=== PATIENT | female | born 1965 | race Caucasian/White ===

== ENCOUNTER 2017-03-10 09:00 | Outpatient (RCR) | payer MEDICAID, SELFPAY | END 2017-03-10 23:59 | LOC: PT.CARL 09:00 | PROVIDERS: Referring Provider Neurological Surgery; Visit Provider Neurological Surgery | DX: M54.12 Radiculopathy, cervical region (principal); G93.0 Cerebral cysts | CPT/HCPCS: 97162 ==

== ENCOUNTER 2017-03-12 09:49 | Outpatient (RCR) | payer MEDICAID, SELFPAY | END 2017-03-12 23:59 | LOC: PT 09:49 | PROVIDERS: Family Provider Physician Assistant; PCP Physician Assistant; Visit Provider Neurological Surgery | DX: M54.12 Radiculopathy, cervical region (principal) ==

== ENCOUNTER → 2017-04-18 10:17 | Outpatient (CLI) | payer MEDICAID, SELFPAY ==
[2017-04-18 20:35] LABS: Amphetamine/Metha Screen,Urine Negative ng/mL (<1000); Barbiturates Screen,Urine Negative ng/mL (<200); Benzodiazepines Screen,Urine Negative ng/mL (200); Cannabinoid Screen,Urine Positive ng/mL (<50); Cocaine Screen,Urine Negative ng/g (<300); Methadone Screen,Urine Negative ng/mL (<300); Opiate Screen,Urine Positive ng/mL (<300); Phencyclidine Screen,Urine Negative ng/mL (<25)
== END ==
PROVIDERS: Visit Provider Nurse Practitioner Family
DX: M54.9 Dorsalgia, unspecified (principal); Z79.899 Other long term (current) drug therapy
CPT/HCPCS: 80305

== ENCOUNTER 2017-05-25 09:30 | Outpatient (RCR) | payer MEDICAID, SELFPAY | END 2017-06-01 13:00 | disposition home or self-care (01) | LOC: PT 09:30 | PROVIDERS: Family Provider Physician Assistant; PCP Physician Assistant; Visit Provider Neurological Surgery | DX: G93.0 Cerebral cysts (principal); M50.20 Other cervical disc displacement, unspecified cervical region | CPT/HCPCS: 97035; 97110 ==

== ENCOUNTER 2017-06-20 09:00 | Outpatient (RCR) | payer MEDICAID, SELFPAY ==
--- NOTE | 2017-06-09 10:26 | HMH.PTOPWND ---
Rehab Outpt Wound Evaluation Rehab OP Wound Evaluation Start: 06/09/17 10:22 Freq: Status: Active Protocol: Document 06/09/17 10:23 ROYA (Rec: 06/09/17 10:26 ROYA [id number]) Electronically Signed By Hubert Ponce, PT 06/09/17 10:23 Subjective/History History History Pt presents with c/o left UE edema x ~ 12 yrs due to severeal left breast lumpectomies with biopsy. 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 SHe has had treatment for lymphedema in the past with good results. Currently she c/ o heavy feeling in the left UE . Lymphedema Eval Classification of Lymphedema Secondary Lymphedema Yes Stage of Lymphedema Lymphedema stages Stage 0 (subjective c/o heaviness and aching) Pain Scale Pain Scale (0-10) 3 Upper Extremity Measurements Left MCP Measurement (cm) 18.8 Web Space Measurement (cm) 20.8 Ulnar Styloid Process Measurement (cm) 17.1 10 cm Proximal to Ulnar Styloid 23.3 Measurement (cm) 20 cm Proximal to Ulnar Styloid 29.4 Measurement (cm) 30 cm Proximal to Ulnar Styloid 34.8 Measurement (cm) 40 cm Proximal to Ulnar Styloid 37.2 Measurement (cm) 50 cm Proximal to Ulnar Styloid 42.0 Measurement (cm) Manual Lymphatic Drainage Treatment Area MLD Treatment Area Left Upper Extremity Wound Problems/Impairments Impairments Problems/Impairmments Palpation Tenderness Increased Edema Lymphedema Present Subjective C/O Pain Impaired Self Care/Self Management Prognosis Rehab Potential Good Clinical Impression Consistent with Diagnosis Yes Short Term Goals Number of Weeks 4 Decreased Palpation Tenderness Yes: to min Patient to Understand Lymphedema Yes Treatment and Exercises Decrease Girth Measurments by (cm) Yes: by 5 cm 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
== END 2017-06-20 09:01 | disposition home or self-care (01) ==
LOC: PT 09:00
PROVIDERS: Family Provider Physician Assistant; PCP Physician Assistant; Visit Provider Physician Assistant
DX: I89.0 Lymphedema, not elsewhere classified (principal)
CPT/HCPCS: 97140; 97162; 97760

== ENCOUNTER 2017-07-26 10:00 | Outpatient (RCR) | payer MEDICAID, SELFPAY ==
--- NOTE | 2017-07-04 10:56 | HMH.PTOPWND ---
Rehab Outpt Wound Evaluation Rehab OP Wound Evaluation Start: 07/04/17 10:51 Freq: Status: Active Protocol: Document 07/04/17 10:51 ROYA (Rec: 07/04/17 10:56 PHOALICE [id number]) Electronically Signed By Hubert Ponce, PT 07/04/17 10:51 Subjective/History History History Pt presents with c/o left UE edema x ~ 12 yrs due to left Lumpectomy with biopsy. She reports minimal tenderness to palpation and left breast feels hard . She reports PMH of interstitial cystitis, cardiac arrythmias, and cervical disc bulge. Lymphedema Eval Classification of Lymphedema Secondary Lymphedema Yes Stage of Lymphedema Lymphedema stages Stage II (Pitting edema, increased fibrosis w/ decreased pitting) Pain Scale Pain Scale (0-10) 3 Manual Lymphatic Drainage Treatment Area MLD Treatment Area Left Upper Extremity Wound Problems/Impairments Impairments Problems/Impairmments Palpation Tenderness Increased Edema Lymphedema Present Subjective C/O Pain Impaired Self Care/Self Management Prognosis Rehab Potential Good Clinical Impression Consistent with Diagnosis Yes Short Term Goals Number of Weeks 4 Decreased Palpation Tenderness Yes: to min Decrease Subjective C/O Pain Yes: 2/10 Patient to Understand Lymphedema Yes Treatment and Exercises Decrease Girth Measurments by (cm) Yes: by 5 cm [facility] Goals Number of Weeks 8 Decreased Palpation Tenderness Yes: to none Decrease Subjective C/O Pain Yes: 1/ Patient to be Ind w/ HEP Yes Patient to Adhere Lymphedema Precautions Yes Decrease Girth Measurments by (cm) Yes: by 10 cm Outpatient Therapy Plan of Care Treatment Plan May Include Therapeutic Exercise Including Home Yes Exercise Program Manual Therapy Techniques Yes Neuromuscular Re-education Yes Orthotics/Bracing/Splinting Yes Massage Yes Manual Lymphatic Drainage Yes Eval/Re-Eval Yes Frequency Times per week 2 Duration Number of Weeks 8 Addendums This patient is a candidate for social Yes or vocational rehab? Patient/Guardian verbally acknowledges Yes understanding of treatment program and consents to further treatment? Patient/Guardian verbally acknowledges Yes
== END 2017-07-26 10:01 | disposition home or self-care (01) ==
LOC: PT 10:00
PROVIDERS: Family Provider Physician Assistant; PCP Physician Assistant; Visit Provider Physician Assistant
DX: I89.0 Lymphedema, not elsewhere classified (principal)
CPT/HCPCS: 97140; 97162; 97760

== ENCOUNTER → 2017-12-05 09:09 | Outpatient (REF) | payer MEDICAID, SELFPAY ==
[2017-12-05 14:04] LABS: Alanine Aminotransferase 29 U/L (12-78); Albumin Level 3.5 gm/dL (3.4-5.0); Albumin/Globulin Ratio 0.9 (1.1-1.8); Alkaline Phosphatase 74 U/L (46-116); Anion Gap 12.1 mEq/L (5-15); Aspartate Amino Transferase 24 U/L (15-37); Bilirubin,Total 0.3 mg/dL (0.2-1.0); Blood Urea Nitrogen 9 mg/dL (7-18); Calcium 9.2 mg/dL (8.5-10.1); Carbon Dioxide 30 mmol/L (21.0-32.0); Chloride 104 mmol/L (98-107); Chol/HDL Ratio 5.2 (1-3.5); Cholesterol 257 mg/dL (140-200); Creatinine,Serum 0.77 mg/dL (0.55-1.02); Estimated Glomerular Filt Rate 78 ml/min (>60); GFR (African American) 95 ML/MIN (>60); Globulin 4.1 gm/dl (1.3-3.2); Glucose 84 mg/dL (74-106); HDL Cholesterol 49 mg/dL (29-89); LDL Cholesterol 176 mg/dL (0-130); Potassium 4.1 mmoL/L (3.5-5.1); Sodium 142 mmol/L (136-145); T4 (Thyroxine) 8.4 ug/dl (4.7-13.3); Thyroid Stimulating Hormone 2.05 uIU/ml (0.358-3.740); Total Protein,Serum 7.6 gm/dL (6.4-8.2); Triglycerides 160 mg/dL (30-200); VLDL Cholesterol 32 mg/dL (0-40)
[2017-12-05 14:11] LABS: Basophils # 0.1 K/mm3 (0-0.2); Basophils % 0.6 % (0.1-2.0); Eosinophils % 0.6 % (0.1-12.0); Hematocrit 40.3 % (37.0-47.0); Hemoglobin 13.6 g/dL (12.2-16.2); Lymphocytes # 2.5 K/mm3 (0.7-4.5); Lymphocytes % 32.8 K/mm3 (10-50); Mean Corpuscular HGB Conc 33.9 g/dL (31.8-35.4); Mean Corpuscular Hemoglobin 30.8 pg (27.0-31.2); Mean Corpuscular Volume 91.1 fl (81-99); Mean Platelet Volume 9.3 fl (7.4-10.4); Monocytes # 0.5 K/mm3 (0.1-1.0); Neutrophils # 4.6 K/mm3 (1.8-7.8); Neutrophils % 60.1 % (37.0-80.0); Platelet Count 285 K/mm3 (142-424); Red Blood Count 4.42 M/mm3 (4.20-5.40); Red Cell Distribution Width 13.2 % (11.5-17.5); White Blood Count 7.7 K/mm3 (4.8-10.8)
[2017-12-05 15:28] LABS: Amphetamine/Metha Screen,Urine Negative ng/mL (<1000); Barbiturates Screen,Urine Negative ng/mL (<200); Benzodiazepines Screen,Urine Negative ng/mL (<200); Cannabinoid Screen,Urine Positive ng/mL (<50); Cocaine Screen,Urine Negative ng/mL (<300); Methadone Screen,Urine Negative ng/mL (<300); Opiate Screen,Urine Positive ng/mL (<300); Phencyclidine Screen,Urine Negative ng/mL (<25)
[2017-12-07 16:47] LABS: Vitamin D 25 Hydroxy 42.1 ng/mL (30.0-100.0)
[2017-12-11 16:08] LABS: Alprazolam Negative (Cutoff=100); Benzodiazepines Positive ng/mL (Cutoff=100); Clonazepam Positive (.); Flurazepam Negative (Cutoff=100); Lorazepam Negative (Cutoff=100); Midazolam Negative (Cutoff=100); Temazepam Negative (Cutoff=100); Triazolam Negative (Cutoff=100)
[2017-12-12 03:32] LABS: Clonazepam Confirm 149 ng/mL (Cutoff=100)
== END ==
LOC: LAB 09:09
PROVIDERS: Visit Provider Physician Assistant
DX: Z00.00 Encounter for general adult medical examination without abnormal findings (principal); Z79.899 Other long term (current) drug therapy
CPT/HCPCS: 80053; 80061; 80305; 80346; 82652; 84436; 84443; 85025

== ENCOUNTER → 2018-02-08 15:21 | Outpatient (CLI) | payer MEDICAID, SELFPAY ==
[2018-02-08 15:52] LABS: Amphetamine/Metha Screen,Urine Negative ng/mL (<1000); Barbiturates Screen,Urine Negative ng/mL (<200); Benzodiazepines Screen,Urine Negative ng/mL (<200); Cannabinoid Screen,Urine Positive ng/mL (<50); Cocaine Screen,Urine Negative ng/mL (<300); Methadone Screen,Urine Negative ng/mL (<300); Opiate Screen,Urine Positive ng/mL (<300); Phencyclidine Screen,Urine Negative ng/mL (<25)
== END ==
PROVIDERS: Visit Provider Physician Assistant
DX: Z79.899 Other long term (current) drug therapy (principal)
CPT/HCPCS: 80305

== ENCOUNTER → 2018-03-08 14:16 | Outpatient (CLI) | payer MEDICAID, SELFPAY ==
[2018-03-08 16:24] LABS: Amphetamine/Metha Screen,Urine Negative ng/mL (<1000); Barbiturates Screen,Urine Negative ng/mL (<200); Benzodiazepines Screen,Urine Negative ng/mL (<200); Cannabinoid Screen,Urine Positive ng/mL (<50); Cocaine Screen,Urine Negative ng/mL (<300); Methadone Screen,Urine Negative ng/mL (<300); Opiate Screen,Urine Positive ng/mL (<300); Phencyclidine Screen,Urine Negative ng/mL (<25)
== END ==
PROVIDERS: Visit Provider Physician Assistant
DX: Z79.899 Other long term (current) drug therapy (principal)
CPT/HCPCS: 80305

== ENCOUNTER → 2018-03-29 08:36 | Outpatient (CLI) | payer MEDICAID, SELFPAY ==
--- NOTE | 2018-03-29 08:38 | US_ITS ---
US abdomen complete HISTORY: Upper abdominal pain with fullness ITS.REASON: Fullness ,bloating, protrusion ORDERING PHYSICIAN: VERNELL Smith PATIENT AGE: 52 years COMPARISON: None FINDINGS: PANCREAS:Unremarkable. No obvious mass or abnormal fluid collection. No ductal dilatation LIVER:No focal liver lesions demonstrated. Homogeneous echogenicity. No intrahepatic biliary ductal dilatation evident RIGHT KIDNEY:Unremarkable. Normal size and echogenicity. No hydronephrosis LEFT KIDNEY:Unremarkable. No hydronephrosis. Normal size and echogenicity. GALLBLADDER:No gallstones, gallbladder wall thickening, pericholecystic fluid, or biliary dilatation. There is a small amount sludge within the gallbladder AORTA:No evidence of aneurysmal dilatation. SPLEEN:Unremarkable. Normal size and echogenicity ASCITES:None demonstrated. IMPRESSION: Small amount sludge in the gallbladder otherwise negative abdominal ultrasound
== END ==
PROVIDERS: PCP Physician Assistant; Visit Provider Physician Assistant
DX: R19.00 Intra-abdominal and pelvic swelling, mass and lump, unspecified site (principal); R19.8 Other specified symptoms and signs involving the digestive system and abdomen
CPT/HCPCS: 76700

== ENCOUNTER 2018-08-08 09:00 | Outpatient (RCR) | payer MEDICAID, SELFPAY ==
--- NOTE | 2018-05-24 15:16 | HMH.PTOPWND ---
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 She currently reports no pain, nut heavy feeling throughout the left UE and intermittent numbness and tingling in the left forearm/hand which is worse at night. She reports decreased endurance when performing tasks with the left UE also. SHe has PMH of arrythmia. Lymphedema Eval Classification of Lymphedema Secondary Lymphedema Yes Stemmer's sign Stemmer's Sign no Stage of Lymphedema Lymphedema stages Stage 0 (subjective c/o heaviness and aching) Skin Changes Dry Skin Yes Other Changes Yes Pain Scale Pain Scale (0-10) 0 Affected Extremities Areas Affected by Lymphedema/Edema Left Upper Extremity Abdomen Left Breast Left Axilla Manual Lymphatic Drainage Treatment Area MLD Treatment Area Left Upper Extremity Abdomen Left Breast Left Axilla Wound Problems/Impairments Impairments Problems/Impairmments Impaired Strength Impaired Endurance Impaired Household Care Impaired Recreational Activities Increased Edema Lymphedema Present Subjective C/O Pain Impaired Self Care/Self Management Prognosis Rehab Potential Good Clinical Impression Consistent with Diagnosis Yes Short Term Goals Number of Weeks 4 Improve Ability For Household Care Yes Patient to Understand Lymphedema Yes Treatment and Exercises Decrease Girth Measurments by (cm) Yes: by 5 cm Senior Care Goals Number of Weeks 8
== END 2018-08-08 09:05 | disposition home or self-care (01) ==
LOC: PT 09:00
PROVIDERS: Visit Provider Physician Assistant
DX: I89.0 Lymphedema, not elsewhere classified (principal)
CPT/HCPCS: 97140; 97162

== ENCOUNTER → 2018-08-28 13:58 | Outpatient (CLI) | payer MEDICAID, SELFPAY ==
[2018-08-28 14:54] LABS: Amphetamine/Metha Screen,Urine Negative ng/mL (<1000); Barbiturates Screen,Urine Negative ng/mL (<200); Benzodiazepines Screen,Urine Negative ng/mL (<200); Cannabinoid Screen,Urine Positive ng/mL (<50); Cocaine Screen,Urine Negative ng/mL (<300); Methadone Screen,Urine Negative ng/mL (<300); Opiate Screen,Urine Positive ng/mL (<300); Phencyclidine Screen,Urine Negative ng/mL (<25)
== END ==
PROVIDERS: Visit Provider Physician Assistant
DX: Z79.899 Other long term (current) drug therapy (principal)
CPT/HCPCS: 80305

== ENCOUNTER → 2018-10-25 13:28 | Outpatient (CLI) | payer MEDICAID, SELFPAY ==
[2018-10-25 14:07] LABS: Basophils # 0.1 K/mm3 (0-0.2); Basophils % 0.8 % (0.1-2.0); Eosinophils # 0.1 K/mm3 (0.0-0.4); Eosinophils % 0.7 % (0.1-12.0); Hematocrit 41.7 % (37.0-47.0); Hemoglobin 13.9 g/dL (12.2-16.2); Lymphocytes # 1.9 K/mm3 (0.7-4.5); Mean Corpuscular HGB Conc 33.3 g/dL (31.8-35.4); Mean Corpuscular Hemoglobin 30.8 pg (27.0-31.2); Mean Corpuscular Volume 92.5 fl (81-99); Mean Platelet Volume 10.3 fl (7.4-10.4); Monocytes # 0.6 K/mm3 (0.1-1.0); Monocytes % 8.4 % (1.7-9.3); Neutrophils # 4.4 K/mm3 (1.8-7.8); Neutrophils % 63.2 % (37.0-80.0); Platelet Count 285 K/mm3 (142-424); Red Blood Count 4.51 M/mm3 (4.20-5.40); Red Cell Distribution Width 13.3 % (11.5-17.5)
[2018-10-25 15:37] LABS: Amphetamine/Metha Screen,Urine Negative ng/mL (<1000); Barbiturates Screen,Urine Negative ng/mL (<200); Benzodiazepines Screen,Urine Negative ng/mL (<200); Cannabinoid Screen,Urine Positive ng/mL (<50); Cocaine Screen,Urine Negative ng/mL (<300); Methadone Screen,Urine Negative ng/mL (<300); Opiate Screen,Urine Positive ng/mL (<300); Phencyclidine Screen,Urine Negative ng/mL (<25)
[2018-10-25 15:40] LABS: Alanine Aminotransferase 19 U/L (12-78); Albumin Level 3.6 gm/dL (3.4-5.0); Albumin/Globulin Ratio 0.9 (1.1-1.8); Alkaline Phosphatase 82 U/L (46-116); Anion Gap 14.7 mEq/L (5-15); Aspartate Amino Transferase 21 U/L (15-37); Bilirubin,Total 0.3 mg/dL (0.2-1.0); Blood Urea Nitrogen 9 mg/dL (7-18); Calcium 9.7 mg/dL (8.5-10.1); Carbon Dioxide 31 mmol/L (21.0-32.0); Chloride 101 mmol/L (98-107); Cholesterol 251 mg/dL (140-200); Creatinine,Serum 0.94 mg/dL (0.55-1.02); Estimated Glomerular Filt Rate 62 ml/min (>60); GFR (African American) 75 ML/MIN (>60); Globulin 4.2 gm/dl (1.3-3.2); Glucose 94 mg/dL (74-106); HDL Cholesterol 50 mg/dL (29-89); LDL Cholesterol 171 mg/dL (0-130); Potassium 4.7 mmoL/L (3.5-5.1); Sodium 142 mmol/L (136-145); T4 (Thyroxine) 8.5 ug/dl (4.7-13.3); Thyroid Stimulating Hormone 2.12 uIU/ml (0.358-3.740); Total Protein,Serum 7.8 gm/dL (6.4-8.2); Triglycerides 148 mg/dL (30-200); VLDL Cholesterol 30 mg/dL (0-40)
[2018-10-27 18:02] LABS: Vitamin D 25 Hydroxy 39.2 ng/mL (30.0-100.0)
[2018-11-04 08:26] LABS: Alprazolam Negative (Cutoff=100); Benzodiazepines Positive ng/mL (Cutoff=100); Clonazepam Positive (.); Flurazepam Negative (Cutoff=100); Lorazepam Negative (Cutoff=100); Midazolam Negative (Cutoff=100); Temazepam Negative (Cutoff=100); Triazolam Negative (Cutoff=100)
[2018-11-04 12:50] LABS: Clonazepam Confirm 141 ng/mL (Cutoff=100)
== END ==
PROVIDERS: Visit Provider Physician Assistant
DX: Z79.899 Other long term (current) drug therapy (principal); R53.83 Other fatigue; R30.9 Painful micturition, unspecified; J02.9 Acute pharyngitis, unspecified
CPT/HCPCS: 80053; 80061; 80305; 80346; 82652; 84436; 84443; 85025

== ENCOUNTER 2019-03-20 09:00 | Outpatient (RCR) | payer MEDICAID, SELFPAY ==
--- NOTE | 2018-12-26 10:01 | HMH.PTOPWND ---
Rehab Outpt Wound Evaluation Rehab OP Wound Evaluation Start: 12/26/18 09:05 Freq: Status: Active Protocol: Document 12/26/18 09:55 ROYA (Rec: 12/26/18 10:01 ROYA [id number]) Electronically Signed By Hubert Ponce, PT 12/26/18 09:55 Subjective/History History History Pt is 53 yowf who presents with > 10 yr hx of left UE edema S/P several left breast biopsies and lumpectomy, worse x 2-3 mos. She reports no c/o pain this date, just heavy feeling. She also has no c/o tenderness to palpation throughout the left UE. Fibrotic tissue noted throughout the left UE, but minimal edema in the left hand . She has hx of Anxiety, chronic neck and back pain, and interstitial cystitis. Lymphedema Eval Classification of Lymphedema Secondary Lymphedema Yes Stemmer's sign Stemmer's Sign no Stage of Lymphedema Lymphedema stages Stage I (Pitting edema, reduces w/ elevation, no fibrosis) Skin Changes Dry Skin Yes Skin Folds Yes Other Changes Yes Pain Scale Pain Scale (0-10) 0 Radiation Therapy Has received radiation therapy no Chemo Therapy Has received chemo therapy no Affected Extremities Areas Affected by Lymphedema/Edema Left Upper Extremity,Left Breast,Left Axilla Manual Lymphatic Drainage Treatment Area MLD Treatment Area Left Upper Extremity,Left Breast,Left Axilla Wound Problems/Impairments Impairments Problems/Impairmments Impaired Endurance,Impaired Lifting,Impaired Recreational Activities,Increased Edema, Lymphedema Present,Subjective C/O Pain,Impaired Self Care/ Self Management Prognosis Rehab Potential Good Clinical Impression Consistent with Diagnosis Yes Short Term Goals Number of Weeks 4 Decrease Lymphedema Yes Patient to Understand Lymphedema Yes Treatment and Exercises Decrease Girth Measurments by (cm) Yes: by 10 cm 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
--- NOTE | 2019-01-25 09:11 | HMH.RHREAS ---
Rehab Reassessment Rehab OP Re-assessment Start: 01/25/19 09:07 Freq: Status: Active Protocol: Document 01/25/19 09:08 ROYA (Rec: 01/25/19 09:11 ROYA [id number]) Electronically Signed By Hubert Ponce, PT 01/25/19 09:08 Rehab Re-assessment Subjective Subjective Pt reports her left UE contimues to feel heavy, but some better. Objective Objective Notes Left UE edema in the brachial area feels less stiff and is beginning to soften. Assessment Progress Assessment Progressing as Expected Assessment Notes Pt circumferential measurements have shown no change, but edema seems to be less stiff. Patient goals met none Goals Not Met ST,2,3 LT,2,3,4,5 Revised Goals none Plan Plan Continue per intial POC. Frequency of Therapy 2x/wk Duration of therapy 8 wks Time and Billing Re-Eval Time 15 Re-Eval Billing Units 1 PHYSICIAN CERTIFICATION: I certify the specified therapy services for Jeannie Lara are required, authorized, and reviewed every 30 days.
== END 2019-03-20 09:05 | disposition home or self-care (01) ==
LOC: PT 09:00
PROVIDERS: Visit Provider Physician Assistant
DX: I89.0 Lymphedema, not elsewhere classified (principal)
CPT/HCPCS: 97140; 97162; 97164; 97760

== ENCOUNTER → 2019-12-13 12:13 | Outpatient (CLI) | payer MEDICAID, SELFPAY ==
--- NOTE | 2019-12-13 12:28 | CT_ITS ---
PROCEDURE: CT SOFT TISSUE NECK W CON Referring Doctor: Tatianna Howard Patient Age:54Y CLINICAL HISTORY: neck mass right neck. One month COMPARISON: CR CS5 CERVICAL SPINE 4 OR 5 VIEWS from 04/16/2015 MR [facility] MRI-BRAIN W/WO from 03/23/2016 TECHNIQUE: Oral Contrast: None IV Contrast: None Axial images obtained with sagittal and coronal reformats. All CT scans at the facility use one or more dose reduction, viz: automated exposure control, ma/kV adjustment per patient size (including targeted exams where dose is matched to indication, i.e. head), or iterative reconstruction technique. FINDINGS: well-defined round/ovoid mass most likely enlarged lymph nodes seen at the right submandibular region, just anterior to the right sternocleidomastoid andabove the level of the hyoid. This measures up to 15 mm vertical times 13 mm AP x 12.6 mm transverse.. BB skin marker was placed over this, indicating it as at the palpable area of concern. Increased number of nodes throughout the right neck/and anterior cervical chain. Although these are smaller some do measure up to 12-13 mm nodes... Only a few very small nodes at left neck. Just deep to this palpable nodule described above, would note additional subtle asymmetric area of soft tissue density extending laterally from right parapharyngeal space, lateral to the tongue. This density viewed just posterior to the angle of the mandible as seen on axial slice 44-40 sagittal 22 coronal 21. It could reflect an additional enlarged node vs or additional soft tissue density nodule/mass arising from right parapharyngeal tissues. Suggest ENT follow-up for these features. ultrasound FNA of the lymph node for cytology if history does not suggest infectious process clinically and patient does not respond clinically as such . Remainder of the neck. There is moderate lingual tonsil tissue bilaterally extending down towards the vallecula however it is fairly symmetric only slightly more evident on the right. Inferior to this there is adequate symmetric as are puriform sinuses period region larynx satisfactory infrahyoid neck unremarkable The parotid gland is appears normal bilaterally with no focal mass or lesion.. The submandibular glands not distinctly visualize as typically seen. This could not exclude the palpable nodule at right submandibular area related to a submandibular nodule/process Emphysematous changes at the right lung apices noted Cervical spine a developing cervical spondylosis. C4/5. Degenerative disc space narrowing with posterior spurring, uncovertebral joint hypertrophy-yield bilateral foraminal encroachment.. C5/6 but mild uncovertebral joint hypertrophy. Mild disc space narrowing C6/7. Up disc space narrowing with hard disc and spurring most evident left paracentral indenting thecal sac but mild bilateral foraminal encroachment. IMPRESSION: Round mass measuring up to 15 mm right submandibular region-, correlates with the clinically palpable area. Likely enlarged node (less likely submandibular gland nodule) Deep to this, note subtle asymmetric soft tissue density extending from the lateral aspect right pharyngeal space. (Sagittal 22, axial 42). This area measures up to 2 cm length X 1 cm AP Asymmetric increased number of lymph nodes along the right neck/and anterior cervical chain.. Others are -moderate size measuring less than 12 cm maximally. . ENT evaluation recommended to further evaluate these features Dictated by: Giovani Freed MD 12/17/2019 10:55 Giovani Freed MD in [place] 12/17/2019 10:55
[2019-12-13 12:48] LABS: Anion Gap 5.1 mEq/L (5-15); Blood Urea Nitrogen 9 mg/dl (7-17); Calcium 9.5 mg/dl (8.4-10.2); Carbon Dioxide 36 mmol/L (22.0-30.0); Chloride 101 mmol/L (98-107); Estimated Glomerular Filt Rate 74 ml/min (>60); GFR (African American) 90 ML/MIN (>60); Glucose 96 mg/dl (74-100); Potassium 4.1 mmoL/L (3.5-5.1); Sodium 138 mmol/L (136-145)
== END ==
PROVIDERS: PCP Physician Assistant; Visit Provider Physician Assistant
DX: Z01.818 Encounter for other preprocedural examination (principal); R22.1 Localized swelling, mass and lump, neck
CPT/HCPCS: 36415; 70491; 80048; Q9967

== ENCOUNTER → 2019-12-25 16:05 | Outpatient (CLI) | payer MEDICAID, SELFPAY ==
[2019-12-25 16:08] LABS: MANUAL DIFFERENTIAL MANUAL DIFFERENTIAL (MANUAL DIFF)
--- NOTE | 2019-12-25 16:13 | XR_ITS ---
PROCEDURE: XR CHEST 2V CLINICAL HISTORY: mass right neck Right-sided neck mass COMPARISON: CR CXR2V XR chest 2V from 06/26/2017 CR XR CHEST 2V from 02/16/2019 CR XR CHEST 2V from 05/13/2019 FINDINGS: The cardiomediastinal silhouette and pulmonary vascularity are within normal limits. There is some pleural thickening in the left mid lung adjacent to some old rib fractures. Lungs otherwise clear. There is mild hyperinflation suggesting COPD. No acute bony abnormalities. IMPRESSION: COPD. No acute finding. Dictated by: Arnoldo Burroughs MD 12/25/2019 16:56 Arnoldo Burroughs MD in [place] 12/25/2019 16:56
[2019-12-25 16:59] LABS: Basophils # 0.1 K/mm3 (0-0.2); Eosinophils # 0.1 K/mm3 (0.0-0.4); Eosinophils % 1.1 % (0.1-12.0); Hematocrit 41.3 % (37.0-47.0); Hemoglobin 13.5 g/dL (12.2-16.2); Lymphocytes # 3.8 K/mm3 (0.7-4.5); Lymphocytes % 38.1 % (10-50); Mean Corpuscular HGB Conc 32.7 g/dL (31.8-35.4); Mean Corpuscular Volume 94.8 fl (81-99); Mean Platelet Volume 9.4 fl (7.4-10.4); Monocytes # 0.8 K/mm3 (0.1-1.0); Monocytes % 8.2 % (1.7-9.3); Neutrophils # 5.2 K/mm3 (1.8-7.8); Neutrophils % 51.6 % (37.0-80.0); Platelet Count 268 K/mm3 (142-424); Red Blood Count 4.36 M/mm3 (4.20-5.40); Red Cell Distribution Width 12.9 % (11.5-17.5)
[2019-12-25 18:14] LABS: Alanine Aminotransferase 14 U/L (12-78); Albumin Level 4.3 g/dl (3.5-5.0); Albumin/Globulin Ratio 1.3 (1.1-1.8); Alkaline Phosphatase 81 U/L (38-126); Anion Gap 11.9 mEq/L (5-15); Aspartate Amino Transferase 30 U/L (14-36); Bilirubin,Total 0.5 mg/dl (0.2-1.3); Blood Urea Nitrogen 9 mg/dl (7-17); Calcium 9.8 mg/dl (8.4-10.2); Carbon Dioxide 34 mmol/L (22.0-30.0); Chloride 100 mmol/L (98-107); Estimated Glomerular Filt Rate 74 ml/min (>60); GFR (African American) 90 ML/MIN (>60); Globulin 3.3 g/dL (1.3-3.2); Glucose 90 mg/dl (74-100); Potassium 4.9 mmoL/L (3.5-5.1); Sodium 141 mmol/L (136-145); Total Protein,Serum 7.6 g/dl (6.3-8.2)
[2019-12-25 21:28] LABS: Lymphocytes % 49 % (10-50); Monocytes % 2 % (2-9); Neutrophils % 49 % (42-76); Platelet Estimate Normal; RBC Morphology Normal; Total Cells Counted 100
== END ==
PROVIDERS: Visit Provider Otolaryngology
DX: R22.0 Localized swelling, mass and lump, head (principal)
CPT/HCPCS: 36415; 71046; 80053; 85007; 85014; 85018; 85048; 85049

== ENCOUNTER → 2020-01-16 12:28 | Outpatient (CLI) | payer MEDICAID, SELFPAY ==
--- NOTE | 2020-01-16 12:55 | US_ITS ---
PROCEDURE: US BIOPSY GUIDANCE CLINICAL INDICATION: RT SUBMANDIBULAR MASS COMPARISON: No exams were available for comparison TECHNIQUE: Following obtaining informed consent, using aseptic technique and local anesthesia with buffered lidocaine, fine-needle aspiration was performed of the nodule of interest using sonographic guidance. 3 passes were made into the nodule with a 21-gauge needle. Specimen was given to cytology with 2 specimens for RPMI. This The patient tolerated the procedure well without evidence of immediate complications and left the ultrasound suite in stable condition. Core biopsy could not be performed due to the small size of the nodule and is immediate subcutaneous location. FINDINGS: There is a hypoechoic node in the right neck in the submandibular area which measures 17 by 9 mm and is in the immediate subcutaneous region only 4 mm deep. This was targeted for biopsy. CYTOLOGY: Polymorphous lymphocytes. Please see cytology report IMPRESSION: Uneventful ultrasound-guided fine needle aspiration right submandibular lymph node showing polymorphous lymphocytes. Please see cytology report for details Dictated by: Arnoldo Burroughs MD 01/19/2020 08:58 Arnoldo Burroughs MD in [place] 01/19/2020 08:58
== END ==
PROVIDERS: PCP Physician Assistant; Visit Provider Otolaryngology
DX: R22.0 Localized swelling, mass and lump, head (principal)
CPT/HCPCS: 10005; 76942

== ENCOUNTER → 2020-01-30 08:25 | Outpatient (CLI) | payer MEDICAID, SELFPAY ==
[2020-01-30 09:32] LABS: Basophils # 0.1 K/mm3 (0-0.2); Basophils % 0.7 % (0.1-2.0); Eosinophils # 0.1 K/mm3 (0.0-0.4); Eosinophils % 0.7 % (0.1-12.0); Hematocrit 43.6 % (37.0-47.0); Hemoglobin 14.5 g/dL (12.2-16.2); Lymphocytes # 2.4 K/mm3 (0.7-4.5); Lymphocytes % 26.9 % (10-50); Mean Corpuscular HGB Conc 33.3 g/dL (31.8-35.4); Mean Corpuscular Volume 93.1 fl (81-99); Mean Platelet Volume 9.8 fl (7.4-10.4); Monocytes # 0.4 K/mm3 (0.1-1.0); Monocytes % 4.8 % (1.7-9.3); Neutrophils # 5.9 K/mm3 (1.8-7.8); Neutrophils % 66.9 % (37.0-80.0); Platelet Count 284 K/mm3 (142-424); Red Blood Count 4.69 M/mm3 (4.20-5.40); Red Cell Distribution Width 13.4 % (11.5-17.5); White Blood Count 8.8 K/mm3 (4.8-10.8)
[2020-01-30 10:47] LABS: Erythrocyte Sedimentation Rate 26 mm/hr (0-30)
[2020-01-30 11:03] LABS: Chloride 101 mmol/L (98-107); Potassium 4.3 mmoL/L (3.5-5.1); Sodium 139 mmol/L (136-145)
[2020-01-30 11:06] LABS: Alanine Aminotransferase 14 U/L (12-78); Albumin/Globulin Ratio 1.2 (1.1-1.8); Alkaline Phosphatase 71 U/L (38-126); Anion Gap 9.3 mEq/L (5-15); Aspartate Amino Transferase 28 U/L (14-36); Bilirubin,Total 0.3 mg/dl (0.2-1.3); Blood Urea Nitrogen 11 mg/dl (7-17); Carbon Dioxide 33 mmol/L (22.0-30.0); Estimated Glomerular Filt Rate 74 ml/min (>60); GFR (African American) 90 ML/MIN (>60); Globulin 3.3 g/dL (1.3-3.2); Total Protein,Serum 7.3 g/dl (6.3-8.2)
[2020-01-30 11:07] LABS: Calcium 9.8 mg/dl (8.4-10.2); Glucose 95 mg/dl (74-100)
[2020-01-30 11:33] LABS: Coronavirus 19 IgG Antibody Negative (Negative); Coronavirus 19 IgM Antibody Negative (Negative)
== END ==
PROVIDERS: Visit Provider Otolaryngology
DX: Z01.818 Encounter for other preprocedural examination (principal); R22.0 Localized swelling, mass and lump, head; C85.90 Non-Hodgkin lymphoma, unspecified, unspecified site
CPT/HCPCS: 36415; 80053; 85025; 85651; 86328; 93005

== ENCOUNTER 2020-01-31 06:45 | Day surgery (SDC) | payer MEDICAID, SELFPAY ==
[2020-01-29 09:34] VITALS: BMI 28.6
--- NOTE | 2020-01-30 08:57 | ECG_ITS ---
APPROVED REPORT Exam: Resting ECG HR:76 bpm ECG Measurements Heart Rate 76 AXES VA 168 P 69 QRSd 72 QRS 82 QT 348 T 72 QTc 391 Conclusion Sinus rhythm with occasional premature ventricular complexes Low voltage QRS Late r wave progression Abnormal ECG Electronically signed by : Ildefonso Alan, 02/01/2020 19:23:33
[2020-01-31] VITALS (15 sets, daily range): BP systolic 112–177; BP diastolic 67–107; PULSE 70–90; RESP 12–22; TEMP 36.2–36.3; O2SAT 91–99
--- NOTE | 2020-01-31 07:57 | SUR.PREOP ---
assisted pt to BR and back to stretcher. Pt stated she was comfortable
--- NOTE | 2020-01-31 08:53 | SUR.OPER ---
[id number]-specimen taken to Dr. Plunkett,pathologist at this time
--- NOTE | 2020-01-31 09:02 | SUR.OPER ---
0902-pathology talking to Dr. Shepard at this time on phone
--- NOTE | 2020-01-31 09:13 | HMH.OPNOTE ---
Date of procedure: 01/31/20 Pre-op Diagnosis:: right deep cervical lymphadenopathy submandibular triangle of the neck Post-op Diagnosis:: same Procedure performed:: Excision of right deep cervical node submandibular triangle of the neck 3 cm Surgeon:: Jarret Shepard MD REFRIGERATION ENGINEER:: Adi Sutton Anesthesia: GETA Estimated blood loss (mL): 5 Operative findings:: same Operative note:: With the patient under general anesthesia, the right neck was prepped and draped. The eyes were protected with Steri-Strips, a minimally invasive invasive incision was marked out in the right submandibular triangle of the neck. Skin, subcutaneous tissue and platysma were incised. Using tenotomy scissors the lump was identified and mobilized fully, it was then removed in entirety and submitted for frozen section analysis. I should note the mass extended deep to the lateral aspect of the hyoid bone and the mandibular branch of the right facial nerve was identified and preserved. Preliminary frozen section analysis was consistent with follicular lymphoma. Bleeding was stopped with bipolar cautery, blood loss was less than 5 cc. The cavity was very deep and accordingly Surgicel snow was placed in it. The platysma and subcutaneous layer was closed with 2-0 Vicryl. A Dermabond closure was done for the epidermal area. The patient tolerated the procedure well and was sent to recovery in good general condition. Condition: stable Disposition: PACU Complications:: none
--- NOTE | 2020-01-31 09:15 | P.PN_ITS ---
[facility] Anesthesia Checklist - Structural Data Admitted From: Home Planned Operative Procedure/s: r cervical node bx Consent for Planned Operative Procedure(s) Verified: Yes - Additional verifications Anesthesia Reactions: No Hx Blood Transfusions: No Blood Transfusion Reaction: No - Airway Assessment C-Spine Mobility Assessed: Yes TMJ Mobility Assessed: Yes Dentition: Poor Dentition - Neurological Assessment Level of Consciousness: Awake, Alert, Appropriate - Anesthesia Plan Anesthesia Risk discussed: Yes Anesthesia Plan: Verified ASA Class: II Anesthesia Type: General [facility] History I have reviewed the patient's past medical history: Yes Medical History: Reports:: Anxiety, Arrhythmia, Cancer (left breast tumor), Gastroesophageal Reflux Disease(GERD), Hyperlipidemia Denies:: Diabetes Mellitus Type 1, Diabetes Mellitus Type 2, Internal Pacemaker, Lung Disease, MRSA, Seizures *Have you ever received a pneumonia vaccine?: No *Have you received a flu vaccine this season?: Yes Other Medical History: Reports: Arthritis, Glaucoma. Denies: Blood Transfusion Reaction Anesthesia experience/problems:: none Laterality Cases: Left: Breast Biopsy Other Surgeries: Yes: Colonoscopy, , Other. No: Pacemaker Amputation: No Fractures: No - *Social History Last grade of school completed: Advanced degree Smoking Status: Never smoker Alcohol Intake: never Substance Use Type: denies use *Occupational Status:: unemployed Housing: house Household Members: spouse *Travel in the last 8 weeks: None - Psychiatric History Pschychiatric History:: Reports:: Anxiety Family Hx:: Cancer, Heart Attack, Hypertension, Coronary Artery Disease, Hyperlipidemia
--- NOTE | 2020-01-31 09:17 | P.PN_ITS ---
[facility] Anesthesia Record Part I Intake, IV Amount: 1,500 Estimated blood loss (mL): 0 Urine output (mL): 0 Blood Pressure: 150/79 SaO2: 99 Pulse Rate: 78 Respiratory Rate: 12 Temperature: 97.3 F Patient is:: Awake, Stable Stable to PACU at:: 09:15
--- NOTE | 2020-01-31 14:56 | SUR.PHASEI ---
Patient has regularly irregular heart rhythm. Patient c/o pain 7-8 of 10 while in PACU, she received morphine 4 mg IVP and demerol 50 mg IVP while in the PACU. This pain medication did not alleviate her pain. I asked the patient what she takes at home if she should ever have severe pain. She stated that she takes Lortabs every day for multiple health conditions. She also stated that she had them with her in her purse. I told the patient that the meds I had been giving will not compete with the Lortabs and that she should take them when she gets home. I spoke with Dr Shepard later after the patient went on to post op and he told me he was aware the patient was on a day regimen of Lortabs, that is why she did not receive any pain meds from him.
--- NOTE | 2020-01-31 16:29 | SUR.PHASEI ---
Most blood pressures taken on left calf, continued to be high, moved to right arm, noted much lower, unable to used left arm.
--- NOTE | 2020-02-05 07:48 | P.PN_ITS ---
[facility] Anesthesia Record Part II Discharge Time: 09:45 Destination: [facility] PACU nurse assessment reviewed?: Yes Patient Condition:: Good Anesthesia Complications:: None Swallowing reflex intact?: Yes Cyanosis?: No Blood Pressure: 113/74 Pulse Rate: 78 Temperature: 97.3 F Mental Status: Alert & Oriented Pain level:: 6 Nausea and/or vomitting:: None Intake, IV Amount: 1,500
[2020-02-05 07:49] VITALS: BP 113/74; PULSE 78; TEMP 36.3
== END 2020-01-31 10:56 | disposition home or self-care (01) ==
LOC: OR 06:45
PROVIDERS: PCP Physician Assistant; Visit Provider Otolaryngology
PROC: (CPT 38510; principal; 2020-01-31 08:30)
DX: C82.01 Follicular lymphoma grade I, lymph nodes of head, face, and neck; Z85.3 Personal history of malignant neoplasm of breast; K21.9 Gastro-esophageal reflux disease without esophagitis; E78.5 Hyperlipidemia, unspecified; F41.9 Anxiety disorder, unspecified; M19.90 Unspecified osteoarthritis, unspecified site; Z82.3 Family history of stroke; Z82.49 Family history of ischemic heart disease and other diseases of the circulatory system; Z83.438 Family history of other disorder of lipoprotein metabolism and other lipidemia; Z88.0 Allergy status to penicillin; Z79.899 Other long term (current) drug therapy
CPT/HCPCS: 38510; 93005; 96374; 96375; J2405; J2710

== ENCOUNTER → 2020-05-21 14:05 | Outpatient (CLI) | payer MEDICAID, SELFPAY ==
[2020-05-21 14:53] LABS: Benzodiazepines Screen,Urine Negative ng/ml (<200)
[2020-05-21 14:54] LABS: Amphetamine/Metha Screen,Urine Negative ng/ml (<1000); Barbiturates Screen,Urine Negative ng/ml (<200)
[2020-05-21 14:55] LABS: Cannabinoid Screen,Urine Positive ng/ml (<50)
[2020-05-21 14:56] LABS: Cocaine Screen,Urine Negative ng/ml (<300); Methadone Screen,Urine Negative ng/ml (<300)
[2020-05-21 14:57] LABS: Opiate Screen,Urine Positive ng/ml (<300)
[2020-05-21 14:58] LABS: Phencyclidine Screen,Urine Negative ng/ml (<25)
== END ==
PROVIDERS: Visit Provider Physician Assistant
DX: R30.0 Dysuria (principal); Z79.899 Other long term (current) drug therapy
CPT/HCPCS: 80305; 87086

== ENCOUNTER → 2020-05-29 09:57 | Outpatient (CLI) | payer MEDICAID, SELFPAY ==
[2020-05-29 11:34] LABS: Alanine Aminotransferase 16 U/L (12-78); Albumin Level 4.5 g/dl (3.5-5.0); Albumin/Globulin Ratio 1.2 (1.1-1.8); Alkaline Phosphatase 79 U/L (38-126); Anion Gap 13.3 mEq/L (5-15); Aspartate Amino Transferase 31 U/L (14-36); Bilirubin,Total 0.5 mg/dl (0.2-1.3); Blood Urea Nitrogen 10 mg/dl (7-17); Calcium 9.8 mg/dl (8.4-10.2); Carbon Dioxide 31 mmol/L (22.0-30.0); Chloride 102 mmol/L (98-107); Estimated Glomerular Filt Rate 74 ml/min (>60); GFR (African American) 90 ML/MIN (>60); Globulin 3.8 g/dL (1.3-3.2); Glucose 89 mg/dl (74-100); Potassium 4.3 mmoL/L (3.5-5.1); Sodium 142 mmol/L (136-145); Total Protein,Serum 8.3 g/dl (6.3-8.2)
[2020-05-29 12:14] LABS: Basophils # 0.1 K/mm3 (0-0.2); Basophils % 0.9 % (0.1-2.0); Eosinophils # 0.1 K/mm3 (0.0-0.4); Eosinophils % 0.6 % (0.1-12.0); Hematocrit 43.2 % (37.0-47.0); Hemoglobin 14.2 g/dL (12.2-16.2); Lymphocytes # 2.5 K/mm3 (0.7-4.5); Lymphocytes % 25.5 % (10-50); Mean Corpuscular Hemoglobin 30.2 pg (27.0-31.2); Mean Corpuscular Volume 91.5 fl (81-99); Mean Platelet Volume 9.7 fl (7.4-10.4); Monocytes # 0.6 K/mm3 (0.1-1.0); Monocytes % 6.3 % (1.7-9.3); Neutrophils # 6.5 K/mm3 (1.8-7.8); Neutrophils % 66.8 % (37.0-80.0); Platelet Count 263 K/mm3 (142-424); Red Blood Count 4.72 M/mm3 (4.20-5.40); Red Cell Distribution Width 12.8 % (11.5-17.5); White Blood Count 9.7 K/mm3 (4.8-10.8)
== END ==
PROVIDERS: Visit Provider Internal Medicine Medical Oncology
DX: C82.90 Follicular lymphoma, unspecified, unspecified site (principal)
CPT/HCPCS: 36415; 80053; 85025

== ENCOUNTER → 2020-07-04 09:48 | Outpatient (CLI) | payer MEDICAID, SELFPAY ==
[2020-07-04 10:18] LABS: Basophils # 0.1 K/mm3 (0-0.2); Basophils % 0.9 % (0.1-2.0); Eosinophils # 0.1 K/mm3 (0.0-0.4); Eosinophils % 0.9 % (0.1-12.0); Hematocrit 41.6 % (37.0-47.0); Hemoglobin 13.8 g/dL (12.2-16.2); Lymphocytes # 2.3 K/mm3 (0.7-4.5); Lymphocytes % 28.3 % (10-50); Mean Corpuscular HGB Conc 33.1 g/dL (31.8-35.4); Mean Corpuscular Hemoglobin 30.4 pg (27.0-31.2); Mean Corpuscular Volume 91.9 fl (81-99); Mean Platelet Volume 9.2 fl (7.4-10.4); Monocytes # 0.4 K/mm3 (0.1-1.0); Monocytes % 5.3 % (1.7-9.3); Neutrophils # 5.2 K/mm3 (1.8-7.8); Neutrophils % 64.6 % (37.0-80.0); Platelet Count 233 K/mm3 (142-424); Red Blood Count 4.53 M/mm3 (4.20-5.40); Red Cell Distribution Width 13.1 % (11.5-17.5)
[2020-07-04 11:07] LABS: Anion Gap 11.2 mEq/L (5-15); Blood Urea Nitrogen 14 mg/dl (7-17); Calcium 9.8 mg/dl (8.4-10.2); Carbon Dioxide 33 mmol/L (22.0-30.0); Chloride 100 mmol/L (98-107); Estimated Glomerular Filt Rate 65 ml/min (>60); GFR (African American) 78 ML/MIN (>60); Glucose 103 mg/dl (74-100); Potassium 4.2 mmoL/L (3.5-5.1); Sodium 140 mmol/L (136-145)
[2020-07-04 11:30] LABS: Coronavirus 19 IgG Antibody Negative (Negative); Coronavirus 19 IgM Antibody Negative (Negative)
== END ==
PROVIDERS: Visit Provider Urology
DX: Z01.812 Encounter for preprocedural laboratory examination (principal); Z11.52 Encounter for screening for COVID-19; N30.10 Interstitial cystitis (chronic) without hematuria
CPT/HCPCS: 36415; 80048; 85025; 86328

== ENCOUNTER → 2020-07-18 09:00 | Outpatient (CLI) | payer MEDICAID, SELFPAY | PROVIDERS: Visit Provider Urology | DX: Z01.812 Encounter for preprocedural laboratory examination (principal); Z11.52 Encounter for screening for COVID-19; N30.10 Interstitial cystitis (chronic) without hematuria | CPT/HCPCS: U0003 ==

== ENCOUNTER 2020-07-21 07:34 | Day surgery (SDC) | payer MEDICAID, SELFPAY ==
[2020-07-21] VITALS (10 sets, daily range): BP systolic 115–157; BP diastolic 77–90; PULSE 75–88; RESP 16–20; TEMP 36.2–36.8; O2SAT 93–99
--- NOTE | 2020-07-21 08:59 | P.PN_ITS ---
[facility] Anesthesia Checklist - Structural Data Admitted From: Home Planned Operative Procedure/s: cysto Consent for Planned Operative Procedure(s) Verified: Yes - Additional verifications Anesthesia Reactions: No Hx Blood Transfusions: No Blood Transfusion Reaction: No - Airway Assessment C-Spine Mobility Assessed: Yes TMJ Mobility Assessed: Yes Dentition: Poor Dentition - Neurological Assessment Level of Consciousness: Awake, Alert, Appropriate - Anesthesia Plan Anesthesia Risk discussed: Yes Anesthesia Plan: Verified ASA Class: III Anesthesia Type: General [facility] History I have reviewed the patient's past medical history: Yes Medical History: Reports:: Anxiety, Arrhythmia, Cancer, Gastroesophageal Reflux Disease(GERD), Hyperlipidemia Denies:: Diabetes Mellitus Type 1, Diabetes Mellitus Type 2, Internal Pacemaker, Lung Disease, MRSA, Seizures *Have you ever received a pneumonia vaccine?: Yes *Have you received a flu vaccine this season?: Yes Other Medical History: Reports: Arthritis, Glaucoma. Denies: Blood Transfusion Reaction Anesthesia experience/problems:: none Laterality Cases: Left: Breast Biopsy Other Surgeries: Yes: No Previous Surgery, Cancer Surgery, Cardiac Catheterization, Colonoscopy, , Other. No: Pacemaker Amputation: No Fractures: No - *Social History Smoking Status: Never smoker Alcohol Intake: never Substance Use Type: denies use *Occupational Status:: unemployed Housing: house Household Members: spouse *Travel in the last 8 weeks: None - Psychiatric History Pschychiatric History:: Reports:: Anxiety Family Hx:: Cancer, Heart Attack, Hypertension, Coronary Artery Disease, H yperlipidemia
--- NOTE | 2020-07-21 10:25 | HMH.ANESI ---
[facility] Anesthesia Record Part I Intake, IV Amount: 400 Estimated blood loss (mL): 0 Urine output (mL): 0 Blood Products used (#): none Blood Pressure: 139/87 SaO2: 95 Pulse Rate: 75 Respiratory Rate: 16 Temperature: 98.3 F Patient is:: Drowsy, Stable Stable to PACU at:: 10:20
--- NOTE | 2020-07-21 11:20 | HMH.ANESII ---
[facility] Anesthesia Record Part II Discharge Time: 10:50 Destination: [facility] ([facility]) PACU nurse assessment reviewed?: Yes Patient Condition:: Good Anesthesia Complications:: None Swallowing reflex intact?: Yes Cyanosis?: No Blood Pressure: 137/87 Pulse Rate: 78 Temperature: 98.3 F Mental Status: Alert & Oriented Pain level:: 0 Nausea and/or vomitting:: None Intake, IV Amount: 0
--- NOTE | 2020-07-21 12:43 | P.OP_ITS ---
Date of procedure: 07/21/20 Pre-op Diagnosis:: Bladder pain, dysuria Post-op Diagnosis:: Signs of interstitial cystitis Procedure performed:: Cystoscopy with hydrodistention of bladder Surgeon:: Boo Lopez MD CARVING MACHINE OPERATOR:: Stephan Mcneil Anesthesia: LMA Estimated blood loss (mL): 0 Clinical Note:: Patient is a 55-year-old white female with long history of lower urinary tract symptoms. She was recently placed on a course of Ustell and she does state some improvement in symptoms with that medication. She presents today for urologic evaluation under anesthesia. Operative findings:: Bladder was able to be distended to 900 cc. The bladder showed ulcerations and bleeding after hydrodistention consistent with interstitial cystitis. Operative note:: Patient taken to the operating room after informed consent was obtained. Was placed on the operating room table and general anesthesia administered. Preoperative antibiotics and sequential compression devices placed. She was then placed into the dorsal lithotomy position and prepped draped in the standard surgical fashion. Vaginal examination was within normal limits. 22 Tajik cystoscope passed into the urethra and into the bladder without difficulty. The bladder was examined in a systematic fashion and there is no evidence of mucosal abnormalities, stones, diverticula or trabeculation. The ureteral orifices in their normal anatomic position with clear efflux of urine. With the 3 L bag placed that the appropriate height above the abdomen water was allowed to flow through the scope under gravity until resistance was noted at the inflow bubble. Water then stopped and the scope removed from the sheath. 900 cc was emptied from the bladder and the scope was replaced and the bladder examined. Was evidence of some ulcerated areas in multiple areas along the floor the bladder. These areas were noted to be bleeding. The bladder was distended a second time and again 900 cc was obtained afterwards. Again of note was the the ulcerated areas with bleeding noted. Bladder then drained and the scope removed. Urojet placed into the urethra. Patient tolerated procedure well no complications. Discussed the findings with her today and I will be sending her home with prescription for Elmiron 100 mg twice daily, Myrbetriq 50 mg p.o. daily and Vistaril 25 mg p.o. daily. I will see her back in 1 month in follow-up. Condition: stable Disposition: PACU Specimens:: None Complications:: None
== END 2020-07-21 11:21 | disposition home or self-care (01) ==
LOC: OR 07:35
PROVIDERS: PCP Physician Assistant; Visit Provider Urology
PROC: 0TJB8ZZ Inspection of Bladder, Via Natural or Artificial Opening Endoscopic (ICD-10-PCS; CPT 52000; principal; 2020-07-21 09:30)
DX: N30.10 Interstitial cystitis (chronic) without hematuria; F41.9 Anxiety disorder, unspecified; I49.9 Cardiac arrhythmia, unspecified; K21.9 Gastro-esophageal reflux disease without esophagitis; E78.5 Hyperlipidemia, unspecified; M19.90 Unspecified osteoarthritis, unspecified site; H40.9 Unspecified glaucoma; Z85.9 Personal history of malignant neoplasm, unspecified; Z80.9 Family history of malignant neoplasm, unspecified; Z83.438 Family history of other disorder of lipoprotein metabolism and other lipidemia; Z88.0 Allergy status to penicillin; Z79.899 Other long term (current) drug therapy
CPT/HCPCS: 52260; 96374; J2405

== ENCOUNTER → 2020-07-25 08:00 | Outpatient (CLI) | payer MEDICAID, SELFPAY ==
[2020-07-25 08:42] LABS: Basophils # 0.1 K/mm3 (0-0.2); Basophils % 0.5 % (0.1-2.0); Eosinophils % 0.3 % (0.1-12.0); Hematocrit 40.1 % (37.0-47.0); Hemoglobin 13.3 g/dL (12.2-16.2); Lymphocytes # 3.6 K/mm3 (0.7-4.5); Lymphocytes % 25.1 % (10-50); Mean Corpuscular HGB Conc 33.1 g/dL (31.8-35.4); Mean Corpuscular Hemoglobin 30.2 pg (27.0-31.2); Mean Corpuscular Volume 91.3 fl (81-99); Mean Platelet Volume 9.2 fl (7.4-10.4); Monocytes # 0.7 K/mm3 (0.1-1.0); Monocytes % 5.1 % (1.7-9.3); Neutrophils % 69.1 % (37.0-80.0); Platelet Count 289 K/mm3 (142-424); Red Blood Count 4.39 M/mm3 (4.20-5.40); White Blood Count 14.5 K/mm3 (4.8-10.8)
[2020-07-25 09:07] LABS: Potassium 3.8 mmoL/L (3.5-5.1); Sodium 139 mmol/L (136-145)
[2020-07-25 09:10] LABS: Alanine Aminotransferase 12 U/L (12-78); Albumin Level 4.3 g/dl (3.5-5.0); Albumin/Globulin Ratio 1.4 (1.1-1.8); Alkaline Phosphatase 79 U/L (38-126); Aspartate Amino Transferase 22 U/L (14-36); Bilirubin,Total 0.5 mg/dl (0.2-1.3); Blood Urea Nitrogen 15 mg/dl (7-17); Calcium 9.6 mg/dl (8.4-10.2); Carbon Dioxide 29 mmol/L (22.0-30.0); Chol/HDL Ratio 2.8 (1-3.5); Cholesterol 224 mg/dl (140-200); Estimated Glomerular Filt Rate 86 ml/min (>60); GFR (African American) 104 ML/MIN (>60); Globulin 3.1 g/dL (1.3-3.2); Glucose 99 mg/dl (74-100); HDL Cholesterol 79 mg/dl (40-60); Total Protein,Serum 7.4 g/dl (6.3-8.2); Triglycerides 106 mg/dl (30-150); VLDL Cholesterol 21 mg/dL (0-40)
[2020-07-25 09:27] LABS: Free T4 (Free Thyroxine) 1.11 ng/dl (0.78-2.19)
[2020-07-25 09:41] LABS: Thyroid Stimulating Hormone 1.82 uIU/mL (0.465-4.68)
[2020-07-25 09:54] LABS: 25-OH Vitamin D, Total 15.6 ng/mL (30-100)
[2020-07-25 14:51] LABS: Anion Gap 10.8 mEq/L (5-15); Chloride 103 mmol/L (98-107)
== END ==
PROVIDERS: Visit Provider Physician Assistant
DX: C85.90 Non-Hodgkin lymphoma, unspecified, unspecified site (principal); E78.5 Hyperlipidemia, unspecified; R53.83 Other fatigue; E55.9 Vitamin D deficiency, unspecified
CPT/HCPCS: 36415; 80053; 80061; 82306; 84439; 84443; 85025

== ENCOUNTER → 2020-07-28 10:31 | Outpatient (CLI) | payer MEDICAID, SELFPAY ==
--- NOTE | 2020-07-28 10:31 | CT_ITS ---
PROCEDURE: CT SOFT TISSUE NECK WO/W CON CLINICAL HISTORY: lymphadenopaty, follicular lymphoma Hx lymphoma Lymphadenopathy, adenopathy Lymph node removed [id number] ago New knot on rt side marked with BB COMPARISON: CT CT SOFT TISSUE NECK W CON from 12/13/2019 TECHNIQUE: Oral Contrast: None IV Contrast: 75 mL Isovue 370 Axial images obtained with sagittal and coronal reformats. All CT scans at the facility use one or more dose reduction, viz: automated exposure control, ma/kV adjustment per patient size (including targeted exams where dose is matched to indication, i.e. head), or iterative reconstruction technique. FINDINGS: The nasopharynx has an unremarkable appearance. Oropharynx and hypopharynx glottic and subglottic region are unremarkable. Normal size submandibular glands are not present. There is some soft tissue density in the right submandibular area which may be related to a hypoplastic gland. Previously there was an enlarged node in the right submandibular region which is no longer apparent or much smaller and may have been removed in the interval. There are a few small submandibular lymph nodes on both sides. There is a right internal jugular chain node approximately 11 mm and has slightly increased in size. Small nodes are present in the internal jugular chains which appear stable. A BB is placed over an area of palpable concern. There is no abnormality deep to this BB. The sternocleidomastoid muscle is present just deep to the placed BB. The amount of subcutaneous adipose tissue appears less compared to the previous exam. Lung apices are clear. There are centrilobular emphysematous changes. Degenerative changes are present in the cervical spine. IMPRESSION: 1. Previously noted nodule in the right submandibular region is no longer apparent and may have been removed. There is a small cluster of nodes in the right submandibular region. There is an enlarging right internal jugular node measuring 11 mm along with other stable small nodes on both sides. 2. Hypoplastic submandibular glands 3. No abnormality that would correspond to the area of palpable concern. Dictated by: Arnoldo Burroughs MD 07/29/2020 09:16 Arnoldo Burroughs MD in [place] 07/29/2020 09:16
== END ==
PROVIDERS: PCP Physician Assistant; Visit Provider Physician Assistant
DX: C85.90 Non-Hodgkin lymphoma, unspecified, unspecified site (principal)
CPT/HCPCS: 70492; Q9967

== ENCOUNTER → 2020-10-07 08:37 | Outpatient (CLI) | payer MEDICAID, SELFPAY ==
--- NOTE | 2020-10-07 08:38 | CA_ITS ---
APPROVED REPORT Winder Hand: DEE Laterality: Bilateral Study Quality: Good Indications: A-fib, HTN, Hx-lymphoma, lump in right anterior neck Doppler Spectral Velocity Analysis ECA (R) 79.30/13.80 cm/s ECA (L) 66.30/12.80 cm/s dICA (R) 121.20/57.60 cm/s dICA (L) 63.10/19.80 cm/s Julio (R) 80.90/36.00 cm/s Julio (L) 72.20/32.60 cm/s pICA (R) 85.40/19.90 cm/s pICA (L) 57.20/33.10 cm/s dCCA (R) 70.00/28.90 cm/s dCCA (L) 78.60/20.20 cm/s mCCA (R) 95.70/28.90 cm/s mCCA (L) 95.00/35.20 cm/s pCCA (R) 89.90/25.00 cm/s pCCA (L) 115.20/41.20 cm/s Vert (R) 62.90/21.00 cm/s Vert (L) 54.50/19.80 cm/s ICA/CCA 1.70 ICA/CCA 0.92 Findings Duplex evaluation demonstrates stenosis of the right proximal internal carotid artery in the range of 20-49%. Duplex evaluation demonstrates stenosis of the left proximal internal carotid artery in the range of 20-49%. Duplex evaluation demonstrates antegrade flow of the bilateral Vertebral Arteries. Mild plaque noted in Left carotid bulb. Conclusion Duplex evaluation demonstrates stenosis of the right proximal internal carotid artery in the range of 20-49%. Duplex evaluation demonstrates stenosis of the left proximal internal carotid artery in the range of 20-49%. Duplex evaluation demonstrates antegrade flow of the bilateral Vertebral Arteries. Electronically signed by : Arnoldo Burroughs MD 10/09/2020 16:05:03
== END ==
PROVIDERS: PCP Physician Assistant; Visit Provider Physician Assistant
DX: R22.1 Localized swelling, mass and lump, neck (principal)
CPT/HCPCS: 93880

== ENCOUNTER → 2020-11-05 15:32 | Outpatient (CLI) | payer MEDICAID, SELFPAY ==
[2020-11-05 16:57] LABS: Barbiturates Screen,Urine Negative ng/ml (<200); Benzodiazepines Screen,Urine Negative ng/ml (<200)
[2020-11-05 16:58] LABS: Amphetamine/Metha Screen,Urine Negative ng/ml (<1000)
[2020-11-05 16:59] LABS: Cocaine Screen,Urine Negative ng/ml (<300); Methadone Screen,Urine Negative ng/ml (<300)
[2020-11-05 17:00] LABS: Cannabinoid Screen,Urine Positive ng/ml (<50)
[2020-11-05 17:01] LABS: Opiate Screen,Urine Positive ng/ml (<300); Phencyclidine Screen,Urine Negative ng/ml (<25)
== END ==
PROVIDERS: Visit Provider Physician Assistant
DX: Z79.899 Other long term (current) drug therapy (principal)
CPT/HCPCS: 80305

== ENCOUNTER → 2021-02-10 09:57 | Outpatient (CLI) | payer MEDICAID, SELFPAY ==
[2021-02-10 10:27] LABS: Basophils # 0.1 K/mm3 (0-0.2); Basophils % 0.7 % (0.1-2.0); Eosinophils # 0.1 K/mm3 (0.0-0.4); Eosinophils % 0.6 % (0.1-12.0); Hemoglobin 13.7 g/dL (12.2-16.2); Lymphocytes # 2.6 K/mm3 (0.7-4.5); Lymphocytes % 31.7 % (10-50); Mean Corpuscular HGB Conc 33.4 g/dL (31.8-35.4); Mean Corpuscular Hemoglobin 30.7 pg (27.0-31.2); Mean Platelet Volume 9.4 fl (7.4-10.4); Monocytes # 0.4 K/mm3 (0.1-1.0); Monocytes % 4.9 % (1.7-9.3); Platelet Count 281 K/mm3 (142-424); Red Blood Count 4.45 M/mm3 (4.20-5.40); Red Cell Distribution Width 13.1 % (11.5-17.5)
[2021-02-10 11:05] LABS: Chloride 102 mmol/L (98-107); Potassium 4.4 mmoL/L (3.5-5.1); Sodium 141 mmol/L (136-145)
[2021-02-10 11:07] LABS: Blood Urea Nitrogen 12 mg/dl (7-17); Estimated Glomerular Filt Rate 86 ml/min (>60); GFR (African American) 104 ML/MIN (>60)
[2021-02-10 11:08] LABS: Alanine Aminotransferase 12 U/L (12-78); Albumin Level 4.1 g/dl (3.5-5.0); Albumin/Globulin Ratio 1.3 (1.1-1.8); Alkaline Phosphatase 75 U/L (38-126); Anion Gap 8.4 mEq/L (5-15); Aspartate Amino Transferase 32 U/L (14-36); Bilirubin,Total 0.3 mg/dl (0.2-1.3); Calcium 10.1 mg/dl (8.4-10.2); Carbon Dioxide 35 mmol/L (22.0-30.0); Globulin 3.1 g/dL (1.3-3.2); Glucose 100 mg/dl (74-100); Total Protein,Serum 7.2 g/dl (6.3-8.2)
== END ==
PROVIDERS: Visit Provider Internal Medicine Medical Oncology
DX: E78.5 Hyperlipidemia, unspecified (principal)
CPT/HCPCS: 36415; 80053; 85025

== ENCOUNTER → 2021-02-20 09:01 | Outpatient (CLI) | payer MEDICAID, SELFPAY ==
--- NOTE | 2021-02-20 09:04 | XR_ITS ---
PROCEDURE: XR SHOULDER LT MIN 2V CLINICAL INDICATION: LT shoulder pain COMPARISON: CR SHOU3L [id number] VIEWS from 02/25/2014 FINDINGS: No fracture or dislocation. No lytic or blastic change. There is normal mineralization. There are mild osteoarthritic changes of the glenohumeral joint and acromioclavicular joint. No significant subacromial stenosis. Other findings:None. IMPRESSION: Mild osteoarthritis which may be slightly worse. Dictated by: Arnoldo Burroughs MD 02/20/2021 14:48 Arnoldo Burroughs MD in [place] 02/20/2021 14:48
== END ==
PROVIDERS: PCP Physician Assistant; Visit Provider Orthopaedic Surgery
DX: M25.512 Pain in left shoulder (principal)
CPT/HCPCS: 73030

== ENCOUNTER → 2021-02-25 14:37 | Outpatient (CLI) | payer MEDICAID, SELFPAY ==
[2021-02-25 17:12] LABS: Amphetamine/Metha Screen,Urine Negative ng/ml (<1000)
[2021-02-25 17:13] LABS: Barbiturates Screen,Urine Negative ng/ml (<200)
[2021-02-25 17:14] LABS: Benzodiazepines Screen,Urine Negative ng/ml (<200)
[2021-02-25 17:15] LABS: Cannabinoid Screen,Urine Positive ng/ml (<50); Cocaine Screen,Urine Negative ng/ml (<300)
[2021-02-25 17:16] LABS: Methadone Screen,Urine Negative ng/ml (<300)
[2021-02-25 17:17] LABS: Opiate Screen,Urine Positive ng/ml (<300); Phencyclidine Screen,Urine Negative ng/ml (<25)
== END ==
PROVIDERS: Visit Provider Nurse Practitioner Family
DX: M54.50 Low back pain, unspecified (principal); G89.29 Other chronic pain
CPT/HCPCS: 80305

== ENCOUNTER → 2021-03-10 08:00 | Outpatient (CLI) | payer MEDICAID, SELFPAY ==
--- NOTE | 2021-03-10 08:35 | MR_ITS ---
PROCEDURE INFORMATION: Exam: MR Left Upper Extremity Joint Without Contrast; Shoulder Exam date and time: 03/10/2021 8:35 AM Age: 55 years old Clinical indication: Patient HX: Left shoulder pain, limited rom, torn rotator cuff 1 year ago. ; Additional info: Evaluate for rotator cuff tear TECHNIQUE: Imaging protocol: MR of the Left upper extremity without contrast. Exam focused on the shoulder. COMPARISON: CR XR SHOULDER LT MIN 2V 02/20/2021 9:20 AM FINDINGS: Bones and cartilage: Limited degenerative subchondral cystic formation humeral head. No fracture or suspicious marrow signal. Mild osteoarthritis. Type 1 acromion process. Joint spaces: No joint effusion. Glenoid labrum: Limited degenerative changes glenoid labrum without displaced tear. Supraspinatus tendon: Unremarkable. No evidence of tear. Infraspinatus tendon: Degenerative thinning of distal fibers supraspinatus and infraspinatus tendons associated tendinopathy. Tiny 4 mm articular surface tear distal fibers of the infraspinatus. No full-thickness retracted tear or significant muscle atrophy. Subscapularis tendon: Unremarkable. No evidence of tear. Teres minor tendon: Unremarkable. No evidence of tear. Tendon of biceps brachii: Unremarkable. No evidence of tear. Glenohumeral ligaments: Unremarkable. Muscles: See Infraspinatus tendon finding. Soft tissues: Unremarkable. IMPRESSION: Degenerative thinning of distal fibers supraspinatus and infraspinatus tendons associated tendinopathy with mild resultant high-riding humerus. Tiny 4 mm articular surface tear distal fibers of the infraspinatus. No full-thickness retracted tear or significant muscle atrophy.
== END ==
PROVIDERS: PCP Physician Assistant; Visit Provider Orthopaedic Surgery
DX: M25.512 Pain in left shoulder (principal)
CPT/HCPCS: 73221

== ENCOUNTER → 2021-05-15 08:54 | Outpatient (CLI) | payer MEDICAID, SELFPAY ==
--- NOTE | 2021-05-15 08:54 | XR_ITS ---
FINAL REPORT TECHNIQUE: Bone mineral density was calculated of the lumbar spine and hip. CLINICAL HISTORY: post menopausal FINDINGS: Using L1-4, the bone mineral density of the spine is 1.096 g/cm2, corresponding to T-score of 0.4. Using the left hip, the bone mineral density of the femoral neck is 0.645 g/cm2, corresponding to a T-score of -1.8. Using the right hip, the bone mineral density of the femoral neck is 0.605 g/cm2, corresponding to a T-score of -2.2. IMPRESSION: Diminished bone mineral density of each hip consistent with osteopenia. According to FRAX 10 year fracture risk is up to 17 % for major osteoporotic fracture Normal bone mineral density of the lumbar spine. Reviewed, Interpreted and Dictated by Madi Toth III, MD Transcribed by Nyasia Gillespie Authenticated by Madi Toth III, MD on 05/15/2021 11:26:11 AM [facility]
== END ==
PROVIDERS: PCP Physician Assistant; Visit Provider Physician Assistant
DX: Z78.0 Asymptomatic menopausal state (principal)
CPT/HCPCS: 77080

== ENCOUNTER 2021-06-09 09:00 | Outpatient (RCR) | payer MEDICAID, SELFPAY ==
--- NOTE | 2021-03-18 09:43 | HMH.PTOPWND ---
Rehab Outpt Wound Evaluation Rehab OP Wound Evaluation Start: 03/18/21 09:05 Freq: Status: Active Protocol: Document 03/18/21 09:30 ROYA (Rec: 03/18/21 09:43 PHORNE [id number]) Electronically Signed By Hubert Ponce, PT 03/18/21 09:30 Subjective/History History History Pt is 55 yowf who presents with c/o L UE worsening edema x ~ 6-8 mos and L shld pain x ~ 2-3 mos. She has several year hx of L UE lymphedema after multiple breast bx without malignancy noted. She reports the left shld pain began after, lifting some things I shouldn't have. She had MRI performed which shows L SUP/INF tendinitis with possible partial thickness tear. She reports difficulty with ADLs using the L UE due to increased feelings of heaviness and pain. She also reports intermittent numbness/ tingling in the L hand, worse at night. She also has hx of R neck LN resection, 3 area of squamous cell carcinoma removed from her skin, and is being followed by oncology. Subjective Subjective Currently pain 6/10 in the L shld. Lymphedema Eval Classification of Lymphedema Secondary Lymphedema Yes Stemmer's sign Stemmer's Sign no Stage of Lymphedema Lymphedema stages Stage II (Pitting edema, increased fibrosis w/ decreased pitting) Skin Changes Dry Skin Yes Skin Folds Yes Other Changes Yes Pain Scale Pain Scale (0-10) 6 Affected Extremities Areas Affected by Lymphedema/Edema Left Upper Extremity,Left Breast,Left Axilla,Sub Axiallary Region Manual Lymphatic Drainage Treatment Area MLD Treatment Area Left Upper Extremity,Abdomen, Left Breast,Left Axilla,Sub Axiallary Region Wound Problems/Impairments Impairments Problems/Impairmments Palpation Tenderness,Impaired Range of Motion,Impaired Strength,Impaired Endurance,
--- NOTE | 2021-03-18 09:43 | HMH.PTOPEV ---
PT Outpatient Evaluation Rehab PT Outpatient Evaluation Start: 03/18/21 09:05 Freq: Status: Active Protocol: Document 03/18/21 09:30 ROYA (Rec: 03/18/21 09:43 PHORNE [id number]) Electronically Signed By Hubert Ponce, PT 03/18/21 09:30 Outpatient Therapy Plan of Care Treatment Plan May Include Therapeutic Exercise Including Home Yes Exercise Program Manual Therapy Techniques Yes Neuromuscular Re-education Yes Therapeutic Activities to Return to Yes Previous Functional/Work Level ADL/Self Care Education Yes Thermal Modalities Yes Electrical Stimulation Yes Ultrasound/Phonophoresis Yes Iontophoresis Yes Orthotics/Bracing/Splinting Yes Vasopneumatic Compression Pump Yes Massage Yes Manual Lymphatic Drainage Yes Eval/Re-Eval Yes Frequency Times per week 2-3 Duration Number of Weeks 8 Addendums This patient is a candidate for social Yes or vocational rehab? Patient/Guardian verbally acknowledges Yes understanding of treatment program and consents to further treatment? Patient/Guardian verbally acknowledges Yes understanding of diagnosis, prognosis and goals for treatment? G -code Required No Eval Complexity PT Charges 96362 - High Complexity Outpatient Therapy Subjective History Subjective History Pt is 55 yowf who presents with c/o L UE worsening edema x ~ 6-8 mos and L shld pain x ~ 2-3 mos. She has several year hx of L UE lymphedema after multiple breast bx without malignancy noted. She reports the left shld pain began after, lifting some things I shouldn't have. She had MRI performed which shows L SUP/INF tendinitis with possible partial thickness tear. She reports difficulty with ADLs using the L UE due to increased feelings of heaviness and pain. She also reports intermittent numbness/ tingling in the L hand, worse at night. She also has hx of R neck LN resection, 3 area of squamous cell carcinoma removed from her skin, and is being followed by oncology.
--- NOTE | 2021-04-13 09:52 | HMH.RHREAS ---
Rehab Reassessment Rehab OP Re-assessment Start: 04/13/21 09:42 Freq: Status: Active Protocol: Document 04/13/21 09:48 ROYA (Rec: 04/13/21 09:52 PHOALICE [id number]) Electronically Signed By Hubert Ponce, PT 04/13/21 09:48 Rehab Re-assessment Subjective Subjective I don't have any numbness or tingling now and it doesn't wake me up at night now. Objective Objective Notes L SHLD AROM: Flex= 0-170 deg, ABD= 0-150 deg. MMT L SHLD: grossly 4+/5 throughout. Edema: minimal fibrotic edema noted throughout L UE with palpation this date. Assessment Progress Assessment Progressing as Expected Assessment Notes Much improved edema and mildly improved L shld pain. Continues to need strengthening and ROM of the L UE, but is overall better. Patient goals met ST,2,3,4,5,6,7,8 Goals Not Met LT,2,3,4,5,6,7,8,9 Revised Goals none Plan Plan Continue per initial POC. Frequency of Therapy 2 x/wk Duration of therapy 8 wks Time and Billing Re-Eval Time 15 Re-Eval Billing Units 1 PHYSICIAN CERTIFICATION: I certify the specified therapy services for Jeannie Lara are required, authorized, and reviewed every 30 days.
--- NOTE | 2021-05-14 10:08 | HMH.RHREAS ---
Rehab Reassessment Rehab OP Re-assessment Start: 04/13/21 09:42 Freq: Status: Active Protocol: Document 05/14/21 10:04 ROYA (Rec: 05/14/21 10:08 ROYA [id number]) Electronically Signed By Hubert Ponce, PT 05/14/21 10:04 Rehab Re-assessment Subjective Subjective Pt reports slight increase in intermittent tingling throughout the L UE. Objective Objective Notes Edema: Mild increase in palpable fibrotic edema this date. Tenderness: No tenderness to palpation noted in the L UE this date. Assessment Progress Assessment Progressing as Expected Assessment Notes Pt has some increased edema at this time, but had to take some extended time between appointments due to skin irritation on her upper chest. Edema slightly increased currently, but remains decreased since initial evaluation. Patient goals met ST,2,3,4,5,6,7,8 Goals Not Met LT,2,3,4,5,6,7,8,9 Revised Goals none Plan Plan Continue per initial POC. Frequency of Therapy 2 x/wk Duration of therapy 8 wks Time and Billing Re-Eval Time 15 Re-Eval Billing Units 1 PHYSICIAN CERTIFICATION: I certify the specified therapy services for Jeannie Lara are required, authorized, and reviewed every 30 days.
== END 2021-06-09 10:00 | disposition home or self-care (01) ==
LOC: PT 09:00
PROVIDERS: PCP Physician Assistant; Visit Provider Orthopaedic Surgery
DX: M25.512 Pain in left shoulder (principal); M25.412 Effusion, left shoulder
CPT/HCPCS: 97110; 97140; 97163; 97164

== ENCOUNTER → 2021-09-17 10:32 | Outpatient (CLI) | payer MEDICAID, SELFPAY ==
[2021-09-17 10:56] LABS: Basophils # 0.2 K/mm3 (0-0.2); Basophils % 1.5 % (0.1-2.0); Eosinophils # 0.1 K/mm3 (0.0-0.4); Eosinophils % 0.5 % (0.1-12.0); Hemoglobin 13.7 g/dL (12.2-16.2); Lymphocytes # 2.7 K/mm3 (0.7-4.5); Lymphocytes % 27.7 % (10-50); Mean Corpuscular HGB Conc 31.8 g/dL (31.8-35.4); Mean Corpuscular Hemoglobin 29.9 pg (27.0-31.2); Mean Corpuscular Volume 94.2 fl (81-99); Mean Platelet Volume 9.5 fl (7.4-10.4); Monocytes # 0.5 K/mm3 (0.1-1.0); Monocytes % 5.2 % (1.7-9.3); Neutrophils # 6.4 K/mm3 (1.8-7.8); Neutrophils % 65.1 % (37.0-80.0); Platelet Count 281 K/mm3 (142-424); Red Blood Count 4.56 M/mm3 (4.20-5.40); Red Cell Distribution Width 13.1 % (11.5-17.5); White Blood Count 9.9 K/mm3 (4.8-10.8)
[2021-09-17 11:51] LABS: Alanine Aminotransferase 19 U/L (12-78); Albumin Level 3.7 g/dl (3.5-5.0); Albumin/Globulin Ratio 1.2 (1.1-1.8); Alkaline Phosphatase 81 U/L (38-126); Anion Gap 7.8 mEq/L (5-15); Aspartate Amino Transferase 31 U/L (14-36); Blood Urea Nitrogen 13 mg/dl (7-17); Calcium 9.5 mg/dl (8.4-10.2); Carbon Dioxide 34 mmol/L (22.0-30.0); Chloride 101 mmol/L (98-107); Estimated Glomerular Filt Rate 64 ml/min (>60); GFR (African American) 78 ML/MIN (>60); Globulin 3.2 g/dL (1.3-3.2); Glucose 85 mg/dl (74-100); Potassium 4.8 mmoL/L (3.5-5.1); Sodium 138 mmol/L (136-145); Total Protein,Serum 6.9 g/dl (6.3-8.2)
[2021-09-17 11:52] LABS: Bilirubin,Total 0.1 mg/dl (0.2-1.3)
== END ==
PROVIDERS: PCP Physician Assistant; Visit Provider Internal Medicine Medical Oncology
DX: C85.90 Non-Hodgkin lymphoma, unspecified, unspecified site (principal)
CPT/HCPCS: 36415; 80053; 85025

== ENCOUNTER 2021-12-30 09:00 | Outpatient (RCR) | payer MEDICAID, SELFPAY ==
--- NOTE | 2021-10-21 13:31 | HMH.PTOPWND ---
Rehab Outpt Wound Evaluation Rehab OP Wound Evaluation Start: 10/21/21 13:26 Freq: Status: Active Protocol: Document 10/21/21 13:27 ROYA (Rec: 10/21/21 13:31 PHOALICE [id number]) Electronically Signed By Hubert Ponce, PT 10/21/21 13:27 Subjective/History History History Pt is 56 yowf who presents with c/o L UE worsening edema x ~ 2-3 mos. She has several year hx of L UE lymphedema after multiple breast bx without malignancy noted. She reports L shld continues with possible partial thickness tear of SUP/INF. She reports difficulty with ADLs using the L UE due to increased feelings of heaviness and pain . She also reports intermittent numbness/tingling in the L hand, worse at night . She also has hx of R neck LN resection, 3 area of squamous cell carcinoma removed from her skin, and is being followed by oncology. Subjective Subjective Currently pain 3/10, at worst 5/10. No tenderness to palpation noted at this time. Fibrotic edema throughout L upper arm and axilla noted. Lymphedema Eval Classification of Lymphedema Secondary Lymphedema Yes Stemmer's sign Stemmer's Sign no Stage of Lymphedema Lymphedema stages Stage II (Pitting edema, increased fibrosis w/ decreased pitting) Skin Changes Dry Skin Yes Skin Folds Yes Redness Yes Other Changes Yes Pain Scale Pain Scale (0-10) 5 Affected Extremities Areas Affected by Lymphedema/Edema Left Upper Extremity,Left Breast,Left Axilla Manual Lymphatic Drainage Treatment Area MLD Treatment Area Left Upper Extremity,Left Breast,Left Axilla Wound Problems/Impairments Impairments Problems/Impairmments Impaired Strength,Impaired Endurance,Impaired Lifting, Impaired Recreational Activities,Increased Edema, Lymphedema Present,Subjective C/O Pain,I
--- NOTE | 2021-11-17 09:38 | HMH.RHREAS ---
Rehab Reassessment Rehab OP Re-assessment Start: 11/17/21 09:32 Freq: Status: Active Protocol: Document 11/17/21 09:34 ROYA (Rec: 11/17/21 09:38 PHOALICE [id number]) E-signed By Hubert Ponce, PT Rehab Re-assessment Subjective Subjective Pt reports she feels much better with L UE edema. Pain at worst 2/10 now. Objective Objective Notes L UE: Fibrotic edema has dissipated. L upper arm and axilla edema 'doughy' consistency. No ridging noted under the L breast this date. Assessment Progress Assessment Progressing as Expected Assessment Notes Pt has shown significant improveemnts in L UE and axilla edema and considerable decrease in pain overall. She presents with less tightness and fullness throughout the L breast as well. Continues to need further edema reduction to reach baseline. Patient goals met ST,2,3,4 Goals Not Met LT,2,3,4,5,6 Revised Goals none Plan Plan Continue per initial POC. Frequency of Therapy 2 x/wk Duration of therapy 4 wks Time and Billing Re-Eval Time 14 Re-Eval Billing Units 1 PHYSICIAN CERTIFICATION: I certify the specified therapy services for Jeannie Lara are required, authorized, and reviewed every 30 days.
--- NOTE | 2021-12-16 14:39 | HMH.RHREAS ---
Rehab Reassessment Rehab OP Re-assessment Start: 11/17/21 09:32 Freq: Status: Active Protocol: Document 12/16/21 14:36 ROYA (Rec: 12/16/21 14:38 PHORDIONNE [id number]) E-signed By Hubert Ponce, PT Rehab Re-assessment Subjective Subjective Pt presents with no c/o pain or tenderness today. L UE feels much better overall. Objective Objective Notes L UE: Fibrotic edema has dissipated. L upper arm and axilla edema mildly 'doughy' consistency. Total circumferential measurement of L UE -18.7 cm since initial eval. Assessment Progress Assessment Progressing as Expected Assessment Notes Pt has continued to show progress with decreasing edema throughout the L UE. Much less fibrosis, but mild doughy edema remains. Minimal discomfort now, but L SHLD RCT continues to cause discomfort at times. Patient goals met ST,2,3,4 Goals Not Met LT,2,3,4,5,6 Revised Goals none Plan Plan Continue per initial POC. Frequency of Therapy 1 x/wk Duration of therapy 4 wks Time and Billing Re-Eval Time 14 Re-Eval Billing Units 1 PHYSICIAN CERTIFICATION: I certify the specified therapy services for Jeannie Lara are required, authorized, and reviewed every 30 days.
== END 2021-12-30 10:00 | disposition home or self-care (01) ==
LOC: PT 09:00
PROVIDERS: Visit Provider Nurse Practitioner Family
DX: I89.0 Lymphedema, not elsewhere classified (principal)
CPT/HCPCS: 97140; 97162; 97164

== ENCOUNTER → 2022-02-19 09:56 | Outpatient (CLI) | payer MEDICAID, SELFPAY ==
--- NOTE | 2022-02-19 10:05 | XR_ITS ---
FINAL REPORT CLINICAL HISTORY: lt shoulder pain COMPARISON: 02/20/2021 FINDINGS: Left shoulder Three views were obtained. There is no acute fracture or dislocation. There is mild AC joint and glenohumeral joint degenerative change. No significant change from prior. No soft tissue abnormality is identified. IMPRESSION: Mild degenerative changes. Reviewed, Interpreted and Dictated by Madi Toth III, MD Transcribed by Julianna Webber Authenticated and [facility]
== END ==
PROVIDERS: PCP Physician Assistant; Visit Provider Orthopaedic Surgery
DX: M25.512 Pain in left shoulder (principal)
CPT/HCPCS: 73030

== ENCOUNTER 2022-02-19 11:44 | Outpatient (RCR) | payer MEDICAID, SELFPAY | END 2022-02-19 12:30 | disposition home or self-care (01) | LOC: PT 11:44 | PROVIDERS: Visit Provider Orthopaedic Surgery | DX: M25.561 Pain in right knee (principal); S80.911A Unspecified superficial injury of right knee, initial encounter | CPT/HCPCS: 97760 ==

== ENCOUNTER → 2022-03-31 10:00 | Outpatient (CLI) | payer MEDICAID, SELFPAY ==
[2022-03-31 15:48] LABS: Amphetamine/Metha Screen,Urine Negative ng/ml (<1000)
[2022-03-31 15:49] LABS: Barbiturates Screen,Urine Negative ng/ml (<200)
[2022-03-31 15:50] LABS: Benzodiazepines Screen,Urine Negative ng/ml (<200)
[2022-03-31 15:51] LABS: Cannabinoid Screen,Urine Positive ng/ml (<50); Cocaine Screen,Urine Negative ng/ml (<300)
[2022-03-31 15:52] LABS: Opiate Screen,Urine Positive ng/ml (<300)
[2022-03-31 15:53] LABS: Phencyclidine Screen,Urine Negative ng/ml (<25)
[2022-03-31 16:25] LABS: Methadone Screen,Urine Negative ng/ml (<300)
== END ==
PROVIDERS: PCP Physician Assistant; Visit Provider Physician Assistant
DX: G89.4 Chronic pain syndrome (principal)
CPT/HCPCS: 80305

== ENCOUNTER → 2022-04-08 10:00 | Outpatient (CLI) | payer MEDICAID, SELFPAY ==
[2022-04-08 10:31] LABS: Basophils # 0.1 K/mm3 (0-0.2); Basophils % 1.3 % (0.1-2.0); Eosinophils # 0.1 K/mm3 (0.0-0.4); Eosinophils % 0.9 % (0.1-12.0); Hemoglobin 14.4 g/dL (12.2-16.2); Lymphocytes # 2.1 K/mm3 (0.7-4.5); Lymphocytes % 28.3 % (10-50); Mean Corpuscular HGB Conc 33.4 g/dL (31.8-35.4); Mean Corpuscular Volume 92.7 fl (81-99); Mean Platelet Volume 9.1 fl (7.4-10.4); Monocytes # 0.4 K/mm3 (0.1-1.0); Monocytes % 5.2 % (1.7-9.3); Neutrophils # 4.9 K/mm3 (1.8-7.8); Neutrophils % 64.2 % (37.0-80.0); Platelet Count 298 K/mm3 (142-424); Red Blood Count 4.64 M/mm3 (4.20-5.40); Red Cell Distribution Width 13.4 % (11.5-17.5); White Blood Count 7.6 K/mm3 (4.8-10.8)
[2022-04-08 11:22] LABS: Alanine Aminotransferase 21 U/L (12-78); Albumin Level 4.4 g/dl (3.5-5.0); Albumin/Globulin Ratio 1.3 (1.1-1.8); Alkaline Phosphatase 80 U/L (38-126); Anion Gap 10.4 mEq/L (5-15); Aspartate Amino Transferase 30 U/L (14-36); Bilirubin,Total 0.4 mg/dl (0.2-1.3); Blood Urea Nitrogen 12 mg/dl (7-17); Calcium 9.2 mg/dl (8.4-10.2); Carbon Dioxide 29 mmol/L (22.0-30.0); Chloride 106 mmol/L (98-107); Estimated Glomerular Filt Rate 64 ml/min (>60); GFR (African American) 78 ML/MIN (>60); Globulin 3.3 g/dL (1.3-3.2); Glucose 88 mg/dl (74-100); Potassium 4.4 mmoL/L (3.5-5.1); Sodium 141 mmol/L (136-145); Total Protein,Serum 7.7 g/dl (6.3-8.2)
== END ==
PROVIDERS: PCP Physician Assistant; Visit Provider Internal Medicine Medical Oncology
DX: C85.90 Non-Hodgkin lymphoma, unspecified, unspecified site (principal)
CPT/HCPCS: 36415; 80053; 85025

== ENCOUNTER 2022-04-30 07:59 | Emergency (ER) | payer MEDICAID, SELFPAY ==
[2022-04-30 08:35] VITALS: BP 120/82; PULSE 91; RESP 19; TEMP 37.2; O2SAT 96; BMI 30.1
--- NOTE | 2022-04-30 08:59 | EXP.UTC ---
Discharge Plan Disposition Patient Disposition: Home, Self-Care Condition: Good Prescriptions Prescriptions: No Action Ustell 120-0.12 mg capsule 1 cap PO TID PRN (Reason: bladder) Elmiron 100 mg capsule 100 mg PO BID metoprolol succinate 100 mg tablet extended release 24 hr 100 mg PO DAILY hydroxyzine pamoate [Vistaril] 25 mg capsule 25 mg PO ONCE Qty: 90 3RF alendronate 70 mg tablet 70 mg PO WEEKLY Qty: 9 4RF Rx Instructions: Take 1 tablet PO once weekly calcium carbonate-vitamin D3 [Calcium with Vitamin D] 600 mg-10 mcg (400 unit) tablet 1 tab PO DAILY Qty: 90 3RF ergocalciferol (vitamin D2) [Vitamin D2] 1,250 mcg (50,000 unit) capsule See Rx Instructions .ROUTE .COMPLEX Qty: 5 0RF Dose Instruction: TAKE 1 CAPSULE BY MOUTH ONCE A WEEK Rx Instructions: TAKE 1 CAPSULE BY MOUTH ONCE A WEEK latanoprost 0.005 % drops 1 drp OPHTHALMIC DAILY Qty: 3 3RF cholecalciferol (vitamin D3) 25 mcg (1,000 unit) tablet See Rx Instructions .ROUTE .COMPLEX Qty: 30 0RF Dose Instruction: TAKE 1 TABLET BY MOUTH DAILY Rx Instructions: TAKE 1 TABLET BY MOUTH DAILY clonazepam 1 mg tablet 1 mg PO TID Qty: 90 1RF hydrocodone-acetaminophen 10-325 mg tablet 1 tab PO Q8H PRN (Reason: pain) Qty: 90 0RF cyclobenzaprine 10 mg tablet See Rx Instructions .ROUTE .COMPLEX Qty: 90 0RF Dose Instruction: TAKE 1 TABLET BY MOUTH THREE TIMES DAILY Rx Instructions: TAKE 1 TABLET BY MOUTH THREE TIMES DAILY furosemide 40 mg tablet See Rx Instructions .ROUTE .COMPLEX Qty: 90 0RF Dose Instruction: TAKE 1 TABLET BY MOUTH DAILY NEEDED FOR EDEMA Rx Instructions: TAKE 1 TABLET BY MOUTH DAILY NEEDED FOR EDEMA doxycycline hyclate 100 mg tablet 100 mg PO BID Qty: 20 0RF prednisone 20 mg tablet 20 mg PO BID Qty: 10 0RF Rx Instructions: administer with food or milk Referrals Follow up/Referrals: Tatianna Howard PA [Primary Care Provider] - See instructions Activity Restrictions/Add. Instructions Additional Instructions/Restrictions: *Monitor Temp, Over the counter Motrin or Tylenol as directed/as needed Tylenol every 4 hours and Motrin every 6 hours (as long as your family doctor has told you that you can take it) for fever or pain. and straight to ER if unable to lower temp less than 101.0 after medication given *Warm salt water gargles may help to soothe the throat *Throat Lozenges? *Warm fluids like tea with honey may help to soothe the throat? *Sleep elevated *Humidifier/Vaporizer Follow up IMMEDIATELY for new or worsening symptoms or no Noticeable improvement over the next 48-72 hours. 911 for difficulty breathing or swallowing You were tested for today for Upper Respiratory Panel with COVID19 your test result should be back in the next 24-48 hours, you may Check your Results on the [facility] Portal Clinical Impressions Clinical Impression: Viral syndrome Stand Alone Forms Stand Alone Forms: Work/School Release Instructions Patient Instructions: DI for Fever (Symptom) -- Adult, DI for Viral Syndrome Discharge ED Provider: Roselyn Carlson [facility] [place] General Stated complaint: wheezing,congested,cough,fever Mode of Arrival: Ambulatory Source of Information: Patient Limitations: No Limitations Time Seen by Provider: 04/30/22 09:00 Description of Symptoms (Recalled from Triage Doc. by RN): PATIENT STATES SHE JUST COMPLETED PREDNISONE AND 10 DAYS OF ANTIBIOTICS AND FEELS LIKE SHE IS NOT GETTING WELL. C/O FEVER THIS MORNING HEENT Symptoms (Recalled from RN notes): No Resp Symptoms (Recalled from RN notes): Yes Skin Symptoms (Recalled from RN notes): No MS Symptoms (Recalled from RN notes): No Functional Status (Recalled from RN notes): WNL History of Present Illness Provider Complaint: Patient states that she has been sick for almost 2 weeks State that it started
--- NOTE | 2022-04-30 09:05 | XR_ITS ---
FINAL REPORT CLINICAL HISTORY: CONGESTION, wheezing, soa, fever, nausea COMPARISON: 12/25/2019 FINDINGS: PA and lateral views of the chest were obtained. The cardiac and mediastinal silhouettes are within normal limits. The lungs are clear. Posterior left pleural thickening is unchanged. There is no pleural effusion or pneumothorax. No acute osseous abnormality is identified. IMPRESSION: No radiographic evidence of acute cardiac or pulmonary process. Reviewed, Interpreted and Dictated by Traci Alvarado MD Transcribed by Nyasia Gillespie Authenticated and [facility]
[2022-04-30 09:27] LABS: UTC Influenza A Antigen Negative (Negative); UTC Influenza B Antigen Negative (Negative)
[2022-04-30 09:42] VITALS: BP 120/82; PULSE 91; RESP 19; TEMP 37.2; O2SAT 96
== END 2022-04-30 10:12 | disposition home or self-care (01) ==
LOC: ER 08:32 → UTC 08:33
PROVIDERS: Emergency Provider Nurse Practitioner; PCP Physician Assistant
DX: B34.9 Viral infection, unspecified (principal); R06.2 Wheezing; R09.89 Other specified symptoms and signs involving the circulatory and respiratory systems; R05.9 Cough, unspecified; R50.9 Fever, unspecified
CPT/HCPCS: 71046; 87804; 99212; 99213; C9803; G0463; U0003; U0005

== ENCOUNTER → 2022-06-02 15:26 | Outpatient (CLI) | payer MEDICAID, SELFPAY ==
[2022-06-02 14:54] LABS: Basophils # 0.1 K/mm3 (0-0.2); Eosinophils % 0.2 % (0.1-12.0); Hematocrit 46.4 % (37.0-47.0); Hemoglobin 15.5 g/dL (12.2-16.2); Lymphocytes # 1.7 K/mm3 (0.7-4.5); Lymphocytes % 28.9 % (10-50); Mean Corpuscular HGB Conc 33.3 g/dL (31.8-35.4); Mean Corpuscular Hemoglobin 30.3 pg (27.0-31.2); Mean Platelet Volume 11.1 fl (7.4-10.4); Monocytes # 0.6 K/mm3 (0.1-1.0); Monocytes % 10.1 % (1.7-9.3); Neutrophils # 3.5 K/mm3 (1.8-7.8); Neutrophils % 59.7 % (37.0-80.0); Platelet Count 181 K/mm3 (142-424); Red Cell Distribution Width 13.6 % (11.5-17.5); White Blood Count 5.9 K/mm3 (4.8-10.8)
[2022-06-02 15:04] LABS: Alanine Aminotransferase 28 U/L (12-78); Albumin Level 4.3 g/dl (3.5-5.0); Albumin/Globulin Ratio 1.3 (1.1-1.8); Alkaline Phosphatase 79 U/L (38-126); Anion Gap 11.8 mEq/L (5-15); Aspartate Amino Transferase 45 U/L (14-36); Bilirubin,Total 0.5 mg/dl (0.2-1.3); Blood Urea Nitrogen 15 mg/dl (7-17); Calcium 8.9 mg/dl (8.4-10.2); Carbon Dioxide 32 mmol/L (22.0-30.0); Chloride 97 mmol/L (98-107); Estimated Glomerular Filt Rate 64 ml/min (>60); GFR (African American) 78 ML/MIN (>60); Globulin 3.3 g/dL (1.3-3.2); Glucose 109 mg/dl (74-100); Potassium 3.8 mmoL/L (3.5-5.1); Sodium 137 mmol/L (136-145); Total Protein,Serum 7.6 g/dl (6.3-8.2)
[2022-06-02 15:32] LABS: Thyroid Stimulating Hormone 2.48 uIU/mL (0.465-4.68)
[2022-06-04 16:00] LABS: EBV Ab VCA, IgM <36.0 U/mL (0.0-35.9)
== END ==
PROVIDERS: PCP Nurse Practitioner Family; Visit Provider Nurse Practitioner Family
DX: R53.83 Other fatigue (principal); R06.02 Shortness of breath; R05.9 Cough, unspecified; R53.1 Weakness; C82.90 Follicular lymphoma, unspecified, unspecified site; B96.29 Other Escherichia coli [E. coli] as the cause of diseases classified elsewhere
CPT/HCPCS: 80053; 84443; 85025; 86664; 86665; 87086; 87088; 87186

== ENCOUNTER → 2022-06-29 14:44 | Outpatient (CLI) | payer MEDICAID, SELFPAY ==
--- NOTE | 2022-06-29 14:44 | CT_ITS ---
FINAL REPORT TECHNIQUE: Axial images were obtained from the lung apex to the mid abdomen by computed tomography. This study was performed with techniques to keep radiation doses as low as reasonably achievable (ALARA). Individualized dose reduction techniques using automated exposure control or adjustment of mA and/or kV according to the patient's size were employed. CLINICAL HISTORY: lung cancer screening, former smoker, 1.5ppd, quit 28 years ago FINDINGS: CHEST CT LOW DOSE CTDI vol (mGy): 2.90 DLP (mGy-cm): 110.46 There is moderate coronary artery calcification There is no axillary adenopathy. There is no hilar or mediastinal adenopathy. The heart is normal in size. There is no pericardial or pleural effusion. Lung window images demonstrate no suspicious infiltrate or nodule. There is mild emphysema and mild scarring. There is a small left posterior diaphragmatic hernia containing fat. Several chronic left lateral rib fractures are identified. Limited images of the upper abdomen are unremarkable. IMPRESSION: Lung RADS category 1. Recommend 12 month follow-up low-dose chest CT. Reviewed, Interpreted and Dictated by Madi Toth III, MD Transcribed by Julianna Webber Authenticated and . [facility]
== END ==
PROVIDERS: PCP Nurse Practitioner Family; Visit Provider Nurse Practitioner Family
DX: Z87.891 Personal history of nicotine dependence (principal); Z12.2 Encounter for screening for malignant neoplasm of respiratory organs
CPT/HCPCS: 71271

== ENCOUNTER → 2022-07-21 09:42 | Outpatient (CLI) | payer MEDICAID, SELFPAY ==
[2022-07-21 17:26] LABS: Amphetamine/Metha Screen,Urine Negative ng/ml (<1000)
[2022-07-21 17:27] LABS: Barbiturates Screen,Urine Negative ng/ml (<200); Benzodiazepines Screen,Urine Negative ng/ml (<200)
[2022-07-21 17:28] LABS: Cannabinoid Screen,Urine Positive ng/ml (<50)
[2022-07-21 17:29] LABS: Cocaine Screen,Urine Negative ng/ml (<300)
[2022-07-21 17:30] LABS: Methadone Screen,Urine Negative ng/ml (<300); Opiate Screen,Urine Positive ng/ml (<300)
[2022-07-21 17:32] LABS: Phencyclidine Screen,Urine Negative ng/ml (<25)
== END ==
PROVIDERS: PCP Physician Assistant; Visit Provider Physician Assistant
DX: R30.0 Dysuria (principal); Z79.899 Other long term (current) drug therapy; B96.29 Other Escherichia coli [E. coli] as the cause of diseases classified elsewhere
CPT/HCPCS: 80305; 87086; 87088; 87186

== ENCOUNTER → 2022-08-02 09:46 | Outpatient (CLI) | payer MEDICAID, SELFPAY | PROVIDERS: PCP Physician Assistant; Visit Provider Physician Assistant | DX: R94.31 Abnormal electrocardiogram [ECG] [EKG] (principal); I25.10 Atherosclerotic heart disease of native coronary artery without angina pectoris; E78.5 Hyperlipidemia, unspecified; I48.0 Paroxysmal atrial fibrillation; I65.29 Occlusion and stenosis of unspecified carotid artery; R53.1 Weakness; R53.83 Other fatigue; Z87.891 Personal history of nicotine dependence | CPT/HCPCS: 93306 ==

== ENCOUNTER 2022-08-19 07:33 | Day surgery (SDC) | payer MEDICAID, SELFPAY ==
[2022-08-19] VITALS (13 sets, daily range): BP systolic 138–193; BP diastolic 66–97; PULSE 69–107; RESP 17–19; TEMP 36.8; O2SAT 92–98; BMI 30.4
--- NOTE | 2022-08-19 07:12 | IR_ITS ---
APPROVED REPORT Patient Location: Outpatient Travel Counselor: KENNETH Washington RT (R) PROCEDURES Left heart catheterization Left ventriculogram Selective coronary angiogram INDICATION Abnormal Myoview, Angina pectoris, Informed consent was obtained prior to the procedure. COMPLICATIONS None Estimated Blood Loss: Less than 10 mls TECHNIQUE One percent lidocaine used to anesthetize the right anterior aspect of the wrist. The right radial artery was accessed via the Seldinger technique. A 6 Chinese sheath was placed in the right radial artery. 150 mg magnesium sulfate, 800 mcg of nitroglycerin, 1mg Lidocaine and 5000 U Heparin were given through the arterial sheath. The papa catheter was also used to perform left heart catheterization, left ventriculogram and selective coronary angiogram. At the end of the procedure the sheath was removed good hemostasis was achieved using Traclet band, patient was transferred to the postop holding area in stable condition. ANGIOGRAPHIC RESULTS The left main artery Normal The left anterior descending artery Has proximal and mid vessel 20 to 30% stenosis. There is a large bifurcating first diagonal artery in which the superior branch has 10% luminal irregularities while the inferior branch which is still 2.25 mm in diameter has an eccentric proximal 40 to 50% stenosis The circumflex artery Small nondominant normal The right coronary artery Dominant with an ostial smooth 10 to 20% stenosis and distal 10% stenoses The PANG ventriculogram reveals Normal 65% The left ventricular end-diastolic pressure 10 mmHg IMPRESSION Moderate disease in a large bifurcating first diagonal artery as described above Normal ejection fraction Normal left ventricular end-diastolic pressure PLAN 1. Aggressive medical management 2. Risk factor modification 3. Goal LDL less than 55 to be achieved with high intensity statin 4. Maximize antianginal medications 5. Avoidance of tobacco products Electronically signed by : Maikel Galindo MD 08/19/2022 10:36:45
[2022-08-19 08:36] LABS: Basophils # 0.1 K/mm3 (0-0.2); Basophils % 0.5 % (0.1-2.0); Eosinophils # 0.1 K/mm3 (0.0-0.4); Eosinophils % 0.7 % (0.1-12.0); Hematocrit 43.9 % (37.0-47.0); Hemoglobin 14.5 g/dL (12.2-16.2); Lymphocytes # 2.4 K/mm3 (0.7-4.5); Mean Corpuscular Hemoglobin 30.1 pg (27.0-31.2); Mean Corpuscular Volume 91.3 fl (81-99); Mean Platelet Volume 8.9 fl (7.4-10.4); Monocytes # 0.5 K/mm3 (0.1-1.0); Monocytes % 4.3 % (1.7-9.3); Neutrophils % 74.4 % (37.0-80.0); Platelet Count 287 K/mm3 (142-424); Red Blood Count 4.81 M/mm3 (4.20-5.40); Red Cell Distribution Width 12.9 % (11.5-17.5); White Blood Count 12.1 K/mm3 (4.8-10.8)
[2022-08-19 08:40] LABS: Chloride 99 mmol/L (98-107); Potassium 4.7 mmoL/L (3.5-5.1); Sodium 142 mmol/L (136-145)
[2022-08-19 08:43] LABS: Anion Gap 10.7 mEq/L (5-15); Blood Urea Nitrogen 10 mg/dl (7-17); Calcium 9.5 mg/dl (8.4-10.2); Carbon Dioxide 37 mmol/L (22.0-30.0); Creatinine Clearance Estimated 88 mL/min (50-200); Estimated Glomerular Filt Rate 64 ml/min (>60); GFR (African American) 78 ML/MIN (>60); Glucose 102 mg/dl (74-100)
== END 2022-08-19 12:51 | disposition home or self-care (01) ==
PROVIDERS: PCP Physician Assistant; Visit Provider Internal Medicine
DX: I25.118 Atherosclerotic heart disease of native coronary artery with other forms of angina pectoris (principal); I48.0 Paroxysmal atrial fibrillation; E78.5 Hyperlipidemia, unspecified; I65.23 Occlusion and stenosis of bilateral carotid arteries; R93.1 Abnormal findings on diagnostic imaging of heart and coronary circulation; R94.31 Abnormal electrocardiogram [ECG] [EKG]; Z87.891 Personal history of nicotine dependence; Z79.899 Other long term (current) drug therapy
CPT/HCPCS: 80048; 85025; 93458; 99152; C1725; C1769; J1644; Q9967

== ENCOUNTER → 2022-09-08 09:35 | Outpatient (CLI) | payer MEDICAID, SELFPAY ==
[2022-09-08 10:48] LABS: Alanine Aminotransferase 22 U/L (12-78); Albumin Level 4.1 g/dl (3.5-5.0); Albumin/Globulin Ratio 1.2 (1.1-1.8); Alkaline Phosphatase 77 U/L (38-126); Anion Gap 14.5 mEq/L (5-15); Aspartate Amino Transferase 35 U/L (14-36); Bilirubin,Total 0.4 mg/dl (0.2-1.3); Blood Urea Nitrogen 9 mg/dl (7-17); Calcium 9.3 mg/dl (8.4-10.2); Carbon Dioxide 31 mmol/L (22.0-30.0); Chloride 100 mmol/L (98-107); Estimated Glomerular Filt Rate 73 ml/min (>60); GFR (African American) 89 ML/MIN (>60); Globulin 3.4 g/dL (1.3-3.2); Glucose 88 mg/dl (74-100); Potassium 4.5 mmoL/L (3.5-5.1); Sodium 141 mmol/L (136-145); Total Protein,Serum 7.5 g/dl (6.3-8.2)
[2022-09-09 18:13] LABS: Basophils # 0.1 K/mm3 (0-0.2); Basophils % 0.8 % (0.1-2.0); Eosinophils # 0.1 K/mm3 (0.0-0.4); Hematocrit 46.9 % (37.0-47.0); Hemoglobin 14.2 g/dL (12.2-16.2); Lymphocytes # 2.2 K/mm3 (0.7-4.5); Lymphocytes % 25.6 % (10-50); Mean Corpuscular HGB Conc 30.2 g/dL (31.8-35.4); Mean Corpuscular Hemoglobin 29.7 pg (27.0-31.2); Mean Corpuscular Volume 98.5 fl (81-99); Mean Platelet Volume 14.1 fl (7.4-10.4); Monocytes # 0.6 K/mm3 (0.1-1.0); Monocytes % 6.9 % (1.7-9.3); Neutrophils # 5.7 K/mm3 (1.8-7.8); Neutrophils % 65.7 % (37.0-80.0); Platelet Count 269 K/mm3 (142-424); Red Blood Count 4.76 M/mm3 (4.20-5.40); Red Cell Distribution Width 13.1 % (11.5-17.5); White Blood Count 8.6 K/mm3 (4.8-10.8)
== END ==
PROVIDERS: PCP Physician Assistant; Visit Provider Internal Medicine Medical Oncology
DX: C85.91 Non-Hodgkin lymphoma, unspecified, lymph nodes of head, face, and neck (principal)
CPT/HCPCS: 36415; 80053; 85025

== ENCOUNTER → 2022-09-23 11:47 | Outpatient (CLI) | payer MEDICAID, SELFPAY | PROVIDERS: PCP Nurse Practitioner Family; Visit Provider Nurse Practitioner Family | DX: N39.0 Urinary tract infection, site not specified (principal) | CPT/HCPCS: 87086 ==

== ENCOUNTER 2022-12-15 10:00 | Outpatient (RCR) | payer MEDICAID, SELFPAY | END 2022-12-15 10:05 | disposition home or self-care (01) | LOC: OT 10:00 | PROVIDERS: PCP Physician Assistant; Visit Provider Physician Assistant | DX: M25.512 Pain in left shoulder (principal); M75.102 Unspecified rotator cuff tear or rupture of left shoulder, not specified as traumatic | CPT/HCPCS: 97016; 97110; 97140; 97165; 97530 ==

== ENCOUNTER → 2022-12-29 10:47 | Outpatient (CLI) | payer MEDICAID, SELFPAY | PROVIDERS: PCP Physician Assistant; Visit Provider Nurse Practitioner | DX: R00.2 Palpitations (principal) | CPT/HCPCS: 93270 ==

== ENCOUNTER → 2023-01-27 08:30 | Outpatient (CLI) | payer MEDICAID, SELFPAY ==
--- NOTE | 2023-01-27 08:32 | CA_ITS ---
APPROVED REPORT EXAM: Comprehensive 2D, Doppler, and color-flow Echocardiogram Ironer Hand: Melva Pugh RVT Ht: 5 ft 7 in Wt: 183lbs BSA: 1.95 BP: 100/65 mmHg Indications: CAD,A-FIB,PALPS,HTN,HLD,EXSMOKER 2D Dimensions LVOT 1.93 cm (M/F) 1.5-2.5 LA Volume 34.30 mL LA Volume Index 17.59 mL/m2 (M/F) 16-34 M-Mode Dimensions RVDd 2.17 cm (0.9-2.6) LA Diam 3.45 cm (1.9-4.0) LVDd 4.86 cm (3.5-5.7) Ao Diam 2.77 cm (2.0-3.7) LVDs 3.57 cm (3.5-5.7) IVSd 0.52 cm (0.6-1.1) PWd 0.60 cm (0.6-1.1) EF (Teich) 51.90% FS 26.50% EDV (Teich) 110.70 mL TAPSE 1.90 (<1.7) ESV (Teich) 53.30 mL LV Diastology E Decel Time 163.00 (160-240 msec) E/A Ratio 0.9 MED E' 7.20 (< 7 cm/sec) E'/MED E' Ratio 8.93 (>14) LAT E' 12.70 (<10 cm/sec) E/LAT E' Ratio 5.06 (>14) Aortic Valve LVOT Max 100.00 (70-110 cm/s) LVOT VTI 19.70 cm AoV Peak Anderson. 129.00 (50-130 cm/s) AO Peak GR. 6.60 mmHg AO Mean GR. 3.50 (<5 mmHg) AO VTI 22.58 (18-25 cm) TALON (VTI) 2.55 (2.5-4.5 cm2) Mitral Valve MV E Max Anderson. 64.00 (40-130 cm/s) MV A Velocity 75.00 (40-130 cm/s) E/A Ratio 0.86 MV Decel. Time 163.00 (160-240 ms) MV PHT 48.00 ms Pulmonary Valve PV Peak Velocity 63.00 (50-150 cm/s) Left Ventricle The left ventricle is normal size. The left ventricular systolic function is normal. The left ventricular ejection fraction is within the normal range. There is normal left ventricular wall thickness. There is normal LV segmental wall motion. The left ventricular diastolic function is normal. LVEF is 55%. Right Ventricle The right ventricle is normal size. The right ventricular systolic function is normal. Atria The left atrium size is normal. The right atrium size is normal. There is no Doppler evidence of interatrial shunt. Aortic Valve The aortic valve opens well. There is no aortic valvular stenosis. No aortic regurgitation is present. Mitral Valve The mitral valve is normal in structure. No evidence of mitral valve stenosis. Trace mitral regurgitation. Tricuspid Valve The tricuspid valve leaflets are thin and pliable. Trace tricuspid regurgitation. There is insufficient TR jet to estimate RVSP. Pulmonic Valve The pulmonary valve is normal in structure. Trace pulmonic regurgitation. Great Vessels The aortic root is normal in size. The ascending aorta is normal in size. IVC is normal in size and collapses >50% with inspiration. Pericardium There is no pericardial effusion. Other Information Study Quality: Fair Conclusion Normal biventricular systolic function. No significant valvular stenosis or regurgitation. Electronically signed by : Waleska Mendez MD 02/06/2023 21:27:34
== END ==
PROVIDERS: PCP Physician Assistant; Visit Provider Nurse Practitioner
DX: I35.0 Nonrheumatic aortic (valve) stenosis (principal); I51.9 Heart disease, unspecified; R00.2 Palpitations
CPT/HCPCS: 93306

== ENCOUNTER → 2023-02-08 13:26 | Outpatient (CLI) | payer MEDICAID, SELFPAY ==
--- NOTE | 2023-02-08 13:26 | MR_ITS ---
FINAL REPORT TECHNIQUE: Multiplanar MR without contrast CLINICAL HISTORY: .LEFT ARM PAIN. LIMITED ROM. SYMPTOMS XYEARS FINDINGS: Marrow signal: Unremarkable Glenohumeral joint: Moderate degenerative change. Small joint effusion. AC joint: No obvious impingement. Mild arthropathy. Rotator cuff: Partial tear of the distal supraspinatus tendon. Infraspinatus and subscapularis tendons are intact. Labrum: Advanced diffuse labral degeneration without discrete tear Biceps tendon: Intra-articular long head biceps tendon intact. IMPRESSION: Significant degenerative change. Advanced labral degeneration. Partial tear of the supraspinatus tendon. Reviewed, Interpreted and Dictated by Tian Jose MD Transcribed by Arnulfo Alvarez Authenticated and [facility]
== END ==
PROVIDERS: PCP Physician Assistant; Visit Provider Physician Assistant
DX: M25.512 Pain in left shoulder (principal)
CPT/HCPCS: 73221

== ENCOUNTER → 2023-02-15 10:48 | Outpatient (CLI) | payer MEDICAID, SELFPAY ==
[2023-02-15 11:30] LABS: Basophils % 0.5 % (0.1-2.0); Eosinophils # 0.1 K/mm3 (0.0-0.4); Eosinophils % 0.7 % (0.1-12.0); Hematocrit 41.2 % (37.0-47.0); Lymphocytes # 2.6 K/mm3 (0.7-4.5); Lymphocytes % 29.1 % (10-50); Mean Corpuscular Hemoglobin 31.7 pg (27.0-31.2); Mean Corpuscular Volume 93.3 fl (81-99); Mean Platelet Volume 8.9 fl (7.4-10.4); Monocytes # 0.4 K/mm3 (0.1-1.0); Monocytes % 4.9 % (1.7-9.3); Neutrophils # 5.7 K/mm3 (1.8-7.8); Neutrophils % 64.8 % (37.0-80.0); Platelet Count 274 K/mm3 (142-424); Red Blood Count 4.42 M/mm3 (4.20-5.40); Red Cell Distribution Width 12.5 % (11.5-17.5); White Blood Count 8.8 K/mm3 (4.8-10.8)
[2023-02-15 11:49] LABS: Alanine Aminotransferase 19 U/L (12-78); Albumin Level 4.3 g/dl (3.5-5.0); Albumin/Globulin Ratio 1.2 (1.1-1.8); Alkaline Phosphatase 73 U/L (38-126); Anion Gap 7.9 mEq/L (5-15); Aspartate Amino Transferase 31 U/L (14-36); Bilirubin,Total 0.3 mg/dl (0.2-1.3); Blood Urea Nitrogen 10 mg/dl (7-17); Calcium 9.4 mg/dl (8.4-10.2); Carbon Dioxide 33 mmol/L (22.0-30.0); Chloride 100 mmol/L (98-107); Estimated Glomerular Filt Rate 57 ml/min (>60); GFR (African American) 69 ML/MIN (>60); Globulin 3.5 g/dL (1.3-3.2); Glucose 93 mg/dl (74-100); Lactate Dehydrogenase 206 U/L (313-618); Potassium 4.9 mmoL/L (3.5-5.1); Sodium 136 mmol/L (136-145); Total Protein,Serum 7.8 g/dl (6.3-8.2)
== END ==
PROVIDERS: PCP Physician Assistant; Visit Provider Internal Medicine Medical Oncology
DX: C82.91 Follicular lymphoma, unspecified, lymph nodes of head, face, and neck (principal)
CPT/HCPCS: 36415; 80053; 83615; 85025

== ENCOUNTER → 2023-02-23 14:36 | Outpatient (CLI) | payer MEDICAID, SELFPAY ==
[2023-02-23 13:10] LABS: Amphetamine/Metha Screen,Urine Negative ng/ml (<1000)
[2023-02-23 13:13] LABS: Barbiturates Screen,Urine Negative ng/ml (<200)
[2023-02-23 13:14] LABS: Benzodiazepines Screen,Urine Negative ng/ml (<200)
[2023-02-23 13:15] LABS: Cannabinoid Screen,Urine Positive ng/ml (<50); Cocaine Screen,Urine Negative ng/ml (<300)
[2023-02-23 13:17] LABS: Methadone Screen,Urine Negative ng/ml (<300)
[2023-02-23 13:18] LABS: Opiate Screen,Urine Positive ng/ml (<300); Phencyclidine Screen,Urine Negative ng/ml (<25)
== END ==
PROVIDERS: PCP Physician Assistant; Visit Provider Physician Assistant
DX: M51.16 Intervertebral disc disorders with radiculopathy, lumbar region (principal)
CPT/HCPCS: 80305

== ENCOUNTER 2023-02-24 09:00 | Outpatient (RCR) | payer MEDICAID, SELFPAY ==
--- NOTE | 2022-11-25 11:26 | HMH.PTOPWND ---
Rehab Outpt Wound Evaluation Rehab OP Wound Evaluation Start: 11/25/22 11:07 Freq: Status: Active Protocol: Document 11/25/22 11:07 ROYA (Rec: 11/25/22 11:26 ROYA [id number]) E-signed By Hubert Ponce, PT Subjective/History History History This is the initial PT eval for Jeannie Lara, 57 yowf who presents with c/o increasing L UE lymphedema x ~ 3-4 mos this episode. She has chronic lymphedema of the L UE since L lumpectomy with LN removal due to breast cancer many years ago. She is well known to our clinic and typically responds positively to CDT treatment. She reports increasing L shld pain as well with hx of a chronic L RCT. She reports L shld pain is increased with increased swelling and ADL activities. Subjective Subjective Currently pain is 4/10 in L SHLD, at worst 7/10. Difficulty noted with ADLs ( specifically washing hair, reaching overhead, and lifting even light weights). Currently no pitting edema noted, but MODERATE fibrotic edema noted throughout L breast, axilla, and UE. New diagnosis of cancer in past 12 No months? Lymphedema Eval Classification of Lymphedema Secondary Lymphedema Yes: Breast CA with lumpectomy Stemmer's sign Stemmer's Sign no Stage of Lymphedema Lymphedema stages Stage II (Pitting edema, increased fibrosis w/ decreased pitting) Skin Changes Dry Skin Yes Other Changes Yes Pain Scale Pain Scale (0-10) 7 Affected Extremities Areas Affected by Lymphedema/Edema Left Upper Extremity,Left Breast,Left Axilla Manual Lymphatic Drainage Treatment Area MLD Treatment Area Left Upper Extremity,Left Breast,Left Axilla Wound Problems/Impairments Impairments Problems/Impairmments Impaired Range of Motion, Impaired Strength,Impaired Endurance,Impaired Lifting, Impaired Dressing,Impaired Shower/Bathing,Impaired Household Care,Impaired Recreational Activities, Impaired Desk/Computer Activities,Increased Edema, Lymphedema Present,Subjective C/O Pain,Impaired Self Care/ Self Management Prognosis Rehab Potential Good Clinical Impression Consistent with Diagnosis Yes Short Term Goals Number of Weeks 2 Decrease Lymphedema Yes: MILD fibrotic edema L UE Decrease Subjective C/O Pain Yes: 5/10 at worst Patient to Understand Lymphedema Yes Treatment and Exercises Decrease Girth Measurments by (cm) Yes: L UE total by 5 cm Scrap Wheeler Goals Number of Weeks 4 Improve Ability to Shower/Bathe Self Yes: Hair washing without pain Decrease Lymphedema Yes: Minimal L UE, Axilla, and Breast fibrotic edema. Decrease Subjective C/O Pain Yes: 3/10 at worst Patient to be Ind w/ HEP Yes Patient to Adhere Lymphedema Precautions Yes Decrease Girth Measurments by (cm) Yes: L UE total by 20 cm Outpatient Therapy Plan of Care Treatment Plan May Include Therapeutic Exercise Including Home Yes Exercise Program Manual Therapy Techniques Yes Neuromuscular Re-education Yes Therapeutic Activities to Return to Yes Previous Functional/Work Level ADL/Self Care Education Yes Orthotics/Bracing/Splinting Yes Vasopneumatic Compression Pump Yes Manual Lymphatic Drainage Yes Eval/Re-Eval Yes Frequency Times per week 2 Duration Number of Weeks 4 Addendums This patient is a candidate for social No or vocational rehab? Patient/Guardian verbally acknowledges Yes understanding of treatment program and consents to further treatment? Patient/Guardian verbally acknowledges Yes understanding of diagnosis, prognosis and goals for treatment? Eval Complexity PT Charges 71730 - High Complexity PHYSICIAN CERTIFICATION: I certify the specified therapy services for Jeannie Lara are required, authorized, and reviewed every 30 days.
--- NOTE | 2022-12-24 11:16 | HMH.RHREAS ---
Rehab Reassessment Rehab OP Re-assessment Start: 11/25/22 11:07 Freq: Status: Active Protocol: Document 12/24/22 11:12 PHOALICE (Rec: 12/24/22 11:16 PHORDIONNE [id number]) E-signed By Hubert Ponce, PT Rehab Re-assessment Subjective Subjective Pt reports less pain in the L shoulder with most activities. Continues to have difficulty washing her hair. Less edema overall per her report. Objective Objective Notes Circumferential measurements: L UE total is 225.4 cm which is -4.0 cm since IE. Moderate fibrotic edema remains throughout the L UE from the wrist proximally. Assessment Progress Assessment Progressing as Expected Assessment Notes Pt has shown overall improvement in L UE edema and overall activity level. She continues to need skilled intervention to return to prior level of function. Patient goals met ST,2,[address] LT,2,3,4,5,6 Plan Plan Continue per initial POC Frequency of Therapy 2 x/wk Duration of therapy 4 wks Time and Billing Re-Eval Time 13 Re-Eval Billing Units 1 PHYSICIAN CERTIFICATION: I certify the specified therapy services for Jeannie Lara are required, authorized, and reviewed every 30 days.
--- NOTE | 2023-01-26 14:15 | HMH.RHREAS ---
Rehab Reassessment Rehab OP Re-assessment Start: 11/25/22 11:07 Freq: Status: Active Protocol: Document 01/26/23 14:06 ROYA (Rec: 01/26/23 14:09 ROYA [id number]) E-signed By Hubert Ponce, PT Rehab Re-assessment Subjective Subjective Pt reports she feels much improved overall, but continues to have intermittent numbness in her L hand which is worse at night. Objective Objective Notes Circumferential measurements: L UE total is 220.1cm which is -9.3 cm since IE. Mild fibrotic edema remains throughout the L UE from the wrist proximally. Increased palpable edema noted in the L axilla and breast region. Assessment Progress Assessment Progressing as Expected Assessment Notes Pt has shown significant reduction of L UE edema overall and decreased discomfort with ADLs. She does continue to need skilled intervention to return to prior level of function. Patient goals met ST,2,3,4 Goals Not Met LT,2,3,4,5,6 Plan Plan Continue per initial POC Frequency of Therapy 2 x/wk Duration of therapy 4 wks Time and Billing Re-Eval Time 15 Re-Eval Billing Units 1 PHYSICIAN CERTIFICATION: I certify the specified therapy services for Jeannie Lara are required, authorized, and reviewed every 30 days.
== END 2023-02-24 10:20 | disposition home or self-care (01) ==
LOC: PT 09:00
PROVIDERS: Visit Provider Physician Assistant
DX: I89.0 Lymphedema, not elsewhere classified (principal)
CPT/HCPCS: 97140; 97163; 97164

== ENCOUNTER → 2023-03-01 09:52 | Outpatient (CLI) | payer MEDICAID, SELFPAY ==
--- NOTE | 2023-03-01 09:57 | CT_ITS ---
FINAL REPORT TECHNIQUE: Postcontrast axial images through the abdomen and pelvis were performed. This study was performed with techniques to keep radiation doses as low as reasonably achievable, (ALARA). Individualized dose reduction techniques using automated exposure control or adjustment of mA and/or kV according to the patient's size were employed. CLINICAL HISTORY: LYMPHOMA FINDINGS: Abdomen: There are calcified granulomas in the right lung base. There is a defect in the posterior right hemithorax measuring 3.3 cm with herniation of the fat. The liver is normal in size and attenuation. The gallbladder is present. There are calcified granulomas in the spleen. The adrenals are normal. The pancreas is unremarkable. The kidneys enhance appropriately. The aorta is normal in caliber. No free fluid or adenopathy is identified. No findings for mechanical bowel obstruction are identified. Pelvis: The appendix is is normal. The uterus is present and lies eccentric to the left. The urinary bladder is unremarkable. No free fluid, free air, abscess or adenopathy is identified. IMPRESSION: Right posterior diaphragmatic hernia with a 3.3 cm defect. Reviewed, Interpreted and Dictated by Juancarlos Krishna MD Transcribed by Arnulfo Alvarez Authenticated and [facility]
--- NOTE | 2023-03-01 09:57 | CT_ITS ---
FINAL REPORT TECHNIQUE: Thin section axial CT images with coronal reformats were obtained through the neck after the administration of IV contrast. This study was performed with techniques to keep radiation doses as low as reasonably achievable (ALARA). Individualized dose reduction techniques using automated exposure control or adjustment of mA and/or kV according to the patient''s size were employed. CLINICAL HISTORY: LYMPHOMA COMPARISON: July 28, 2020 FINDINGS: There are a few small scattered cervical lymph nodes that are either unchanged or improved from prior. There is no dominant mass. There is no fluid collection. Images of the lung apices are clear. IMPRESSION: Mild cervical adenopathy, stable or slightly improved. Reviewed, Interpreted and Dictated by Juancarlos Krishna MD Transcribed by Arnulfo Alvarez Authenticated and [facility]
== END ==
PROVIDERS: PCP Physician Assistant; Visit Provider Internal Medicine Medical Oncology
DX: C82.90 Follicular lymphoma, unspecified, unspecified site (principal)
CPT/HCPCS: 70491; 74177; Q9967

== ENCOUNTER 2023-05-31 10:28 | Outpatient (CLI) | payer MEDICAID, SELFPAY ==
[2023-05-31 11:05] LABS: Basophils # 0.1 K/mm3 (0-0.2); Eosinophils # 0.1 K/mm3 (0.0-0.4); Eosinophils % 0.5 % (0.1-12.0); Hemoglobin 13.1 g/dL (12.2-16.2); Lymphocytes % 27.6 % (10-50); Mean Corpuscular HGB Conc 33.6 g/dL (31.8-35.4); Mean Corpuscular Hemoglobin 32.1 pg (27.0-31.2); Mean Corpuscular Volume 95.6 fl (81-99); Mean Platelet Volume 9.2 fl (7.4-10.4); Monocytes # 0.5 K/mm3 (0.1-1.0); Monocytes % 4.6 % (1.7-9.3); Neutrophils # 7.2 K/mm3 (1.8-7.8); Neutrophils % 66.4 % (37.0-80.0); Platelet Count 308 K/mm3 (142-424); Red Blood Count 4.08 M/mm3 (4.20-5.40); Red Cell Distribution Width 13.9 % (11.5-17.5); White Blood Count 10.9 K/mm3 (4.8-10.8)
[2023-05-31 11:26] LABS: Chloride 99 mmol/L (98-107); Sodium 138 mmol/L (136-145)
[2023-05-31 11:27] LABS: Potassium 4.4 mmoL/L (3.5-5.1)
[2023-05-31 11:29] LABS: Alanine Aminotransferase 23 U/L (12-78); Albumin Level 4.1 g/dl (3.5-5.0); Albumin/Globulin Ratio 1.3 (1.1-1.8); Alkaline Phosphatase 71 U/L (38-126); Anion Gap 8.4 mEq/L (5-15); Aspartate Amino Transferase 34 U/L (14-36); Bilirubin,Total 0.4 mg/dl (0.2-1.3); Blood Urea Nitrogen 20 mg/dl (7-17); Calcium 9.6 mg/dl (8.4-10.2); Carbon Dioxide 35 mmol/L (22.0-30.0); Estimated Glomerular Filt Rate 46 ml/min (>60); GFR (African American) 56 ML/MIN (>60); Globulin 3.1 g/dL (1.3-3.2); Glucose 86 mg/dl (74-100); Total Protein,Serum 7.2 g/dl (6.3-8.2)
[2023-05-31 11:37] LABS: Lactate Dehydrogenase 216 U/L (313-618)
== END 2023-05-31 23:59 ==
LOC: LAB 10:29
PROVIDERS: PCP Physician Assistant; Visit Provider Internal Medicine Medical Oncology
DX: C82.90 Follicular lymphoma, unspecified, unspecified site (principal)
CPT/HCPCS: 36415; 80053; 83615; 85025

== ENCOUNTER 2023-06-08 05:00 | Emergency (ER) | payer MEDICAID, SELFPAY ==
[2023-06-08 05:02] VITALS: BP 156/100; PULSE 94; RESP 16; TEMP 37.1; O2SAT 100; BMI 28.9
--- NOTE | 2023-06-08 05:25 | ED_ITS ---
Discharge Plan Disposition Patient Disposition: Home, Self-Care Prescriptions Prescriptions: New clindamycin HCl 300 mg capsule 300 mg PO Q6H 7 Days Qty: 28 0RF No Action Ustell 120-0.12 mg capsule 1 cap PO TID PRN (Reason: bladder) Elmiron 100 mg capsule 100 mg PO BID hydroxyzine pamoate [Vistaril] 25 mg capsule 25 mg PO ONCE Qty: 90 0RF latanoprost 0.005 % drops ophthalmic (eye) fluticasone propionate [Flonase Allergy Relief] 50 mcg/actuation spray,suspension 1 spray intranasal QDAY 30 Days Qty: 9.9 0RF Rx Instructions: administer into each nostril alendronate 70 mg tablet See Rx Instructions .ROUTE .COMPLEX Qty: 8 3RF Dose Instruction: TAKE 1 TABLET BY MOUTH ONCE WEEKLY Rx Instructions: TAKE 1 TABLET BY MOUTH ONCE WEEKLY atorvastatin 20 mg tablet See Rx Instructions .ROUTE .COMPLEX Qty: 30 2RF Dose Instruction: TAKE 1 TABLET BY MOUTH DAILY Rx Instructions: TAKE 1 TABLET BY MOUTH DAILY aspirin 81 mg tablet,delayed release (DR/EC) See Rx Instructions .ROUTE .COMPLEX Qty: 30 5RF Dose Instruction: TAKE 1 TABLET BY MOUTH DAILY Rx Instructions: TAKE 1 TABLET BY MOUTH DAILY valsartan 40 mg tablet See Rx Instructions .ROUTE .COMPLEX Qty: 60 6RF Dose Instruction: TAKE 1 TABLET BY MOUTH TWICE DAILY Rx Instructions: TAKE 1 TABLET BY MOUTH TWICE DAILY cholecalciferol (vitamin D3) 25 mcg (1,000 unit) tablet See Rx Instructions .ROUTE .COMPLEX Qty: 30 0RF Dose Instruction: TAKE 1 TABLET BY MOUTH DAILY Rx Instructions: TAKE 1 TABLET BY MOUTH DAILY ergocalciferol (vitamin D2) [Vitamin D2] 1,250 mcg (50,000 unit) capsule See Rx Instructions .ROUTE .COMPLEX Qty: 14 3RF Rx Instructions: TAKE 1 CAPSULE BY MOUTH ONCE A WEEK calcium carbonate-vitamin D3 [Calcium with Vitamin D] 600 mg-10 mcg (400 unit) tablet 1 tab PO DAILY Qty: 90 3RF furosemide 40 mg tablet See Rx Instructions .ROUTE .COMPLEX Qty: 90 0RF Dose Instruction: TAKE 1 TABLET BY MOUTH DAILY NEEDED FOR EDEMA Rx Instructions: TAKE 1 TABLET BY MOUTH DAILY NEEDED FOR EDEMA clonazepam 1 mg tablet 1 mg PO TID Qty: 90 0RF cyclobenzaprine 10 mg tablet See Rx Instructions .ROUTE .COMPLEX Qty: 90 0RF Dose Instruction: TAKE 1 TABLET BY MOUTH THREE TIMES DAILY Rx Instructions: TAKE 1 TABLET BY MOUTH THREE TIMES DAILY hydrocodone-acetaminophen 10-325 mg tablet 1 tab PO Q8H PRN (Reason: pain) Qty: 90 0RF metoprolol succinate 100 mg tablet extended release 24 hr 100 mg PO DAILY Referrals Follow up/Referrals: Tatianna Howard PA [Primary Care Provider] - See instructions Activity Restrictions/Add. Instructions Additional Instructions/Restrictions: Please take clindamycin as prescribed. Please follow-up with your oncologist. Clinical Impressions Clinical Impression: Lymphadenopathy of right cervical region Discharge ED Provider: Rashard Grimes General Adult HPI General Chief complaint: PAIN Stated complaint: neckpain Tuesday-now,swelling r side neck,lymphoma Time Seen by Provider: 06/08/23 05:05 Mode of Arrival: Ambulatory Source of Information: Patient Limitations: No Limitations Description of Symptoms (Recalled from ER Triage Doc. by RN): Pt presents with pain and swelling in the right side of her neck since Tuesday. Pt has hx of lymphedema approx [address] Gonsalez last week for a routine check up and told all her bloodwork looked good. Pt denies any SOA or trouble swallowing. 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 She noticed it a few days ago. She feels like it is getting larger and is continuing more t kathleen. She denies any dental issues, denies any history of ear infections, denies any recent scratches or cuts. She reports no other lymphadenopathy anywhere else. She was seen by her oncologist last week and had blood work which she reports was all normal. She denies any fever at home. Related Data Home Medications Medication Instructions Recorded Confirmed methenamine 120 mg-methyl.blue-sod 1 cap PO TID PRN bladder 09/10/20 05/03/23 phos-p.salicy-hyosc 0.12 mg capsule (Ustell) pentosan polysulfate sodium 100 mg 100 mg PO BID . 02/25/21 05/03/23 capsule (Elmiron) metoprolol succinate 100 mg 100 mg PO DAILY . 08/19/22 05/03/23 tablet,extended release 24 hr latanoprost 0.005 % eye drops drp ophthalmic (eye) 04/25/23 05/03/23 Previous Rx's Medication Instructions Recorded alendronate 70 mg tablet See Rx Instructions .Route 08/20/22 .COMPLEX #8 tabs atorvastatin 20 mg tablet See Rx Instructions .Route 01/04/23 .COMPLEX #30 tabs hydroxyzine pamoate 25 mg capsule 25 mg PO ONCE . #90 caps 01/05/23 (Vistaril) aspirin 81 mg tablet,delayed See Rx Instructions .Route 02/07/23 release .COMPLEX #30 tabs valsartan 40 mg tablet See Rx Instructions .Route 02/07/23 .COMPLEX #60 tabs calcium carbonate 600 mg-vitamin 1 tab PO DAILY . #90 tabs 02/23/23 D3 10 mcg (400 unit) tablet (Calcium with Vitamin D) cholecalciferol (vitamin D3) 25 See Rx Instructions .Route 02/23/23 mcg (1,000 unit) tablet .COMPLEX #30 tabs ergocalciferol (vitamin D2) 1,250 See Rx Instructions .Route 02/23/23 mcg (50,000 unit) capsule (Vitamin .COMPLEX . #14 caps D2) furosemide 40 mg tablet See Rx Instructions .Route 04/04/23 .COMPLEX #90 tabs fluticasone propionate 50 1 spray intranasal QDAY 30 days 04/25/23 mcg/actuation nasal #9.9 grams spray,suspension (Flonase Allergy Relief) clonazepam 1 mg tablet 1 mg PO TID Anxiety #90 tabs 05/09/23 cyclobenzaprine 10 mg tablet See Rx Instructions .Route 05/23/23 .COMPLEX #90 tabs hydrocodone 10 mg-acetaminophen 1 tab PO Q8H PRN pain #90 tabs 05/26/23 325 mg tablet clindamycin HCl 300 mg capsule 300 mg PO Q6H 7 days #28 caps 06/08/23 Allergies Allergy/AdvReac Type Severity Reaction Status Date / Time Penicillins Allergy Intermediate I-RASH; Verified 05/31/23 11:09 JOINTS ACHE PFSH PFSH Disclaimer: The information contained in this section may have been updated after the patient was seen, as this information can be updated by other users. Medical History Tear of supraspinatus tendon LV dysfunction Abnormal echocardiogram Abnormal electrocardiogram [ECG] [EKG] Coronary artery disease Former smoker Paroxysmal A-fib Stenosis of carotid artery Rotator cuff strain Lymphoma This is follicular and is being followed by Oncology. Chronic pain DDD (degenerative disc disease), cervical Colon cancer screening Breast tumor Degenerative disc disease, cervical Degenerative disc disease, cervical Degenerative disc disease, lumbar Lymphedema of left upper extremity Jeannie has pain from this and the HC/APAP helps tremendously. Subarachnoid cyst She states she rarely has any problems with this. Follow at this point. She has seen neurosurgery. Pinched nerve in neck Surgical History History of cardiac catheterization History of bladder surgery History of lumpectomy of left breast Social History Smoking Status: Former smoker second hand exposure: No alcohol intake: never substance use type: denies use current occupational status: unemployed Travel in the last 8 weeks: None household members: spouse housing: house current occupational exposures/hazards: No caffeine: No ROS Obtained: Yes All systems reviewed & no additional complaints except as documented Physical Exam General General appearance: alert and in no apparent distress Head Head exam: atraumatic and normocephalic Eye Eye exam: Present normal appearance, PERRL and EOMI ENT ENT exam: Present normal oropharynx and normal external ear exam Neck Neck exam: Present normal inspection, full ROM and other (small tender firm immobile right cervical lymphadenopathy at the angle of the jaw just inferior to the ear) Chest Chest inspection: Present normal inspection and symmetric chest wall rise; Absent tenderness Respiratory Respiratory exam: Present normal lung sounds bilaterally; Absent respiratory distress Cardiovascular Cardiovascular exam: Present regular rate and normal rhythm Abdominal Exam Abdominal exam: Present soft; Absent distention, tenderness or guarding Extremities Exam Extremities exam: Present normal inspection; Absent edema or joint swelling Back Exam Back exam: Present normal inspection; Absent tenderness Neurological Exam Neurological exam: Present alert and oriented X3; Absent motor sensory deficit Psychiatric Psychiatric exam: Present normal affect and normal mood Skin Skin exam: Present warm, dry and normal color Lymphatic Lymphatic Findings: no adenopathy Medical Decision Making Medical Records Medical records reviewed: Yes I reviewed the patient's medical records. Jony Inquiry Pt receiving controlled substance: No Jony was queried for this patient: No Vital Signs: 06/08/23 05:02 06/08/23 05:30 06/08/23 05:54 Temperature 98.7 F 98.7 F Temperature Source Oral Oral Pulse Rate 87 92 H Pulse Rate [Left] 94 H Respiratory Rate 16 18 16 Blood Pressure 125/85 154/92 H Blood Pressure [Right Arm] 156/100 H Blood Pressure Mean 98 Blood Pressure Mean [Right Arm] 118 Blood Pressure Source Automatic Cuff Blood Pressure Source [Right Arm] Automatic Cuff Blood Pressure Position Sitting Blood Pressure Position [Right Arm] Sitting 02 Sat by Pulse Oximetry 100 99 Oxygen Delivery Method Room Air Room Air Room Air Lab Data Lab results reviewed: Yes I reviewed the patient's lab results. Orders (Tests/Meds): ED MEDICATIONS Discontinued Medications Generic Name Dose Route Start Last Admin Trade Name Freq PRN Reason Stop Dose Admin Clindamycin HCl 300 mg 06/08/23 05:36 06/08/23 05:45 Clindamycin 150mg Capsule PO 06/08/23 05:37 300 mg ONCE ONE Administration Medical Decision Narrative: 57-year-old female with history of follicular lymphoma diagnosed from cervical lymph node biopsy in 2019, as well as multiple other medical comorbidities, presents with tender right neck swelling.. History was obtained interactive discussion with patient, chart review. On arrival, patient is [afebrile, hemodynamically stable, satting appropriately, alert, oriented x4, GCS 15], moving all extremities spontaneously. Full physical exam performed and significant for small tender firm immobile right cervical lymphadenopathy at the angle of the jaw just inferior to the ear. No other evidence of infection on exam of the ear, oropharynx, skin, no other lymphadenopathy noted. Differential includes but is not limited to recurrence of follicular lymphoma, odontogenic infection, ear infection, and/soft tissue infection, lymphadenitis, thyroid pathology. Patient was given oral clindamycin for symptomatic management and correction of underlying abnormalities. I reviewed the patient's labs from within the last week, CBC with differential showed no significant abnormalities. We considered additional blood work today, but given she had blood work within the last week I do not think it was necessary at this time. Given patient's history of follicular lymphoma in this area, I am concerned that this could represent recurrence of disease. I communicated these concerns with patient and she will call and follow-up with Dr. Horn for further evaluation. In the meantime, patient was prescribed clindamycin for coverage of possible lymphadenitis (patient has a penicillin allergy). Patient was discharged in stable condition. Return precautions given. Procedures Risk/Benefits of Procedure(s) Were Explained: Yes Critical Care Critical Care Time Critical Care Time: No
[2023-06-08 05:30] VITALS: BP 125/85; PULSE 87; RESP 18; O2SAT 99
[2023-06-08] MEDS: CLINDAMYCIN 150MG CAPSULE 300 MG PO (05:45)
[2023-06-08 05:54] VITALS: BP 154/92; PULSE 92; RESP 16; TEMP 37.1; O2SAT 98
== END 2023-06-08 05:55 | disposition home or self-care (01) ==
PROVIDERS: Emergency Provider Emergency Medicine; PCP Physician Assistant
DX: R59.0 Localized enlarged lymph nodes (principal); I11.9 Hypertensive heart disease without heart failure; I48.0 Paroxysmal atrial fibrillation; I25.10 Atherosclerotic heart disease of native coronary artery without angina pectoris; I65.29 Occlusion and stenosis of unspecified carotid artery; Z87.891 Personal history of nicotine dependence
CPT/HCPCS: 99283

== ENCOUNTER 2023-06-14 14:02 | Outpatient (CLI) | payer MEDICAID, SELFPAY ==
--- NOTE | 2023-06-14 14:14 | CT_ITS ---
PROCEDURE INFORMATION: Exam: CT Neck With Contrast Exam date and time: 06/14/2023 2:41 PM Age: 57 years old Clinical indication: Mass, lump, or swelling in neck; Patient HX: States knot right sided neck; Additional info: Lymphoma TECHNIQUE: Imaging protocol: Computed tomography of the neck with contrast. Radiation optimization: All CT scans at this facility use at least one of these dose optimization techniques: automated exposure control; mA and/or kV adjustment per patient size (includes targeted exams where dose is matched to clinical indication); or iterative reconstruction. Contrast material: ISOVUE; Contrast volume: 75 ml; Contrast route: IV; COMPARISON: CT SOFT TISSUE NECK W CON 03/01/2023 11:14 AM FINDINGS: Paranasal sinuses: No air-fluid levels. Pharynx: Unremarkable. Larynx: Unremarkable. Prevertebral and retropharyngeal spaces: Unremarkable. Salivary glands: Subcentimeter focal fluid collection with peripheral hyperenhancement in the right parotid gland measuring 7 x 6 x 8 mm or 13 x 10 x 13 mm including the hyperenhancing peripheral rim of soft tissue. No evidence of product ductal dilatation or sialolith. The left parotid gland is unremarkable. Submandibular glands are not visualized. Thyroid: Unremarkable. Lymph nodes: Few conspicuous level 2 cervical lymph nodes noted. No pathologically enlarged lymph nodes by imaging criteria. Trachea: Unremarkable as visualized. Lungs: No emergent findings or suspicious mass/lesions in the visulized upper thorax. Bones/joints: No evidence of acute osseous abnormality. Soft tissues: Unremarkable. IMPRESSION: Subcentimeter focal fluid collection with peripheral hyperenhancement in the right parotid gland. Findings are suspicious for malignant lymph node with central necrosis. Soft tissue abscess is believed less likely given lack of surrounding soft tissue edema or reactive lymphadenopathy.
[2023-06-14] MEDS: IOPAMIDOL-370 (76%);100ML BOTTLE 75 ML IV (14:54)
[2023-06-14] MEDS: SODIUM CHLORIDE 0.9% 10ML SYR (RAD ONLY) 10 ML IV (14:54)
== END 2023-06-14 23:59 ==
LOC: RAD 14:03
PROVIDERS: PCP Physician Assistant; Visit Provider Internal Medicine Medical Oncology
DX: C85.90 Non-Hodgkin lymphoma, unspecified, unspecified site (principal)
CPT/HCPCS: 70491; Q9967

== ENCOUNTER 2023-06-17 09:41 | Emergency (ER) | payer MEDICAID, SELFPAY ==
[2023-06-17] VITALS (12 sets, daily range): BP systolic 122–151; BP diastolic 71–97; PULSE 83–114; RESP 15–20; TEMP 36.7–36.9; O2SAT 96–99; BMI 29.7
--- NOTE | 2023-06-17 10:08 | CT_ITS ---
FINAL REPORT CLINICAL HISTORY: hx lymphoma, neck mass COMPARISON: 06/29/2022 FINDINGS: Axial CT images of the chest were obtained with contrast. Coronal and sagittal reformatted images were also obtained. This study was performed with techniques to keep radiation doses as low as reasonably achievable, (ALARA). Individualized dose reduction techniques using automated exposure control or adjustment of mA and/or KV according to the patient's size were employed. There is no evidence of mediastinal or hilar mass or adenopathy. No axillary mass or adenopathy is identified. There are mild changes of emphysema present, as well as mild scarring. There is a calcified granuloma present in the right lung base. On lung window images, no pulmonary mass or dominant pulmonary nodule is identified. No localized pulmonary inflammatory process is identified. Limited images of the upper abdomen reveal no mass or localized inflammatory process. IMPRESSION: No mass or localized inflammatory process. Mild changes of emphysema and mild scarring. Reviewed, Interpreted and Dictated by Madi Toth III, MD Transcribed by Kaylan Rossi Authenticated and [facility]
--- NOTE | 2023-06-17 10:08 | CT_ITS ---
FINAL REPORT TECHNIQUE: Thin section axial CT images were obtained through the neck after intravenous contrast administration. Coronal and sagittal reformats were also obtained. This study was performed with techniques to keep radiation doses as low as reasonably achievable (ALARA). Individualized dose reduction techniques using automated exposure control or adjustment of mA and/or kV according to the patient's size were employed. CLINICAL HISTORY: worsening R neck mass and pain COMPARISON: 06/14/2023 FINDINGS: There is a 12 x 8 mm low-attenuation fluid collection or mass present in the right parotid, that measured 8 mm in greatest diameter on June 13. This is worrisome for an abscess or suppurative node, with neoplasm not excluded. There is new and worsening soft tissue stranding present in the right side of the neck, as well as increased stranding surrounding the right platysma and the right sternocleidomastoid muscle, consistent with worsening inflammatory change/cellulitis. Again noted are several enlarged right internal jugular nodes, favor reactive over neoplastic. No new focal masses are identified. The oropharynx, nasopharynx, and hypopharynx appear unremarkable. IMPRESSION: Enlargement of the low-attenuation fluid collection or mass in the right parotid gland since the prior CT of June 13, worrisome for an enlarging abscess or suppurative node, although neoplasm is not excluded. There is new and worsening soft tissue stranding in the right side of the neck involving the right platysma and the right sternocleidomastoid, also consistent with worsening inflammatory process/cellulitis. Several enlarged right internal jugular chain nodes, favor reactive over neoplastic. Reviewed, Interpreted and Dictated by Madi Toth III, MD Transcribed by Kaylan Rossi Authenticated and [facility]
--- NOTE | 2023-06-17 10:10 | ED_ITS ---
Discharge Plan Disposition Patient Disposition: Home, Self-Care Chief Complaint: PAIN Prescriptions Prescriptions: No Action hydroxyzine pamoate [Vistaril] 25 mg capsule 25 mg PO DAILY Ustell 120-0.12 mg capsule 1 cap PO TID PRN (Reason: bladder) Elmiron 100 mg capsule 100 mg PO BID latanoprost 0.005 % drops ophthalmic (eye) fluticasone propionate [Flonase Allergy Relief] 50 mcg/actuation spray,suspension 1 spray intranasal QDAY 30 Days Qty: 9.9 0RF Rx Instructions: administer into each nostril alendronate 70 mg tablet See Rx Instructions .ROUTE .COMPLEX Qty: 8 3RF Dose Instruction: TAKE 1 TABLET BY MOUTH ONCE WEEKLY Rx Instructions: TAKE 1 TABLET BY MOUTH ONCE WEEKLY atorvastatin 20 mg tablet See Rx Instructions .ROUTE .COMPLEX Qty: 30 2RF Dose Instruction: TAKE 1 TABLET BY MOUTH DAILY Rx Instructions: TAKE 1 TABLET BY MOUTH DAILY aspirin 81 mg tablet,delayed release (DR/EC) See Rx Instructions .ROUTE .COMPLEX Qty: 30 5RF Dose Instruction: TAKE 1 TABLET BY MOUTH DAILY Rx Instructions: TAKE 1 TABLET BY MOUTH DAILY cholecalciferol (vitamin D3) 25 mcg (1,000 unit) tablet See Rx Instructions .ROUTE .COMPLEX Qty: 30 0RF Dose Instruction: TAKE 1 TABLET BY MOUTH DAILY Rx Instructions: TAKE 1 TABLET BY MOUTH DAILY ergocalciferol (vitamin D2) [Vitamin D2] 1,250 mcg (50,000 unit) capsule See Rx Instructions .ROUTE .COMPLEX Qty: 14 3RF Rx Instructions: TAKE 1 CAPSULE BY MOUTH ONCE A WEEK calcium carbonate-vitamin D3 [Calcium with Vitamin D] 600 mg-10 mcg (400 unit) tablet 1 tab PO DAILY Qty: 90 3RF furosemide 40 mg tablet See Rx Instructions .ROUTE .COMPLEX Qty: 90 0RF Dose Instruction: TAKE 1 TABLET BY MOUTH DAILY NEEDED FOR EDEMA Rx Instructions: TAKE 1 TABLET BY MOUTH DAILY NEEDED FOR EDEMA cyclobenzaprine 10 mg tablet See Rx Instructions .ROUTE .COMPLEX Qty: 90 0RF Dose Instruction: TAKE 1 TABLET BY MOUTH THREE TIMES DAILY Rx Instructions: TAKE 1 TABLET BY MOUTH THREE TIMES DAILY hydrocodone-acetaminophen 10-325 mg tablet 1 tab PO Q8H PRN (Reason: pain) Qty: 90 0RF clonazepam 1 mg tablet 1 mg PO TID Qty: 90 0RF metoprolol succinate 100 mg tablet extended release 24 hr 100 mg PO DAILY Referrals Follow up/Referrals: Tatianna Howard PA [Primary Care Provider] - See instructions Clinical Impressions Clinical Impression: Abscess of parotid gland, Cellulitis Discharge ED Provider: Thom Gant General Adult HPI General Chief complaint: PAIN Stated complaint: knot on right side of neck Time Seen by Provider: 06/17/23 09:46 History of Present Illness HPI narrative: Patient is a 57-year-old female with past medical history of breast cancer on the left status post lumpectomy with lymphedema of the left upper extremity, previous ocular lymphoma status post excisional biopsy, degenerative disc disease who presents emergency department for evaluation of right-sided jaw pain. Patient was recently seen in the emergency department and treated empirically for lymphadenitis with clindamycin however provider was concerned for currently from at the time. Patient followed up with Dr. Ponce, CT neck was obtained which remarkable for a subcentimeter focal fluid collection with peripheral hyperenhancement of the right parotid gland suspicious for malignant lymph node with central necrosis. Patient then presented to ENT recently who has FNA biopsy planned for next week. Due to worsening swelling and pain she presents here for continued evaluation. No difficulty swallowing. Related Data Home Medications Medication Instructions Recorded Confirmed methenamine 120 mg-methyl.blue-sod 1 cap PO TID PRN bladder 09/10/20 06/15/23 phos-p.salicy-hyosc 0.12 mg capsule (Ustell) pentosan polysulfate sodium 100 mg 100 mg PO BID . 02/25/21 06/15/23 capsule (Elmiron) metoprolol succinate 100 mg 100 mg PO DAILY . 08/19/22 06/15/23 tablet,extended release 24 hr latanoprost 0.005 % eye drops drp ophthalmic (eye) 04/25/23 06/15/23 hydroxyzine pamoate 25 mg capsule 25 mg PO DAILY . 06/15/23 (Vistaril) Previous Rx's Medication Instructions Recorded alendronate 70 mg tablet See Rx Instructions .Route 08/20/22 .COMPLEX #8 tabs atorvastatin 20 mg tablet See Rx Instructions .Route 01/04/23 .COMPLEX #30 tabs aspirin 81 mg tablet,delayed See Rx Instructions .Route 02/07/23 release .COMPLEX #30 tabs calcium carbonate 600 mg-vitamin 1 tab PO DAILY . #90 tabs 02/23/23 D3 10 mcg (400 unit) tablet (Calcium with Vitamin D) cholecalciferol (vitamin D3) 25 See Rx Instructions .Route 02/23/23 mcg (1,000 unit) tablet .COMPLEX #30 tabs ergocalciferol (vitamin D2) 1,250 See Rx Instructions .Route 02/23/23 mcg (50,000 unit) capsule (Vitamin .COMPLEX . #14 caps D2) furosemide 40 mg tablet See Rx Instructions .Route 04/04/23 .COMPLEX #90 tabs fluticasone propionate 50 1 spray intranasal QDAY 30 days 04/25/23 mcg/actuation nasal #9.9 grams spray,suspension (Flonase Allergy Relief) cyclobenzaprine 10 mg tablet See Rx Instructions .Route 05/23/23 .COMPLEX #90 tabs hydrocodone 10 mg-acetaminophen 1 tab PO Q8H PRN pain #90 tabs 05/26/23 325 mg tablet clonazepam 1 mg tablet 1 mg PO TID Anxiety #90 tabs 06/08/23 Allergies Allergy/AdvReac Type Severity Reaction Status Date / Time Penicillins Allergy Intermediate I-RASH; Verified 06/15/23 10:06 JOINTS ACHE PFSH PFSH Disclaimer: The information contained in this section may have been updated after the patient was seen, as this information can be updated by other users. Medical History (Updated 06/17/23 @ 15:37 by Thom Gant MD) Parotid gland enlargement Tear of supraspinatus tendon LV dysfunction Abnormal echocardiogram Abnormal electrocardiogram [ECG] [EKG] Coronary artery disease Former smoker Paroxysmal A-fib Stenosis of carotid artery Rotator cuff strain Lymphoma Chronic pain DDD (degenerative disc disease), cervical Colon cancer screening Breast tumor Degenerative disc disease, cervical Degenerative disc disease, cervical Degenerative disc disease, lumbar Lymphedema of left upper extremity Subarachnoid cyst Pinched nerve in neck Surgical History History of cardiac catheterization History of bladder surgery History of lumpectomy of left breast Social History Smoking Status: Never smoker second hand exposure: No alcohol intake: never substance use type: denies use current occupational status: unemployed Travel in the last 8 weeks: None household members: spouse housing: house current occupational exposures/hazards: No caffeine: No ROS Obtained: Yes Systems reviewed as appropriate & no additional complaints except as documented Physical Exam General General appearance: alert and in no apparent distress Head Head exam: atraumatic and normocephalic Eye Eye exam: Present PERRL and EOMI ENT ENT exam: Present mucous membranes moist Neck Neck exam: Present other (Tender firm area right submandibular region, no overlying erythema. Limited range of motion of the neck secondary to pain.) Chest Chest inspection: Present normal inspection and symmetric chest wall rise Respiratory Respiratory exam: Absent respiratory distress Cardiovascular Cardiovascular exam: Present regular rate and normal rhythm Abdominal Exam Abdominal exam: Present soft Extremities Exam Extremities exam: Present normal inspection Neurological Exam Neurological exam: Present alert Psychiatric Psychiatric exam: Present normal affect Skin Skin exam: Present warm and dry Medical Decision Making Jony Inquiry Pt receiving controlled substance: No Vital Signs: 06/17/23 09:43 06/17/23 10:11 06/17/23 11:56 Temperature 98.4 F Temperature Source Oral Pulse Rate 114 H 96 H Pulse Rate [Radial] 112 H Respiratory Rate 16 20 20 Blood Pressure 150/97 H 139/78 Blood Pressure [Right Arm] 150/97 H Blood Pressure Mean 114 98 Blood Pressure Mean [Right Arm] 114 Blood Pressure Source [Right Arm] Automatic Cuff Blood Pressure Position [Right Arm] Sitting 02 Sat by Pulse Oximetry 98 98 96 Oxygen Delivery Method Room Air 06/17/23 12:00 06/17/23 12:30 06/17/23 13:00 Temperature Temperature Source Pulse Rate 94 H 89 87 Pulse Rate [Radial] Respiratory Rate 20 18 18 Blood Pressure 143/84 H 135/82 123/80 Blood Pressure [Right Arm] Blood Pressure Mean 106 110 94 Blood Pressure Mean [Right Arm] Blood Pressure Source [Right Arm] Blood Pressure Position [Right Arm] 02 Sat by Pulse Oximetry 97 96 96 Oxygen Delivery Method 06/17/23 13:30 06/17/23 14:01 06/17/23 14:47 Temperature Temperature Source Pulse Rate 86 89 83 Pulse Rate [Radial] Respiratory Rate 18 20 16 Blood Pressure 123/71 151/88 H 136/84 Blood Pressure [Right Arm] Blood Pressure Mean 88 109 101 Blood Pressure Mean [Right Arm] Blood Pressure Source [Right Arm] Blood Pressure Position [Right Arm] 02 Sat by Pulse Oximetry 98 98 97 Oxygen Delivery Method Room Air Lab Data Lab Results 06/17/23 11:10: WBC 13.8 H, RBC 3.98 L, Hgb 12.4, Hct 38.2, MCV 96.0, MCH 31.0, MCHC 32.3, RDW 14.1, Plt Count 331, MPV 9.1, Neut % (Auto) 75.8, Lymph % (Auto) 18.9, [place] % (Auto) 4.1, Eos % (Auto) 0.3, Baso % (Auto) 0.9, Neut # (Auto) 10.5 H, Lymph # (Auto) 2.6, [place] # (Auto) 0.6, Eos # (Auto) 0.0, Baso # (Auto) 0.1, Sodium 138, Potassium 3.5, Chloride 98, Carbon Dioxide 35 H, Anion Gap 8.5, BUN 14, Creatinine 0.90, Estimated Creat Clear 86, Estimated GFR 64, Est GFR ( Amer) 78, Glucose 115 H, Uric Acid 6.1, Calcium 9.4, Total Bilirubin 0.5, AST 33, ALT 24, Alkaline Phosphatase 82, Total Protein 7.8, Albumin 4.0, G lobulin 3.8 H, Albumin/Globulin Ratio 1.1 06/17/23 11:10 06/17/23 11:10 Orders (Tests/Meds): ED MEDICATIONS Generic Name Dose Route Start Last Admin Trade Name Freq PRN Reason Stop Dose Admin Vancomycin/PEG/NADA/Lysine/Water 1.5 gm in 300 mls @ 150 mls/hr 06/17/23 14:00 Vancomycin 1.5gm/300ml (Peg) Premix IV 06/17/23 15:59 ONCE ONE Discontinued Medications Generic Name Dose Route Start Last Admin Trade Name Freq PRN Reason Stop Dose Admin Acetaminophen 1,000 mg 06/17/23 10:08 06/17/23 10:19 Acetaminophen 1,000mg/100ml Vial IV 06/17/23 10:09 1,000 mg ONCE ONE Administration Lactated Ringer's 1,000 mls @ 999 mls/hr 06/17/23 11:24 06/17/23 11:54 Lactated Ringer's 1000 Ml Bag IV 06/17/23 12:24 999 mls/hr .Q1H1M ONE Administration Metronidazole 500 mg in 100 mls @ 100 mls/hr 06/17/23 13:38 06/17/23 14:45 Flagyl 500mg/100ml Ivpb IV 06/17/23 14:37 100 mls/hr ONCE ONE Administration Iopamidol 150 ml 06/17/23 11:37 06/17/23 11:38 Iopamidol-370 (76%);100ml Bottle IV 06/17/23 11:38 150 ml ONCE ONE Administration Ketorolac Tromethamine 30 mg 06/17/23 10:08 06/17/23 10:19 Ketorolac 30mg/Ml Vial IV 06/17/23 10:09 30 mg ONCE ONE Administration Miscellaneous 1 each 06/17/23 13:45 06/17/23 13:44 Vancomycin Consult Request NOTAPPLIC 07/17/23 13:44 1 each [facility] Administration Oxycodone HCl 5 mg 06/17/23 10:10 06/17/23 10:19 Oxycodone 5mg Immediate Release Tablet PO 06/17/23 10:11 5 mg ONCE ONE Administration Sodium Chloride 10 ml 06/17/23 11:37 06/17/23 11:38 Sodium Chloride 0.9% 10ml Syr (Rad Only) IV 06/17/23 11:38 10 ml ONCE ONE Administration ORDERS Category Date Time Status CT chest w con Stat Cat Scan 06/17/23 10:[address] soft tissue neck w con Stat Cat Scan 06/17/23 10:08 Completed CBC w/Auto Diff [Complete Blood Count Auto Diff] Stat Lab 06/17/23 11:10 Completed CMP [Comprehensive Metabolic Panel] Stat Lab 06/17/23 11:10 Completed Uric Acid Stat Lab 06/17/23 11:10 Completed Blood Culture Stat Micro 06/17/23 14:31 Received Medical Decision Narrative: In summary patient is a 57-year-old female with past medical history described above presents emergency department for evaluation of worsening jaw pain and swelling in the setting of suspected necrotic lymph node with history of lymphoma. Patient is hemodynamically stable nontoxic-appearing upon arrival, afebrile. What these findings mean and plan of care was discussed extensively at bedside. Differential includes worsening malignancy, abscess, among others. Workup will be conducted with CT neck, CT chest with IV contrast, hematologic labs. Initial interventions include multimodal pain control with Tylenol, Toradol, oxycodone. Workup reviewed by me, hematologic labs remarkable for mild leukocytosis, no critical electrolyte abnormality. Chest CT shows no mass or localized inflammatory process. CT imaging of the face shows enlargement of the low-attenuation fluid collection or mass in the right parotid gland since June 13 worrisome for enlarging abscess or suppurative node although neoplasm not excluded with soft tissue stranding on the right side of the neck involving the platysma and sternocleidomastoid consistent with cellulitis with several enlarged right internal jugular chain nodes favored to be reactive rather than neoplastic. The case was discussed with [facility] Dr. Drake who agrees with my antibiotic choice, says there is no indication for transfer at this time given that no surgical indication and patient should be admitted to [facility] for IV antibiotics and monitoring and should complications arise that require surgery to transfer at that point. The case was discussed with hospitalist who is uncomfortable admitting the patient here given that we do not have inpatient ENT, no inpatient oncology. Given this the case was discussed with [facility] again Dr. Terry who graciously excepted patient for transfer for continued evaluation at this time. Procedure: Procedure performed was ultrasound-guided IV. Procedure performed by Thom Gant. Indication was neck pain and staff unable to obtain IV access. Using ultrasound guidance the right basilic vein was cannulated with a long 18- gauge peripheral IV. Vessel cannula was patent. Images were not saved to permanent archive. Patient tolerated the procedure well. There were no immediate complications. Critical Care Critical Care Time Critical Care Time: No
[2023-06-17] MEDS: OXYCODONE 5MG IMMEDIATE RELEASE TABLET 5 MG PO (10:19)
[2023-06-17] MEDS: KETOROLAC 30MG/ML VIAL 30 MG IV (10:19)
[2023-06-17] MEDS: ACETAMINOPHEN 1,000MG/100ML VIAL 1000 MG IV (10:19)
[2023-06-17 11:19] LABS: Basophils # 0.1 K/mm3 (0-0.2); Basophils % 0.9 % (0.1-2.0); Eosinophils % 0.3 % (0.1-12.0); Hematocrit 38.2 % (37.0-47.0); Hemoglobin 12.4 g/dL (12.2-16.2); Lymphocytes # 2.6 K/mm3 (0.7-4.5); Lymphocytes % 18.9 % (10-50); Mean Corpuscular HGB Conc 32.3 g/dL (31.8-35.4); Mean Platelet Volume 9.1 fl (7.4-10.4); Monocytes # 0.6 K/mm3 (0.1-1.0); Monocytes % 4.1 % (1.7-9.3); Neutrophils # 10.5 K/mm3 (1.8-7.8); Neutrophils % 75.8 % (37.0-80.0); Platelet Count 331 K/mm3 (142-424); Red Blood Count 3.98 M/mm3 (4.20-5.40); Red Cell Distribution Width 14.1 % (11.5-17.5); White Blood Count 13.8 K/mm3 (4.8-10.8)
[2023-06-17 11:26] LABS: Chloride 98 mmol/L (98-107); Potassium 3.5 mmoL/L (3.5-5.1); Sodium 138 mmol/L (136-145)
[2023-06-17 11:29] LABS: Alanine Aminotransferase 24 U/L (12-78); Albumin/Globulin Ratio 1.1 (1.1-1.8); Alkaline Phosphatase 82 U/L (38-126); Anion Gap 8.5 mEq/L (5-15); Aspartate Amino Transferase 33 U/L (14-36); Bilirubin,Total 0.5 mg/dl (0.2-1.3); Blood Urea Nitrogen 14 mg/dl (7-17); Calcium 9.4 mg/dl (8.4-10.2); Carbon Dioxide 35 mmol/L (22.0-30.0); Creatinine Clearance Estimated 86 mL/min (50-200); Estimated Glomerular Filt Rate 64 ml/min (>60); GFR (African American) 78 ML/MIN (>60); Globulin 3.8 g/dL (1.3-3.2); Glucose 115 mg/dl (74-100); Total Protein,Serum 7.8 g/dl (6.3-8.2)
[2023-06-17 11:35] LABS: Uric Acid 6.1 mg/dl (2.5-6.2)
[2023-06-17] MEDS: SODIUM CHLORIDE 0.9% 10ML SYR (RAD ONLY) 10 ML IV (11:38)
[2023-06-17] MEDS: IOPAMIDOL-370 (76%);100ML BOTTLE 150 ML IV (11:38)
[2023-06-17] MEDS: LACTATED RINGERS 1000ML 1,000 ML 999 ML IV (11:54)
--- NOTE | 2023-06-17 13:25 | PC.NURSE ---
pt sitting on the side of the bed. at bedside. no needs voiced at this time. call light within reach. bed in lowest position.
[2023-06-17] MEDS: VANCOMYCIN CONSULT REQUEST 1 EACH NOTAPPLIC (13:44)
--- NOTE | 2023-06-17 14:13 | PC.NURSE ---
Called [facility] for transfer to ENT
--- NOTE | 2023-06-17 14:27 | PC.NURSE ---
Dr Gant speaking with Dr Drake at [facility]
[2023-06-17] MEDS: METRONIDAZ/SOD CHL 500 MG/100 ML PIGGYBACK 100 MG IV (14:45)
--- NOTE | 2023-06-17 14:49 | PC.NURSE ---
Rounded on patient; nothing needed at this time. Call light within reach
--- NOTE | 2023-06-17 15:13 | PC.NURSE ---
called [facility] to advise our hospitalist would not accept pt, we would like to transfer, they will page hospitalist
--- NOTE | 2023-06-17 15:33 | PC.NURSE ---
Dr Gant speaking to Dr Terry at [facility]
--- NOTE | 2023-06-17 15:36 | PC.NURSE ---
Dr Delcid with [facility] has accepted the pt for transfer. Faxing face-sheet to [facility] [phone]
--- NOTE | 2023-06-17 15:39 | PC.NURSE ---
face sheet faxed
[2023-06-17] MEDS: VANCOMYCIN/WATER FOR INJ (PEG) 1.5 GM/300 ML PIGGYBACK IV (15:49)
--- NOTE | 2023-06-17 16:08 | PC.NURSE ---
[facility] called for transport
== END 2023-06-17 16:37 | disposition home or self-care (01) ==
PROVIDERS: Emergency Provider Emergency Medicine; PCP Physician Assistant
DX: K11.3 Abscess of salivary gland (principal); R59.0 Localized enlarged lymph nodes; K11.1 Hypertrophy of salivary gland; I25.10 Atherosclerotic heart disease of native coronary artery without angina pectoris; I65.29 Occlusion and stenosis of unspecified carotid artery; Z87.891 Personal history of nicotine dependence; I48.0 Paroxysmal atrial fibrillation
CPT/HCPCS: 36415; 70491; 71260; 80053; 84550; 85025; 87040; 96361; 96365; 96366; 96367; 96375; 99285; J0131; Q9967

== ENCOUNTER 2023-06-29 09:05 | Outpatient (CLI) | payer MEDICAID, SELFPAY ==
[2023-06-29] VITALS (7 sets, daily range): BP systolic 110–123; BP diastolic 64–74; PULSE 67–75; RESP 18; TEMP 36.8; O2SAT 97; BMI 29.7
[2023-06-29 09:44] LABS: Basophils # 0.1 K/mm3 (0-0.2); Basophils % 0.5 % (0.1-2.0); Eosinophils # 0.1 K/mm3 (0.0-0.4); Eosinophils % 0.7 % (0.1-12.0); Hematocrit 28.1 % (37.0-47.0); Lymphocytes # 2.1 K/mm3 (0.7-4.5); Lymphocytes % 14.8 % (10-50); Mean Corpuscular Hemoglobin 32.1 pg (27.0-31.2); Mean Corpuscular Volume 100.3 fl (81-99); Mean Platelet Volume 9.1 fl (7.4-10.4); Monocytes # 0.6 K/mm3 (0.1-1.0); Neutrophils # 11.6 K/mm3 (1.8-7.8); Neutrophils % 79.9 % (37.0-80.0); Platelet Count 391 K/mm3 (142-424); Red Cell Distribution Width 15.4 % (11.5-17.5); White Blood Count 14.5 K/mm3 (4.8-10.8)
[2023-06-29] MEDS: CEFTRIAXONE SODIUM 2 GM in 0.9 % SODIUM CHLORIDE 100 ML IV (09:50)
[2023-06-29] MEDS: SODIUM CHLORIDE 0.9% 50ML BAG 50 ML IV (09:50)
[2023-06-29 09:51] LABS: Chloride 104 mmol/L (98-107); Sodium 140 mmol/L (136-145)
[2023-06-29 09:53] LABS: Alanine Aminotransferase 40 U/L (12-78); Aspartate Amino Transferase 45 U/L (14-36); Blood Urea Nitrogen 4 mg/dl (7-17); Creatinine Clearance Estimated 111 mL/min (50-200); Estimated Glomerular Filt Rate 86 ml/min (>60); GFR (African American) 104 ML/MIN (>60)
[2023-06-29 09:54] LABS: Albumin Level 3.2 g/dl (3.5-5.0); Alkaline Phosphatase 55 U/L (38-126); Anion Gap 3.8 mEq/L (5-15); Bilirubin,Total 0.4 mg/dl (0.2-1.3); Calcium 8.7 mg/dl (8.4-10.2); Carbon Dioxide 35 mmol/L (22.0-30.0); Globulin 3.2 g/dL (1.3-3.2); Glucose 134 mg/dl (74-100); Total Protein,Serum 6.4 g/dl (6.3-8.2)
[2023-06-29 10:00] LABS: C-Reactive Protein 6.8 mg/L (0-4)
[2023-06-29 10:04] LABS: Potassium 2.8 mmoL/L (3.5-5.1)
[2023-06-29] MEDS: KCl 20mEq/100ml 100 ML 50 MEQ IV (10:30)
[2023-06-29] MEDS: SODIUM CHLORIDE 0.9% 10ML FLUSH SYRINGE 10 ML IV (10:30)
== END 2023-06-29 11:35 | disposition home or self-care (01) ==
LOC: INF 09:06
PROVIDERS: Internal Medicine Infectious Disease; PCP Physician Assistant; Visit Provider Physician Assistant
DX: K11.3 Abscess of salivary gland (principal)
CPT/HCPCS: 80053; 85025; 86140; 96365; 96367; J0696

== ENCOUNTER 2023-06-30 09:34 | Outpatient (CLI) | payer MEDICAID, SELFPAY ==
[2023-06-30 09:40] VITALS: BP 151/78; PULSE 84; RESP 18; O2SAT 99
[2023-06-30] MEDS: SODIUM CHLORIDE 0.9% 10ML FLUSH SYRINGE 10 ML IV (09:40)
[2023-06-30] MEDS: CEFTRIAXONE SODIUM 2 GM in 0.9 % SODIUM CHLORIDE 100 ML IV (09:40)
[2023-06-30] MEDS: SODIUM CHLORIDE 0.9% 50ML BAG 50 ML IV (09:40)
[2023-06-30 10:10] VITALS: BP 138/72; PULSE 70
== END 2023-06-30 10:15 | disposition home or self-care (01) ==
LOC: INF 09:34
PROVIDERS: PCP Physician Assistant; Visit Provider Physician Assistant
DX: K11.3 Abscess of salivary gland (principal)
CPT/HCPCS: 96365; J0696

== ENCOUNTER 2023-07-01 09:16 | Outpatient (CLI) | payer MEDICAID, SELFPAY ==
[2023-07-01 09:45] VITALS: BP 121/70; PULSE 80; RESP 18; O2SAT 99
[2023-07-01] MEDS: SODIUM CHLORIDE 0.9% 10ML FLUSH SYRINGE 10 ML IV (09:45)
[2023-07-01] MEDS: SODIUM CHLORIDE 0.9% 50ML BAG 50 ML IV (09:45)
[2023-07-01] MEDS: CEFTRIAXONE SODIUM 2 GM in 0.9 % SODIUM CHLORIDE 100 ML IV (09:45)
[2023-07-01 10:15] VITALS: BP 124/72; PULSE 79
== END 2023-07-01 10:50 | disposition home or self-care (01) ==
LOC: INF 09:16
PROVIDERS: PCP Physician Assistant; Visit Provider Physician Assistant
DX: K11.3 Abscess of salivary gland (principal)
CPT/HCPCS: 96365; J0696

== ENCOUNTER 2023-07-02 08:39 | Outpatient (CLI) | payer MEDICAID, SELFPAY ==
[2023-07-02 08:45] VITALS: BP 136/76; PULSE 90; RESP 17; O2SAT 97
[2023-07-02] MEDS: CEFTRIAXONE SODIUM 2 GM in 0.9 % SODIUM CHLORIDE 100 ML IV (08:54)
== END 2023-07-02 23:59 | disposition home or self-care (01) ==
LOC: INF 08:40
PROVIDERS: PCP Physician Assistant; Visit Provider Physician Assistant
DX: K11.3 Abscess of salivary gland (principal)
CPT/HCPCS: 96365; J0696

== ENCOUNTER 2023-07-03 09:05 | Outpatient (CLI) | payer MEDICAID, SELFPAY ==
[2023-07-03] MEDS: CEFTRIAXONE SODIUM 2 GM in 0.9 % SODIUM CHLORIDE 100 ML IV (09:30)
== END 2023-07-03 23:59 | disposition home or self-care (01) ==
LOC: INF 09:07
PROVIDERS: PCP Physician Assistant; Visit Provider Physician Assistant
DX: K11.3 Abscess of salivary gland (principal)
CPT/HCPCS: 96365; J0696

== ENCOUNTER 2023-07-04 10:18 | Outpatient (CLI) | payer MEDICAID, SELFPAY ==
[2023-07-04 10:29] VITALS: BP 138/89; PULSE 83; RESP 18; TEMP 36.4; O2SAT 100
[2023-07-04] MEDS: SODIUM CHLORIDE 0.9% 10ML FLUSH SYRINGE 10 ML IV (10:29)
[2023-07-04] MEDS: SODIUM CHLORIDE 0.9% 50ML BAG 50 ML IV (10:29)
[2023-07-04] MEDS: CEFTRIAXONE SODIUM 2 GM in 0.9 % SODIUM CHLORIDE 100 ML IV (10:29)
[2023-07-04 11:12] VITALS: BP 131/82; PULSE 84; RESP 18; O2SAT 99
== END 2023-07-04 11:15 | disposition home or self-care (01) ==
LOC: INF 10:19
PROVIDERS: PCP Physician Assistant; Visit Provider Physician Assistant
DX: K11.3 Abscess of salivary gland (principal)
CPT/HCPCS: 96365; J0696

== ENCOUNTER 2023-07-05 09:06 | Outpatient (CLI) | payer MEDICAID, SELFPAY ==
[2023-07-05 09:20] VITALS: BP 140/82; PULSE 93; RESP 18; TEMP 36.8; O2SAT 97
[2023-07-05] MEDS: CEFTRIAXONE SODIUM 2 GM in 0.9 % SODIUM CHLORIDE 100 ML IV (09:20)
[2023-07-05] MEDS: SODIUM CHLORIDE 0.9% 50ML BAG 50 ML IV (09:20)
[2023-07-05 09:50] VITALS: BP 145/82; PULSE 87; RESP 18; O2SAT 98
[2023-07-05] MEDS: SODIUM CHLORIDE 0.9% 10ML FLUSH SYRINGE 10 ML IV (09:58)
== END 2023-07-05 09:58 | disposition home or self-care (01) ==
LOC: INF 09:06
PROVIDERS: PCP Physician Assistant; Visit Provider Physician Assistant
DX: K11.3 Abscess of salivary gland (principal)
CPT/HCPCS: 96365; J0696

== ENCOUNTER 2023-07-06 09:05 | Outpatient (CLI) | payer MEDICAID, SELFPAY ==
[2023-07-06 09:27] VITALS: BP 161/76; PULSE 98; RESP 18; O2SAT 97
[2023-07-06] MEDS: SODIUM CHLORIDE 0.9% 50ML BAG 50 ML IV (09:27)
[2023-07-06] MEDS: CEFTRIAXONE SODIUM 2 GM in 0.9 % SODIUM CHLORIDE 100 ML IV (09:27)
[2023-07-06 10:15] VITALS: BP 139/73; PULSE 74; RESP 18; O2SAT 97
== END 2023-07-06 10:15 | disposition home or self-care (01) ==
LOC: INF 09:05
PROVIDERS: PCP Physician Assistant; Visit Provider Physician Assistant
DX: K11.3 Abscess of salivary gland (principal)
CPT/HCPCS: 96365; J0696

== ENCOUNTER 2023-07-07 07:54 | Outpatient (CLI) | payer MEDICAID, SELFPAY ==
[2023-07-07 08:09] VITALS: BMI 29.4
[2023-07-07 08:15] VITALS: BP 142/71; PULSE 72; RESP 18; TEMP 36.8; O2SAT 98
[2023-07-07] MEDS: SODIUM CHLORIDE 0.9% 10ML FLUSH SYRINGE 10 ML IV (08:15)
[2023-07-07] MEDS: 0.9 % SODIUM CHLORIDE 50 ML 100 ML IV (08:15)
[2023-07-07] MEDS: CEFTRIAXONE SODIUM 2 GM in 0.9 % SODIUM CHLORIDE 100 ML IV (08:15)
[2023-07-07 08:31] LABS: Basophils # 0.1 K/mm3 (0-0.2); Eosinophils # 0.1 K/mm3 (0.0-0.4); Eosinophils % 1.1 % (0.1-12.0); Hematocrit 31.2 % (37.0-47.0); Lymphocytes # 1.4 K/mm3 (0.7-4.5); Mean Corpuscular HGB Conc 32.1 g/dL (31.8-35.4); Mean Corpuscular Hemoglobin 32.4 pg (27.0-31.2); Mean Corpuscular Volume 101.1 fl (81-99); Monocytes # 0.4 K/mm3 (0.1-1.0); Monocytes % 4.9 % (1.7-9.3); Neutrophils # 6.4 K/mm3 (1.8-7.8); Platelet Count 424 K/mm3 (142-424); Red Blood Count 3.08 M/mm3 (4.20-5.40); Red Cell Distribution Width 14.8 % (11.5-17.5); White Blood Count 8.4 K/mm3 (4.8-10.8)
[2023-07-07 08:42] LABS: Chloride 105 mmol/L (98-107); Potassium 3.7 mmoL/L (3.5-5.1); Sodium 139 mmol/L (136-145)
[2023-07-07 08:45] LABS: Alanine Aminotransferase 22 U/L (12-78); Albumin Level 3.4 g/dl (3.5-5.0); Alkaline Phosphatase 58 U/L (38-126); Anion Gap 6.7 mEq/L (5-15); Aspartate Amino Transferase 38 U/L (14-36); Bilirubin,Total 0.4 mg/dl (0.2-1.3); Blood Urea Nitrogen 8 mg/dl (7-17); Calcium 9.2 mg/dl (8.4-10.2); Carbon Dioxide 31 mmol/L (22.0-30.0); Creatinine Clearance Estimated 108 mL/min (50-200); Estimated Glomerular Filt Rate 85 ml/min (>60); GFR (African American) 103 ML/MIN (>60); Globulin 3.3 g/dL (1.3-3.2); Glucose 109 mg/dl (74-100); Total Protein,Serum 6.7 g/dl (6.3-8.2)
[2023-07-07 08:50] VITALS: BP 134/70; PULSE 78
[2023-07-07 08:57] LABS: C-Reactive Protein 2.2 mg/L (0-4)
== END 2023-07-07 08:55 | disposition home or self-care (01) ==
LOC: INF 07:54
PROVIDERS: Internal Medicine Infectious Disease; PCP Physician Assistant; Visit Provider Physician Assistant
DX: K11.3 Abscess of salivary gland (principal); Z79.899 Other long term (current) drug therapy
CPT/HCPCS: 80053; 85025; 86140; 96365; J0696

== ENCOUNTER 2023-09-29 14:01 | Outpatient (CLI) | payer MEDICAID, SELFPAY | END 2023-09-29 23:59 | disposition home or self-care (01) | LOC: LAB.DROPOF 09-30 14:02 | PROVIDERS: PCP Physician Assistant; Visit Provider Physician Assistant | DX: N39.0 Urinary tract infection, site not specified (principal) | CPT/HCPCS: 87086; 87088 ==

== ENCOUNTER 2023-10-19 10:43 | Outpatient (POV) | payer MEDICAID, SELFPAY | END 2023-10-19 23:59 | disposition home or self-care (01) | LOC: SC 10:44 | PROVIDERS: Visit Provider Specialist/Technologist | DX: Z00.00 Encounter for general adult medical examination without abnormal findings (principal) ==

== ENCOUNTER 2023-11-04 17:55 | Emergency (ER) | payer MEDICAID, SELFPAY ==
[2023-11-04 17:57] VITALS: PULSE 98; RESP 18; TEMP 36.7; O2SAT 98; BMI 30.7
[2023-11-04 18:18] VITALS: BMI 30.7
--- NOTE | 2023-11-04 18:19 | XR_ITS ---
PROCEDURE INFORMATION: Exam: XR Right Elbow Exam date and time: 11/04/2023 6:15 PM Age: 58 years old Clinical indication: Injury or trauma; Fall; Blunt trauma (contusions or hematomas); Elbow; Right; Additional info: Fall, pain, skin tear difficulty moving TECHNIQUE: Imaging protocol: Radiologic exam of the right elbow. Views: 3 or more views. COMPARISON: No relevant prior studies available. FINDINGS: Bones/joints: Moderate osteophytosis and degenerative changes involve the ulnar trochlear joint. No evidence of acute osseous abnormality. Soft tissues: Normal. Anterior and posterior fat pads are not displaced. IMPRESSION: 1. Moderate osteophytosis and degenerative changes involve the ulnar trochlear joint. 2. No evidence of acute osseous abnormality.
--- NOTE | 2023-11-04 18:19 | XR_ITS ---
PROCEDURE INFORMATION: Exam: XR Right Forearm Exam date and time: 11/04/2023 6:16 PM Age: 58 years old Clinical indication: Injury or trauma; Fall; Blunt trauma (contusions or hematomas); Arm, lower; Right; Additional info: Fall, pain, skin tear difficulty moving TECHNIQUE: Imaging protocol: Radiologic exam of the right forearm. Views: 2 views. COMPARISON: CR XR ELBOW RT MIN 3V 11/04/2023 6:15 PM FINDINGS: Bones/joints: Moderate osteophytosis and degenerative changes involve the ulnar trochlear joint. No evidence of acute osseous abnormality. Soft tissues: Normal. Anterior and posterior fat pads are not displaced. IMPRESSION: 1. Moderate osteophytosis and degenerative changes involve the ulnar trochlear joint. 2. No evidence of acute osseous abnormality.
--- NOTE | 2023-11-04 20:00 | PC.NURSE ---
Wound cleaned with water and hibiclens. LET gel applied at 2000
--- NOTE | 2023-11-04 20:11 | HMH.EDGENADL ---
Discharge Plan Disposition Patient Disposition: Home, Self-Care Chief Complaint: Fall Prescriptions Prescriptions: No Action ondansetron 8 mg tablet,disintegrating 8 mg PO Q8H PRN (Reason: nausea and vomiting) 5 Days Qty: 30 0RF clonazepam 1 mg tablet 1 mg PO Q8H PRN (Reason: anxiety) Qty: 90 0RF hydrocodone-acetaminophen 10-325 mg tablet 1 tab PO Q4-6H PRN (Reason: pain) Qty: 90 0RF hydrocodone-acetaminophen 10-325 mg tablet 1 tab PO Q4-6H PRN (Reason: pain) Qty: 90 0RF hydrocodone-acetaminophen 10-325 mg tablet 1 tab PO Q4-6H PRN (Reason: pain) Qty: 90 0RF Ustell 120-0.12 mg capsule 1 cap PO TID PRN (Reason: bladder) Elmiron 100 mg capsule 100 mg PO BID latanoprost 0.005 % drops 2 drp ophthalmic (eye) DAILY fluticasone propionate [Flonase Allergy Relief] 50 mcg/actuation spray,suspension 1 spray intranasal QDAY 30 Days Qty: 9.9 0RF Rx Instructions: administer into each nostril levocetirizine [Xyzal] 5 mg tablet 5 mg PO DAILY Qty: 30 2RF azelastine 137 mcg (0.1 %) spray,non-aerosol 2 spray intranasal BID Qty: 30 2RF Rx Instructions: administer into each nostril alendronate 70 mg tablet See Rx Instructions .ROUTE .COMPLEX Qty: 8 3RF Dose Instruction: TAKE 1 TABLET BY MOUTH ONCE WEEKLY Rx Instructions: TAKE 1 TABLET BY MOUTH ONCE WEEKLY atorvastatin 20 mg tablet See Rx Instructions .ROUTE .COMPLEX Qty: 30 2RF Dose Instruction: TAKE 1 TABLET BY MOUTH DAILY Rx Instructions: TAKE 1 TABLET BY MOUTH DAILY aspirin 81 mg tablet,delayed release (DR/EC) See Rx Instructions .ROUTE .COMPLEX Qty: 30 5RF Dose Instruction: TAKE 1 TABLET BY MOUTH DAILY Rx Instructions: TAKE 1 TABLET BY MOUTH DAILY cholecalciferol (vitamin D3) 25 mcg (1,000 unit) tablet See Rx Instructions .ROUTE .COMPLEX Qty: 30 0RF Dose Instruction: TAKE 1 TABLET BY MOUTH DAILY Rx Instructions: TAKE 1 TABLET BY MOUTH DAILY ergocalciferol (vitamin D2) [Vitamin D2] 1,250 mcg (50,000 unit) capsule See Rx Instructions .ROUTE .COMPLEX Qty: 14 3RF Rx Instructions: TAKE 1 CAPSULE BY MOUTH ONCE A WEEK calcium carbonate-vitamin D3 [Calcium with Vitamin D] 600 mg-10 mcg (400 unit) tablet 1 tab PO DAILY Qty: 90 3RF metoprolol succinate 100 mg tablet extended release 24 hr See Rx Instructions .ROUTE .COMPLEX Qty: 90 2RF Dose Instruction: TAKE 1 TABLET BY MOUTH ONCE DAILY Rx Instructions: TAKE 1 TABLET BY MOUTH ONCE DAILY Eliquis 5 mg tablet 5 mg PO BID Qty: 180 1RF hydroxyzine pamoate 25 mg capsule See Rx Instructions .ROUTE .COMPLEX Qty: 90 0RF Dose Instruction: TAKE 1 CAPSULE BY MOUTH ONCE DAILY Rx Instructions: TAKE 1 CAPSULE BY MOUTH ONCE DAILY ciprofloxacin HCl [Cipro] 500 mg tablet 500 mg PO BID 5 Days Qty: 10 0RF fluconazole 150 mg tablet 150 mg PO .QOD 10 Days Qty: 5 0RF furosemide 40 mg tablet See Rx Instructions .ROUTE .COMPLEX Qty: 90 0RF Dose Instruction: TAKE 1 TABLET BY MOUTH DAILY NEEDED FOR EDEMA Rx Instructions: TAKE 1 TABLET BY MOUTH DAILY NEEDED FOR EDEMA cyclobenzaprine 10 mg tablet See Rx Instructions .ROUTE .COMPLEX Qty: 90 0RF Dose Instruction: TAKE 1 TABLET BY MOUTH THREE TIMES DAILY Rx Instructions: TAKE 1 TABLET BY MOUTH THREE TIMES DAILY acyclovir 800 mg tablet 800 mg PO 5XD Qty: 30 2RF Referrals Follow up/Referrals: Tatianna Howard PA [Primary Care Provider] - See instructions Activity Restrictions/Add. Instructions Additional Instructions/Restrictions: Call your family doctor to establish care for this visit to the emergency department and schedule follow-up within 48 hours to ensure improvement. If you have any worsening of your condition or any other concerning signs or symptoms, return to the emergency department or your primary care doctor for further evaluation
--- NOTE | 2023-11-04 21:20 | PC.NURSE ---
provider in room, repairing skin tear at this time
[2023-11-04 21:52] VITALS: BP 136/78; PULSE 88; RESP 18; TEMP 36.7; O2SAT 98
== END 2023-11-04 21:53 | disposition home or self-care (01) ==
PROVIDERS: Emergency Provider Emergency Medicine; PCP Physician Assistant
DX: S51.801A Unspecified open wound of right forearm, initial encounter (principal); W10.8XXA Fall (on) (from) other stairs and steps, initial encounter; Z79.01 Long term (current) use of anticoagulants; I48.0 Paroxysmal atrial fibrillation; Z23 Encounter for immunization
CPT/HCPCS: 73080; 73090; 90471; 90715; 99283

== ENCOUNTER 2023-11-29 15:47 | Outpatient (CLI) | payer MEDICAID, SELFPAY ==
--- NOTE | 2023-11-29 15:50 | MM_ITS ---
PROCEDURE INFORMATION: Exam: MG Bilateral Screening 3D Mammography Exam date and time: 11/29/2023 3:36 PM Age: 58 years old Clinical indication: Screening examination TECHNIQUE: Imaging protocol: Bilateral Screening tomosynthesis and 2D mammography including computer-aided detection (CAD) when performed. COMPARISON: 1. MG MAMMO SCREENING DIGITAL TOMOSYNTHESIS BILATERAL W CAD 03/24/2022 9:05 AM 2. MG MAMMO SCREENING DIGITAL TOMOSYNTHESIS BILATERAL W CAD 11/22/2019 9:54 AM FINDINGS: MAMMOGRAPHY: Breast composition: There are scattered areas of fibroglandular density. Mass: None. Architectural distortion: Stable post operative architectural distortion in the left Yessi areolar region Calcifications: No suspicious calcifications. Asymmetric density: None. Skin thickening: Stable nonspecific mild skin thickening of the left anterior breast compared to prior mammograms dating back to and including 11/22/2019. This is most likely postoperative in etiology given the lack of interval change . Axillary adenopathy: None. IMPRESSION: No mammographic evidence of malignancy. Annual screening is recommended unless otherwise clinically indicated. ASSESSMENT: BI-RADS Category 2: Benign.
== END 2023-11-29 23:59 | disposition home or self-care (01) ==
LOC: RAD 15:48
PROVIDERS: PCP Family Medicine; Visit Provider Family Medicine
DX: Z12.31 Encounter for screening mammogram for malignant neoplasm of breast (principal)
CPT/HCPCS: 77063; 77067

== ENCOUNTER 2023-12-27 10:39 | Outpatient (CLI) | payer MEDICAID, SELFPAY ==
[2023-12-27 18:48] LABS: Basophils # 0.1 K/mm3 (0-0.2); Basophils % 0.9 % (0.1-2.0); Eosinophils # 0.1 K/mm3 (0.0-0.4); Eosinophils % 0.7 % (0.1-12.0); Hematocrit 39.9 % (37.0-47.0); Hemoglobin 13.1 g/dL (12.2-16.2); Lymphocytes # 2.1 K/mm3 (0.7-4.5); Mean Corpuscular HGB Conc 32.9 g/dL (31.8-35.4); Mean Corpuscular Hemoglobin 30.2 pg (27.0-31.2); Mean Corpuscular Volume 91.8 fl (81-99); Mean Platelet Volume 10.1 fl (7.4-10.4); Monocytes # 0.5 K/mm3 (0.1-1.0); Monocytes % 5.5 % (1.7-9.3); Neutrophils # 6.5 K/mm3 (1.8-7.8); Platelet Count 378 K/mm3 (142-424); Red Blood Count 4.35 M/mm3 (4.20-5.40); Red Cell Distribution Width 13.8 % (11.5-17.5); White Blood Count 9.3 K/mm3 (4.8-10.8)
[2023-12-27 19:15] LABS: Albumin Level 4.4 g/dl (3.5-5.0); Chloride 97 mmol/L (98-107); Potassium 4.7 mmoL/L (3.5-5.1); Sodium 139 mmol/L (136-145)
[2023-12-27 19:17] LABS: Alanine Aminotransferase 20 U/L (12-78); Anion Gap 13.7 mEq/L (5-15); Aspartate Amino Transferase 30 U/L (14-36); Blood Urea Nitrogen 17 mg/dl (7-17); Carbon Dioxide 33 mmol/L (22.0-30.0); Estimated Glomerular Filt Rate 64 ml/min (>60); GFR (African American) 77 ML/MIN (>60)
[2023-12-27 19:18] LABS: Albumin/Globulin Ratio 1.2 (1.1-1.8); Alkaline Phosphatase 83 U/L (38-126); Bilirubin,Total 0.6 mg/dl (0.2-1.3); Calcium 9.8 mg/dl (8.4-10.2); Chol/HDL Ratio 2.6 (1-3.5); Cholesterol 184 mg/dl (140-200); Globulin 3.6 g/dL (1.3-3.2); Glucose 127 mg/dl (74-100); HDL Cholesterol 70 mg/dl (40-60); Triglycerides 129 mg/dl (30-150); VLDL Cholesterol 26 mg/dL (0-40)
[2023-12-27 19:29] LABS: Direct LDL Cholesterol 76.43 mg/dL (100-129)
== END 2023-12-27 23:59 | disposition home or self-care (01) ==
LOC: LAB.DROPOF 12-28 10:40
PROVIDERS: PCP Family Medicine; Visit Provider Family Medicine
DX: H65.21 Chronic serous otitis media, right ear (principal)
CPT/HCPCS: 80053; 80061; 85025

== ENCOUNTER 2023-12-28 22:12 | Outpatient (CLI) | payer MEDICAID, SELFPAY | END 2023-12-28 23:59 | disposition home or self-care (01) | LOC: LAB.DROPOF 22:13 | PROVIDERS: PCP Family Medicine; Visit Provider Family Medicine | DX: N39.0 Urinary tract infection, site not specified (principal) | CPT/HCPCS: 87086; 87088; 87186 ==

== ENCOUNTER 2024-01-05 19:11 | Outpatient (CLI) | payer MEDICAID, SELFPAY ==
[2024-01-05 19:55] LABS: Hemoglobin A1C 5.6 % (4.0-6.0)
== END 2024-01-05 23:59 | disposition home or self-care (01) ==
LOC: LAB.DROPOF 19:12
PROVIDERS: PCP Family Medicine; Visit Provider Family Medicine
DX: R73.09 Other abnormal glucose (principal)
CPT/HCPCS: 83036

== ENCOUNTER 2024-01-11 08:27 | Outpatient (CLI) | payer MEDICAID, SELFPAY ==
--- NOTE | 2024-01-11 08:31 | XR_ITS ---
PROCEDURE INFORMATION: Exam: XR Left Shoulder Exam date and time: 01/11/2024 8:35 AM Age: 58 years old Clinical indication: Pain; Shoulder; Left TECHNIQUE: Imaging protocol: Radiologic exam of the left shoulder. Views: 2 or more views. COMPARISON: MR SHOULDER LT WO CON 02/08/2023 1:23 PM FINDINGS: Bones/joints: Osseous structures of the shoulder are grossly normal. Acromioclavicular joint is without dislocation or fracture. Subacromial space height is normal. Adjacent ribs are normal. clavicle, acromion, and coracoid process appear grossly normal. Mild degenerative changes within the glenohumeral joint. Early osteophytosis inferior aspect humeral head. Soft tissues: Normal. IMPRESSION: Mild degenerative changes within the glenohumeral joint. Early osteophytosis inferior aspect humeral head.
== END 2024-01-11 23:59 | disposition home or self-care (01) ==
LOC: RAD 08:28
PROVIDERS: PCP Family Medicine; Visit Provider Physician Assistant
DX: M25.512 Pain in left shoulder (principal)
CPT/HCPCS: 73030

== ENCOUNTER 2024-03-12 10:00 | Outpatient (RCR) | payer MEDICAID, SELFPAY ==
--- NOTE | 2023-11-23 15:56 | HMH.PTOPWND ---
Rehab Outpt Wound Evaluation Rehab OP Wound Evaluation Start: 11/23/23 15:48 Freq: Status: Active Protocol: Document 11/23/23 15:48 ROYA (Rec: 11/23/23 15:56 ROYA [id number]) E-signed By Hubert Ponce, PT Subjective/History History History This is the initial PT eval for Jeannie Lara, 58 yowf who presents with c/o increasing L UE lymphedema x ~ 6 mos this episode. She has chronic lymphedema of the L UE since L lumpectomy with LN removal due to breast cancer many years ago. She is well known to our clinic and typically responds positively to CDT treatment. She continues to report increasing L shld pain as well with hx of a chronic L RCT. She reports L shld pain is increased with increased swelling and ADL activities. She Reports increased feelings of heaviness throughout the L arm and increased swelling in the L breast. She also recently was hospitalized due to a R side neck abscess ~ 4 mos ago. Subjective Subjective Moderate fibrotic edema in the L UE throughout and in the L breast and axilla areas. She reports pain in the L UE, worse with activity, 3/10. No TTP noted. New diagnosis of cancer in past 12 No months? Lymphedema Eval Classification of Lymphedema Secondary Lymphedema Yes Stemmer's sign Stemmer's Sign yes Stage of Lymphedema Lymphedema stages Stage II (Pitting edema, increased fibrosis w/ decreased pitting) Skin Changes Dry Skin Yes Skin Folds Yes Other Changes Yes Pain Scale Pain Scale (0-10) 3 Affected Extremities Areas Affected by Lymphedema/Edema Left Upper Extremity,Left Breast,Left Axilla Manual Lymphatic Drainage Treatment Area MLD Treatment Area Left Upper Extremity,Left Breast,Left Axilla Wound Problems/Impairments Impairments Problems/Impairmments Impaired Strength,Impaired Endurance,Impaired Lifting, Impaired Household Care, Increased Edema,Lymphedema Present,Subjective C/O Pain, Impaired Self Care/Self Management Prognosis Rehab Potential Good Comment Skilled therapy is necessary to reduce overall edema burden and return pt to PLOF. Clinical Impression Consistent with Diagnosis Yes Short Term Goals Number of Weeks 2 Decrease Lymphedema Yes: Minimal fibrotic edema L UE. Patient to Understand Lymphedema Yes Treatment and Exercises Decrease Girth Measurments by (cm) Yes: L UE by 5 cm total Senior Care Goals Number of Weeks 6-8 Decrease Lymphedema Yes: No fibrotic edema L UE, axilla, and breast. Decrease Subjective C/O Pain Yes: 03/23 L UE Patient to be Ind w/ HEP Yes Patient to be Ind w/ [place] Yes Compression Garments Patient to Adhere Lymphedema Precautions Yes Decrease Girth Measurments by (cm) Yes: L UE total by 20 cm Outpatient Therapy Plan of Care Treatment Plan May Include Therapeutic Exercise Including Home Yes Exercise Program Manual Therapy Techniques Yes Neuromuscular Re-education Yes Therapeutic Activities to Return to Yes Previous Functional/Work Level Orthotics/Bracing/Splinting Yes Manual Lymphatic Drainage Yes Eval/Re-Eval Yes Frequency Times per week 2 Duration Number of Weeks 6-8 Addendums This patient is a candidate for social No or vocational rehab? Patient/Guardian verbally acknowledges Yes understanding of treatment program and consents to further treatment? Patient/Guardian verbally acknowledges Yes understanding of diagnosis, prognosis and goals for treatment? Eval Complexity PT Charges 56954 - High Complexity PHYSICIAN CERTIFICATION: I certify the specified therapy services for Jeannie Lara are required, authorized, and reviewed every 30 days.
--- NOTE | 2023-12-22 15:09 | HMH.RHREAS ---
Rehab Reassessment Rehab OP Re-assessment Start: 11/23/23 15:48 Freq: Status: Active Protocol: Document 12/22/23 15:01 ROYA (Rec: 12/22/23 15:08 PHOALICE [id number]) E-signed By Hubert Ponce, PT Rehab Re-assessment Subjective Subjective My arm feels better and I'm not falling out of my bra like I was Pt reports less difficulty with ADLs as a result of less heaviness in the L UE. Objective Objective Notes Circumferential measurements: L UE total is 2229. cm which is -10.5 cm since IE. Edema: Mild fibrotic edema noted in the R upper arm and axilla. Decreased palpable ridging around the L breast noted. Assessment Progress Assessment Progressing as Expected Assessment Notes Pt has shown significant reduction of overall edema throughout the L UE and breast as noted by circumferential measurements. She continues to need skilled therapy services to further reduce edema and return to PLOF. Patient goals met ST/3 LT/6 Plan Plan Continue per initial POC. Frequency of Therapy 1-2 x/wk Duration of therapy 4 wks Time and Billing Re-Eval Time 11 Re-Eval Billing Units 1 PHYSICIAN CERTIFICATION: I certify the specified therapy services for Jeannie Lara are required, authorized, and reviewed every 30 days.
--- NOTE | 2024-01-19 11:58 | HMH.RHREAS ---
Rehab Reassessment Rehab OP Re-assessment Start: 11/23/23 15:48 Freq: Status: Active Protocol: Document 01/19/24 11:53 [email or web address] (Rec: 01/19/24 11:57 ROYA [id number]) E-signed By Hubert Ponce, PT Rehab Re-assessment Subjective Subjective Pt reports her L shoulder is not as sore after having a an injection in her shoulder due to her rotator cuff tear. She feels this pain has been limiting her ability to decrease her L UE edema independently. Objective Objective Notes Circumferential measurements: L UE total is 226.3 cm which is -7.1 cm since IE. Edema: Mild fibrotic edema noted in the R upper arm and axilla. Decreased palpable ridging around the L breast noted. Assessment Progress Assessment Slower Than Expected Assessment Notes Pt continues to show progress with overall edema reduction in the L UE, L breast, and L axilla. She does continue to have edema worse than typical at this time with an actual increase in circumferential measurements vs last reassessment. Patient goals met ST/ LT/6 Plan Plan Continue per initial POC. Frequency of Therapy 1-2 x/wk Duration of therapy 4 wks Time and Billing Re-Eval Time 10 Re-Eval Billing Units 1 Charge for PT reassessment? Yes Charge for OT reassessment? No PHYSICIAN CERTIFICATION: I certify the specified therapy services for Jeannie Lara are required, authorized, and reviewed every 30 days.
--- NOTE | 2024-02-17 15:58 | HMH.RHREAS ---
Rehab Reassessment Rehab OP Re-assessment Start: 11/23/23 15:48 Freq: Status: Active Protocol: Document 02/17/24 15:53 [email or web address] (Rec: 02/17/24 15:58 ROYA [id number]) E-signed By Hubert Ponce, PT Rehab Re-assessment Subjective Subjective Pt reports she feels better overall, without increased pain in her L shoulder now. She reports her L breast feels less full overall and she has easier time donning/doffing clothes. Objective Objective Notes Circumferential measurements: L UE total is 225.3 cm which is -8.1 cm since IE. Edema: Mild fibrotic edema noted in the R upper arm and axilla. Decreased palpable ridging around the L breast noted. Assessment Progress Assessment Progressing as Expected Assessment Notes Pt continues to show progress with overall edema reduction in the L UE, L breast, and L axilla. Significantly less edema in the L breast this date. She does continue to have edema worse than typical at this time and continues to need skilled treatment to reduce overall edema burden. Patient goals met ST LT/6 Plan Plan Continue per initial POC. Frequency of Therapy 1-2 x/wk Duration of therapy 4 wks Time and Billing Re-Eval Time 11 Re-Eval Billing Units 1 Charge for PT reassessment? Yes PHYSICIAN CERTIFICATION: I certify the specified therapy services for Jeannie Lara are required, authorized, and reviewed every 30 days.
== END 2024-03-12 23:59 | disposition home or self-care (01) ==
LOC: PT 10:00
PROVIDERS: Visit Provider Physician Assistant
DX: I89.0 Lymphedema, not elsewhere classified (principal)
CPT/HCPCS: 97140; 97163; 97164

== ENCOUNTER 2024-03-26 09:55 | Outpatient (CLI) | payer MEDICAID, SELFPAY ==
[2024-03-26 18:17] LABS: Basophils # 0.1 K/mm3 (0-0.2); Basophils % 0.6 % (0.1-2.0); Eosinophils % 0.4 % (0.1-12.0); Hematocrit 42.1 % (37.0-47.0); Hemoglobin 13.6 g/dL (12.2-16.2); Lymphocytes # 2.5 K/mm3 (0.7-4.5); Lymphocytes % 24.8 % (10-50); Mean Corpuscular HGB Conc 32.3 g/dL (31.8-35.4); Mean Corpuscular Volume 92.9 fl (81-99); Mean Platelet Volume 11.4 fl (7.4-10.4); Monocytes # 0.8 K/mm3 (0.1-1.0); Monocytes % 8.2 % (1.7-9.3); Neutrophils # 6.5 K/mm3 (1.8-7.8); Neutrophils % 65.6 % (37.0-80.0); Platelet Count 337 K/mm3 (142-424); Red Blood Count 4.53 M/mm3 (4.20-5.40); Red Cell Distribution Width 14.3 % (11.5-17.5); White Blood Count 9.9 K/mm3 (4.8-10.8)
[2024-03-26 19:21] LABS: Alanine Aminotransferase 29 U/L (12-78); Albumin Level 4.7 g/dl (3.5-5.0); Albumin/Globulin Ratio 1.3 (1.1-1.8); Alkaline Phosphatase 90 U/L (38-126); Anion Gap 14.2 mEq/L (5-15); Aspartate Amino Transferase 40 U/L (14-36); Bilirubin,Total 0.4 mg/dl (0.2-1.3); Blood Urea Nitrogen 18 mg/dl (7-17); Calcium 10.4 mg/dl (8.4-10.2); Carbon Dioxide 32 mmol/L (22.0-30.0); Chloride 100 mmol/L (98-107); Chol/HDL Ratio 2.4 (1-3.5); Cholesterol 191 mg/dl (140-200); Estimated Glomerular Filt Rate 51 ml/min (>60); GFR (African American) 61 ML/MIN (>60); Globulin 3.5 g/dL (1.3-3.2); Glucose 102 mg/dl (74-100); HDL Cholesterol 80 mg/dl (40-60); Potassium 5.2 mmoL/L (3.5-5.1); Sodium 141 mmol/L (136-145); Total Protein,Serum 8.2 g/dl (6.3-8.2); Triglycerides 144 mg/dl (30-150); VLDL Cholesterol 29 mg/dL (0-40)
[2024-03-26 19:32] LABS: Direct LDL Cholesterol 85.59 mg/dL (100-129)
[2024-03-26 19:51] LABS: Hemoglobin A1C 5.7 % (4.0-6.0)
== END 2024-03-26 23:59 | disposition home or self-care (01) ==
LOC: LAB.DROPOF 03-27 13:56
PROVIDERS: PCP Family Medicine; Visit Provider Family Medicine
DX: Z13.1 Encounter for screening for diabetes mellitus (principal); R63.5 Abnormal weight gain; R73.09 Other abnormal glucose; E78.5 Hyperlipidemia, unspecified; I89.0 Lymphedema, not elsewhere classified; Z68.32 Body mass index [BMI] 32.0-32.9, adult
CPT/HCPCS: 80053; 80061; 83036; 84443; 85025

== ENCOUNTER 2024-04-03 09:22 | Outpatient (CLI) | payer MEDICAID, SELFPAY ==
[2024-04-03 10:32] LABS: Anion Gap 14.2 mEq/L (5-15); Blood Urea Nitrogen 16 mg/dl (7-17); Calcium 9.6 mg/dl (8.4-10.2); Carbon Dioxide 34 mmol/L (22.0-30.0); Chloride 96 mmol/L (98-107); Estimated Glomerular Filt Rate 64 ml/min (>60); GFR (African American) 77 ML/MIN (>60); Glucose 98 mg/dl (74-100); Potassium 4.2 mmoL/L (3.5-5.1); Sodium 140 mmol/L (136-145)
== END 2024-04-03 23:59 | disposition home or self-care (01) ==
LOC: LAB 09:23
PROVIDERS: PCP Family Medicine; Visit Provider Family Medicine
DX: E87.5 Hyperkalemia (principal)
CPT/HCPCS: 36415; 80048

== ENCOUNTER 2024-04-05 15:38 | Outpatient (RCR) | payer MEDICAID, SELFPAY ==
--- NOTE | 2024-04-05 16:37 | HMH.RHREAS ---
Rehab Reassessment Rehab OP Re-assessment Start: 04/05/24 16:23 Freq: Status: Active Protocol: Document 04/05/24 16:23 ROYA (Rec: 04/05/24 16:37 PHORDIONNE [id number]) E-signed By Hubert Ponce, PT Rehab Re-assessment Subjective Subjective Pt reports her L shoulder feels less sore overall and she feels she is better with her overall edema of the L UE. Objective Objective Notes Circumferential measurements: L UE total is 225.7 cm which is -7.7 cm since IE. Edema: Mild fibrotic edema noted in the R upper arm and axilla. Decreased palpable ridging around the L breast noted. Assessment Assessment Notes Pt continues to show progress with overall edema reduction in the L UE, L breast, and L axilla vs initial evaluation. Significantly less edema in the L breast again this date. She does continue to have edema worse than typical at this time and continues to need skilled treatment to reduce overall edema burden. Patient goals met ST LT/6 Plan Plan Continue per initial POC Frequency of Therapy 1 x/wk Duration of therapy 3-4 wks Time and Billing Re-Eval Time 9 Re-Eval Billing Units 1 Charge for PT reassessment? Yes PHYSICIAN CERTIFICATION: I certify the specified therapy services for Jeannie Lara are required, authorized, and reviewed every 30 days.
== END 2024-04-05 23:59 | disposition home or self-care (01) ==
LOC: PT 15:38
PROVIDERS: Visit Provider Physician Assistant
DX: I89.0 Lymphedema, not elsewhere classified (principal)
CPT/HCPCS: 97140; 97164

== ENCOUNTER 2024-04-13 15:38 | Outpatient (CLI) | payer MEDICAID, SELFPAY | END 2024-04-13 23:59 | disposition home or self-care (01) | LOC: LAB.DROPOF 04-14 08:41 | PROVIDERS: PCP Family Medicine; Visit Provider Family Medicine | DX: M79.10 Myalgia, unspecified site (principal) | CPT/HCPCS: 86140 ==

== ENCOUNTER 2024-04-17 11:07 | Outpatient (CLI) | payer MEDICAID, SELFPAY ==
[2024-04-17 11:54] LABS: Basophils # 0.1 K/mm3 (0-0.2); Basophils % 0.6 % (0.1-2.0); Eosinophils % 0.3 % (0.1-12.0); Hematocrit 38.2 % (37.0-47.0); Hemoglobin 12.5 g/dL (12.2-16.2); Lymphocytes # 2.1 K/mm3 (0.7-4.5); Lymphocytes % 20.2 % (10-50); Mean Corpuscular HGB Conc 32.7 g/dL (31.8-35.4); Mean Corpuscular Hemoglobin 29.6 pg (27.0-31.2); Mean Corpuscular Volume 90.5 fl (81-99); Mean Platelet Volume 10.9 fl (7.4-10.4); Monocytes # 0.7 K/mm3 (0.1-1.0); Monocytes % 6.3 % (1.7-9.3); Neutrophils # 7.4 K/mm3 (1.8-7.8); Platelet Count 303 K/mm3 (142-424); Red Blood Count 4.22 M/mm3 (4.20-5.40); Red Cell Distribution Width 13.8 % (11.5-17.5); White Blood Count 10.3 K/mm3 (4.8-10.8)
== END 2024-04-17 23:59 | disposition home or self-care (01) ==
LOC: LAB 11:08
PROVIDERS: PCP Family Medicine; Visit Provider Family Medicine
DX: M79.10 Myalgia, unspecified site (principal)
CPT/HCPCS: 36415; 85025

== ENCOUNTER 2024-04-24 09:34 | Outpatient (CLI) | payer MEDICAID, SELFPAY ==
--- NOTE | 2024-04-24 09:37 | XR_ITS ---
FINAL REPORT CLINICAL HISTORY: trauma, right elbow COMPARISON: None FINDINGS: RIGHT ELBOW 4 views were obtained. There is no acute fracture or dislocation. There is no joint effusion. There are mild degenerative changes within the medial elbow joint. There are probable small loose bodies measuring up to 3 mm. There is no soft tissue abnormality. IMPRESSION: Degenerative changes with small loose bodies without acute bony abnormality. Reviewed, Interpreted and Dictated by Tian Jose MD Transcribed by Chikis Hampton Authenticated and . [facility]
--- NOTE | 2024-04-24 11:19 | XR_ITS ---
FINAL REPORT CLINICAL HISTORY: right shoulder pain COMPARISON: None FINDINGS: RIGHT SHOULDER Two views show no evidence of acute displaced fracture or dislocation of the visualized bony architecture. There there are minimal degenerative changes. IMPRESSION: No acute findings. Reviewed, Interpreted and Dictated by Tian Jose MD Transcribed by Jane Huston Authenticated and [facility]
== END 2024-04-24 23:59 | disposition home or self-care (01) ==
LOC: RAD 09:35
PROVIDERS: PCP Family Medicine; Visit Provider Family Medicine
DX: M25.521 Pain in right elbow (principal); M25.511 Pain in right shoulder
CPT/HCPCS: 73030; 73080

== ENCOUNTER 2024-04-26 11:00 | Outpatient (RCR) | payer MEDICAID, SELFPAY | END 2024-04-26 23:59 | disposition home or self-care (01) | LOC: PT 11:00 | PROVIDERS: PCP Family Medicine; Visit Provider Family Medicine | DX: I89.0 Lymphedema, not elsewhere classified (principal) | CPT/HCPCS: 97140 ==

== ENCOUNTER 2024-05-01 07:57 | Outpatient (CLI) | payer MEDICAID, SELFPAY ==
--- NOTE | 2024-05-01 07:59 | CA_ITS ---
FINAL REPORT TECHNIQUE: Palafox scale, color and spectral doppler images of the bilateral carotid arteries were obtained. CLINICAL HISTORY: KECIA FINDINGS: DUPLEX SCAN OF CAROTID ARTERIES MAGALI The peak systolic velocity of the right common carotid artery is 92.0 cm/s. The peak systolic velocity of the right internal carotid artery is 88.8 cm/s and end diastolic velocity 31.0 cm/s. The ICA/CCA ratio is 1.08. There is no evidence of plaque on the right. The right external carotid artery is patent. The right vertebral artery is patent with antegrade flow. The peak systolic velocity of the left common carotid artery is 88.8 cm/s. The peak systolic velocity of the left internal carotid artery is 110.1 cm/s and end diastolic velocity 25.7 cm/s. The ICA/CCA ratio is 1.75. Plaque is noted at the carotid bulb. The left external carotid artery is patent.The left vertebral artery is patent with antegrade flow. IMPRESSION: Less than 50% bilateral carotid stenoses. Bilateral patent vertebral arteries with antegrade flow. If indicated, CTA or MRA could further evaluate. Reviewed, Interpreted and Dictated by Traci Alvarado MD Transcribed by Jane Huston Authenticated and [facility]
--- NOTE | 2024-05-01 08:19 | MR_ITS ---
FINAL REPORT TECHNIQUE: Multiplanar and multisequence imaging of the brain was obtained before and after contrast administration. CLINICAL HISTORY: arachnoid cyst on prior exam pt stated cyst has been there x 7 years recent headaches COMPARISON: None FINDINGS: There are few scattered subcortical foci of T2 abnormality. The posterior fossa is without acute abnormality. There is a lesion in the left CP angle which follows CSF signal intensity measuring 24 mm on axial images, likely the known arachnoid cyst. Posterior fossa is otherwise without acute abnormality. No diffusion abnormality is identified. The soft tissues are without acute abnormality. Post contrast imaging: No pathologic enhancement. IMPRESSION: No acute intracranial abnormality and no pathologic contrast enhancement. Lesion in the left CP angle most consistent with arachnoid cyst. Without comparison imaging, stability can not be determined. Few scattered nonspecific subcortical foci of T2 abnormality. Given patient's age, this is favored to represent chronic small-vessel ischemia. Reviewed, Interpreted and Dictated by Traci Alvarado MD Transcribed by Chikis Hampton Authenticated and [facility]
[2024-05-01] MEDS: GADOTERIDOL INJ 20ML SYRINGE 17 ML IV (09:17)
[2024-05-01] MEDS: SODIUM CHLORIDE 0.9% 10ML SYR (RAD ONLY) 10 ML IV (09:17)
== END 2024-05-01 23:59 | disposition home or self-care (01) ==
LOC: RT 07:57
PROVIDERS: PCP Family Medicine; Visit Provider Family Medicine
DX: I65.23 Occlusion and stenosis of bilateral carotid arteries (principal); G93.0 Cerebral cysts
CPT/HCPCS: 70553; 93880; A9576

== ENCOUNTER 2024-06-29 08:45 | Outpatient (CLI) | payer MEDICAID, SELFPAY ==
--- OUTSIDE RECORDS SUMMARY | 2024-06-29 08:47 | XMS_ITS | Clinical Summary ---
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 She has outside imaging and is here to go over those results. I have reviewed the MR images in the office with her today. Her MR images reveals a partial thickness rotator cuff tear with glenohumeral arthritis. I have discussed treatment options in the office with her today. Her images do not warrant surgical intervention. I recommend that we proceed with a corticosteroid injection. I have discussed risks and benefits of the injection. Consent was given to proceed. I have answered all questions in the office with her today. I will ahve her follow up in three months with Harman Scott PA-C. INJECTION: intra articular The risk and benefits of the injection were outlined to the patient. They understand these and wished to proceed. The anterior portion of the shoulder over the glenohumeral joint was prepped with alcohol and Betadine. Using a 27-gauge needle and 5 cc syringe I pierced the skin breaching the anterior joint capsule. I then aspirated to confirm no presence of a vascular bed I then injected a solution of 40 mg Kenalog / 2 cc of lidocaine/2 cc of Marcaine into the joint. The patient tolerated this procedure well. - Last Documented On 10/12/2022 12:34PM ; [facility], [facility] Instructions to patient Lose weight Last Documented On 3 12:55PM ; [facility], [facility] Assessments Includes: Assessments from this encounter Findings - Overweight - Last Documented On 10/12/2022 12:34PM ; [facility], [facility] glenohumeral arthritis - Last Documented On 10/12/2022 12:34PM ; [facility], [facility] partial thickness rotator cuff tear - Last Documented On 10/12/2022 12:34PM ; [facility], [facility] Instructions Includes: Instructions from this encounter Instructions to patient Lose weight Last Documented On 3 12:55PM ; [facility], [facility] Medical Equipment - Implanted Devices Includes: Current Devices No Medical Equipment Recorded Medications Includes: Medications discussed during this encounter and other current Medications Current Medications (continue as prescribed) clonazePAM 1 MG Oral Tablet 10/06/2022 Provider: Derrick Mccollum MD Diagnosis: Last Documented On 3 12:50PM By Amaris Moralez [facility] Cyclobenzaprine HCl 10 MG Oral Tablet 10/06/2022 Pro vider: Diagnosis: Last Documented On 3 12:50PM By Amaris Moralez [facility] Valsartan 40 MG Oral Tablet 10/06/2022 Provider: Diagnosis: Last Documented On 3 12:50PM By Amaris Moralez [facility] Aspirin Low Dose 81 MG Oral Tablet Delayed Release Provider: Diagnosis: Last Documented On 3 12:50PM By Amaris Moralez [facility] predniSONE 20 MG Oral Tablet 10/06/2022 Provider: Diagnosis: Last Documented On 3 12:50PM By Amaris Moralez [facility] Atorvastatin Calcium 20 MG Oral Tablet 10/06/2022 Pr ovider: Diagnosis: Last Documented On 3 12:50PM By Amaris Moralez [facility] Alendronate Sodium 70 MG Oral Tablet 10/06/2022 Prov ider: Diagnosis: Last Documented On 3 12:50PM By Amaris Collins ; [facility] Medications Administered Includes: Administered Medications from this encounter No Administered Medications Recorded Vital Signs Includes: Vital Signs from this encounter Vital Name 10/06/2022 12:54P Height (in) 64 Weight (lb) 182 Body Mass Index 31.2 Body Surface Area 1.9 Note: hdv Last Documented: On 10/06/2022 12:55P M ; [facility], [facility] Results Includes: Results discussed during this encounter No Results Recorded For Specified Dates History of Present Illness Includes: History of Present Illness from this encounter TANIA Lara is a 57 year old female. - Allergy list reviewed - Problem list reviewed - Medication list reviewed - Previous history of new onset pain approximately 2 years ago after tearing the rotator cuff - Sharp pain Symptoms - Pain is constant (100% of the time) - Pain is throbbing - Pain is dull, aching - Patient pain level from 1-10: 8 Pain is worse with every day tasks. Nothing makes the pain better - Yes, previous treatment. Duque - History of Physical Therapy - History of Injections 57 year old female presents in the office to be seen for her left shoulder. She has outside imaging and is here to go over those results. She has been having shoulder pain for a couple of years. She states that the pain has been constant. She states that she had a previous corticosteroid injection back in February 2022. She has lymphedema from breast cancer. Social History Description Last Updated Caffeine use 10/06/2022 Last Documented On 3 12:34PM ; [facility], [facility] Exercising regularly 10/06/2022 Last Documented On 3 12:34PM ; [facility], [facility] Not a current smoker. 10/06/2022 Last Documented On 3 12:34PM ; [facility], [facility] Not using alcohol 10/06/2022 Last Documented On 3 12:34PM ; [facility], [facility] Not using drugs 10/06/2022 Last Documented On 3 12:34PM ; [facility], [facility] Recent change in diet 10/06/2022 Last Documented On 3 12:34PM ; [facility], [facility] Tobacco non-user 10/06/2022 Last Documented On 3 12:34PM ; [facility], [facility] Smoking Status Unknown Procedures and Surgical History Includes: Procedures from this encounter Procedures Code Diagnosis Performing Provider Service L ocation Service Date use of tobacco assessment performed 1000F Last Documented On 3 12:55PM ; [facility], [facility] review of medications documented 1160F Last Documented On 3 12:34PM ; [facility], [facility] an X-ray was performed [id number] Last Documented On 3 3:33PM ; [facility], [facility] an MRI was performed [id number] Last Documented On 3 3:33PM ; [facility] Surgical History Last Updated History of heart surgery 10/06/2022 Last Documented On 3 12:34PM ; [facility] Past Surgical History: 3x c- section, skin sx, bladder sx, heart cath placements 10/06/2022 Last Documented On 3 12:34PM ; [facility], [facility] Medical History Includes: Medical History addressed during this encounter Description Last Updated History of arthritis 10/06/2022 Last Documented On 3 12:34PM ; [facility] History of Fractures 10/06/2022 Last Documented On 3 12:34PM ; [facility], [facility] History of Heart Attack 10/06/2022 Last Documented On 3 12:34PM ; [facility] History of heart disease 10/06/2022 Last Documented On 3 12:34PM ; [facility] History of Heartburn / Acid Reflux 10/06 Last Documented On 3 12:34PM ; [facility] History of History of Cancer 10/06/2022 Last Documented On 3 12:34PM ; [facility] History of Irregular Heartbeat 3 Last Documented On 3 12:34PM ; [facility] History of osteoporosis 10/06/2022 Last Documented On 3 12:34PM ; [facility] History of Previous Fractures 10/06/2022 Last Documented On 3 12:34PM ; [facility], [facility] Family History Includes: Family History addressed during this encounter Description Last Updated Diabetes mellitus 10/06/2022 Last Documented On 3 12:34PM ; [facility] Family history of cancer 10/06/2022 Last Documented On 3 12:34PM ; [facility] Family history of heart disease 10/07/19 Last Documented On 3 12:34PM ; [facility] Family history of osteoporosis 3 Last Documented On 3 12:34PM ; [facility] Family history of rheumatoid arthritis 0 10/06/2022 Last Documented On 3 12:34PM ; [facility] Family history of systemic hypertension 10/06/2022 Last Documented On 3 12:34PM ; [facility] Review of Systems Includes: Review of Systems from this encounter Systemic: Not feeling tired, no recent weight loss, and no recent weight gain. Head: No headache and no sinus pain. Eyes: No vision problems and no Cataracts. Glasses/Contacts and Glaucoma. Otolaryngeal: No hearing loss and no tinnitus. Cardiovascular: No chest pain or discomfort, no palpitations, no Hypertension, and no High Cholesterol. Pulmonary: No daytime asthma symptoms. Chronic cough and wheezing. Gastrointestinal: Heartburn. No abdominal pain. No Indigestion, no Acid Reflux, no Peptic Ulcer, no GI Stomach Bleed, and no Ulcers. Endocrine: No hot flashes, no muscle weakness, no Diabetes, no Hypothyroid, and no Hyperthyroid. Hematologic: No easy bleeding, no tendency for easy bruising, and no Anemia. Musculoskeletal: Arthritis and lower back pain. No soft tissue swelling. Pain localized to one or more joints. Neurological: No dizziness, no convulsions, and no numbness. Psychological: Anxiety. No emotional lability, no depression, and no insomnia. Not crying for no reason. Skin: No dry skin. No Ulcers. Scars. No rash. Allergic and Immunologic: Complaint of seasonal allergic reaction. Mental Status Includes: Mental Status from this encounter Description Anxiety Functional Status Includes: Functional Status from this encounter No Functional Status Recorded Physical Exam Includes: Physical Exam from this encounter Allergies Includes: Active Allergies No Known Allergies Encounters Encounter Provider Location Date Check-In Time Check-Out Time Diagnosis Physician Specified Jose Glez MD [facility] 10/07/19 12:43PM 1:04PM Overweight Insurance Includes: Active Insurance Policies Plan Name Member ID Group # Subscriber Relationship Effect osbaldo Dates 1 - [facility] [id number] Jeannie Lara Self Clinical Notes Includes: Clinical Notes from this encounter * Progress note Date Encounter Last Documented by 10/06/2022 Physician Specified Last michael west on 10/12/2022; 12:34 PM, Jose Glez MD; [facility], [facility] Active Problems & Conditions - Joint Pain, Localized in the Left Shoulder Chief Complaint The Chief Complaint is: Left shoulder pain. Referred Here Referred by self. History of Present Illness Jeannie Lara is a 57 year old female. - Allergy list reviewed - Problem list reviewed - Medication list reviewed - Previous history of new onset pain approximately 2 years ago after tearing the rotator cuff - Sharp pain Symptoms - Pain is constant (100% of the time) - Pain is throbbing - Pain is dull, aching - Patient pain level from 1-10: 8 Pain is worse with every day tasks. Nothing makes the pain better - Yes, previous treatment. Duque - History of Physical Therapy - History of Injections 57 year old female presents in the office to be seen for her left shoulder. She has outside imaging and is here to go over those results. She has been having shoulder pain for a couple of years. She states that the pain has been constant. She states that she had a previous corticosteroid injection back in February 2022. She has lymphedema from breast cancer. Current Medication - Alendronate Sodium 70 MG Oral Tablet take as directed 56 days, 0 refills - Aspirin Low Dose 81 MG Oral Tablet Delayed Release take as directed 30 days, 0 refills - Atorvastatin Calcium 20 MG Oral Tablet take as directed 30 days, 0 refills - clonazePAM 1 MG Oral Tablet take as directed 30 days, 0 refills - Cyclobenzaprine HCl 10 MG Oral Tablet take as directed 30 days, 0 refills - predniSONE 20 MG Oral Tablet take as directed 5 days, 0 refills - Valsartan 40 MG Oral Tablet take as directed 30 days, 0 refills Past Medical/Surgical History Reported: History of Fractures and History of Heart Attack. Diagnoses: Heart disease. History of Cancer Irregular Heartbeat Heartburn / Acid Reflux. Osteoporosis. Arthritis Procedural: - Previous Fractures Surgical: - Heart surgery - Past Surgical History: 3x , skin sx, bladder sx, heart cath placements Social History Not a current smoker. Current diet: Recent change in diet. Caffeine use: Caffeine use. Tobacco use: Tobacco non-user. Alcohol: Not using alcohol. Drug Use: Not using drugs. Habits: Exercising regularly. Allergies - No Known Allergies Family History Cancer Heart disease Diabetes mellitus Systemic hypertension Osteoporosis Rheumatoid arthritis Review Of Systems Systemic: Not feeling tired, no recent weight loss, and no recent weight gain. Head: No headache and no sinus pain. Eyes: No vision problems and no Cataracts. Glasses/Contacts and Glaucoma. Otolaryngeal: No hearing loss and no tinnitus. Cardiovascular: No chest pain or discomfort, no palpitations, no Hypertension, and no High Cholesterol. Pulmonary: No daytime asthma symptoms. Chronic cough and wheezing. Gastrointestinal: Heartburn. No abdominal pain. No Indigestion, no Acid Reflux, no Peptic Ulcer, no GI Stomach Bleed, and no Ulcers. Endocrine: No hot flashes, no muscle weakness, no Diabetes, no Hypothyroid, and no Hyperthyroid. Hematologic: No easy bleeding, no tendency for easy bruising, and no Anemia. Musculoskeletal: Arthritis and lower back pain. No soft tissue swelling. Pain localized to one or more joints. Neurological: No dizziness, no convulsions, and no numbness. Psychological: Anxiety. No emotional lability, no depression, and no insomnia. Not crying for no reason. Skin: No dry skin. No Ulcers. Scars. No rash. Allergic and Immunologic: Complaint of seasonal allergic reaction. Physical Findings - Vitals taken 10/06/2022 12:54 pm hdv Height 64 in Weight 182 lbs Body Mass Index 31.2 kg/m2 Body Surface Area 1.9 m2 PATIENT ALERTED AND ORIENTED X 3 SHOULDER LEFT: INSPECTION: ATROPHY: DEFORMITY: ROM: PFE: 120 degrees PER: 60-65 degrees PIR: AFE: 120 degrees AER: 50 degrees AIR: L1 IMPINGEMENT: STRENGTH: (ROTATOR CUFF) EMPTY CAN: 5/5 EXTERNAL ROTATION: 5/5 SPECIAL TESTING: BELLY PRESS: negative BEAR HUG: LIFT OFF: deferred SPEEDS: negative NEURO/VASCULAR SENSATION: normal AXILLARY: LABC: RADIAL: MEDIAN: ULNAR: MOTOR: normal DELTOID: BICEPS: TRICEPS: EPL: FPL: IO: PULSES: normal RADIAL: ULNAR: Tests MR shoulder (left): Mild to moderate glenohumeral arthritis with a small inferior humeral osteophyte. There is associated changes at the labrum consistent with glenohumeral arthritis there is partial-thickness supraspinatus tear. Assessment - Overweight glenohumeral arthritis partial thickness rotator cuff tear Previous Tests Imaging: X-Ray: An X-ray was performed. MRI Scan: An MRI was performed. Counseling/Education - Lose weight Plan 57 year old female presents in the office to be seen for her left shoulder. She has outside imaging and is here to go over those results. I have reviewed the MR images in the office with her today. Her MR images reveals a partial thickness rotator cuff tear with glenohumeral arthritis. I have discussed treatment options in the office with her today. Her images do not warrant surgical intervention. I recommend that we proceed with a corticosteroid injection. I have discussed risks and benefits of the injection. Consent was given to proceed. I have answered all questions in the office with her today. I will ahve her follow up in three months with Harman Scott PA-C. INJECTION: intra articular The risk and benefits of the injection were outlined to the patient. They understand these and wished to proceed. The anterior portion of the shoulder over the glenohumeral joint was prepped with alcohol and Betadine. Using a 27-gauge needle and 5 cc syringe I pierced the skin breaching the anterior joint capsule. I then aspirated to confirm no presence of a vascular bed I then injected a solution of 40 mg Kenalog / 2 cc of lidocaine/2 cc of Marcaine into the joint. The patient tolerated this procedure well. Notes This dictation was done with voice recognition software and may contain errors and omissions. transcribed by Amaris Collins Practice Management Use of tobacco assessment performed Review of medications documented. Care Team - Tatianna Howard PA-C
--- OUTSIDE RECORDS SUMMARY | 2024-06-29 08:47 | XMS_ITS ---
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 Role Phone Grupo MCCULLOUGH, Rajendra Loco Unavailable [phone] Tatianna Howard PA-C Unavailable [phone] Problems Includes: Active, inactive, and resolved Problems All Visits Onset Date Resolved Date Provider Condition S tatus Joint Pain, Localized in the Left Shoulder 10/06/2022 Jose rivera MD Active Last Documented On 3 12:49PM ; [facility] Plan of Treatment Instructions to patient Lose weight Last Documented On 3 12:55PM ; [facility] Assessments Includes: Assessments for all patient encounters Findings Encounter Date Overweight Physician Specified with Jose Glez MD 10/06/2022 Last Documented On 3 12:34PM ; [facility] Instructions Includes: Instructions for all patient encounters Instructions to patient Lose weight Last Documented On 3 12:55PM ; [facility] Medical Equipment - Implanted Devices Includes: Current and historical Devices No Medical Equipment Recorded Medications Includes: Current and historical Medications Current Medications (continue as prescribed) clonazePAM 1 MG Oral Tablet 10/06/2022 Provider: Derrick Mccollum MD Diagnosis: Last Documented On 3 12:50PM By Amaris Collins ; [facility] Cyclobenzaprine HCl 10 MG Oral Tablet 10/06/2022 Pro vider: Diagnosis: Last Documented On 3 12:50PM By Amaris Moralez [facility] Valsartan 40 MG Oral Tablet 10/06/2022 Provider: Diagnosis: Last Documented On 3 12:50PM By Amaris Collins ; [facility] Aspirin Low Dose 81 MG Oral Tablet Delayed Release Provider: Diagnosis: Last Documented On 3 12:50PM By Amaris Collins ; [facility] predniSONE 20 MG Oral Tablet 10/06/2022 Provider: Diagnosis: Last Documented On 3 12:50PM By Amaris Collins ; [facility] Atorvastatin Calcium 20 MG Oral Tablet 10/06/2022 Pr ovider: Diagnosis: Last Documented On 3 12:50PM By Amaris Collins ; [facility] Alendronate Sodium 70 MG Oral Tablet 10/06/2022 Prov ider: Diagnosis: Last Documented On 3 12:50PM By Amaris Collins ; [facility] Medications Administered Includes: Administered Medications in patient's chart No Administered Medications Recorded Results Includes: Results from 06/30/2023 through 06/29/2024 No Results Recorded For Specified Dates History of Present Illness History of Present Illness not supported for this document type No History of Present Illness Recorded Social History Description Last Updated Caffeine use 10/06/2022 Last Documented On 3 12:34PM ; [facility] Exercising regularly 10/06/2022 Last Documented On 3 12:34PM ; [facility] Not a current smoker. 10/06/2022 Last Documented On 3 12:34PM ; [facility] Not using alcohol 10/06/2022 Last Documented On 3 12:34PM ; [facility] Not using drugs 10/06/2022 Last Documented On 3 12:34PM ; [facility] Recent change in diet 10/06/2022 Last Documented On 3 12:34PM ; [facility] Tobacco non-user 10/06/2022 Last Documented On 3 12:34PM ; [facility], [facility] Smoking Status Unknown Procedures and Surgical History Surgical History Last Updated History of heart surgery 10/06/2022 Last Documented On 3 12:34PM ; [facility], [facility] Past Surgical History: 3x c- section, skin sx, bladder sx, heart cath placements 10/06/2022 Last Documented On 3 12:34PM ; [facility] Medical History Includes: Medical History in patient's chart Description Last Updated History of arthritis 10/06/2022 Last Documented On 3 12:34PM ; [facility] History of Fractures 10/06/2022 Last Documented On 3 12:34PM ; [facility] History of Heart Attack 10/06/2022 Last Documented On 3 12:34PM ; [facility] History of heart disease 10/06/2022 Last Documented On 3 12:34PM ; [facility] History of Heartburn / Acid Reflux 10/06 Last Documented On 3 12:34PM ; [facility] History of History of Cancer 10/06/2022 Last Documented On 3 12:34PM ; [facility] History of Irregular Heartbeat 3 Last Documented On 3 12:34PM ; [facility] History of osteoporosis 10/06/2022 Last Documented On 3 12:34PM ; [facility] History of Previous Fractures 10/06/2022 Last Documented On 3 12:34PM ; [facility] Family History Includes: Family History in patient's chart Description Last Updated Diabetes mellitus 10/06/2022 Last Documented On 3 12:34PM ; [facility] Family history of cancer 10/06/2022 Last Documented On 3 12:34PM ; [facility] Family history of heart disease 10/07/19 23 Last Documented On 3 12:34PM ; [facility] Family history of osteoporosis 3 Last Documented On 3 12:34PM ; [facility] Family history of rheumatoid arthritis 0 10/06/2022 Last Documented On 3 12:34PM ; [facility] Family history of systemic hypertension 10/06/2022 Last Documented On 3 12:34PM ; [facility] Review of Systems Review of Systems not supported for this document type No Review of Systems Recorded Mental Status Description Anxiety Functional Status No Functional Status Recorded Physical Exam Physical Exam not supported for this document type No Physical Exam Recorded Allergies Includes: Active, inactive, and resolved Allergies No Known Allergies Insurance Includes: Active Insurance Policies Plan Name Member ID Group # Subscriber Relationship Effect osbaldo Dates 1 - [facility] [id number] Jeannie Lara Self Clinical Notes Includes: Signed Clinical Notes starting from 02/25/2022 No Clinical Notes Recorded
--- OUTSIDE RECORDS SUMMARY | 2024-06-29 08:47 | XMS_ITS ---
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
--- NOTE | 2024-06-29 09:15 | XR_ITS ---
FINAL REPORT TECHNIQUE: Bone densitometry calculations of the lumbar spine and left hip were obtained. CLINICAL HISTORY: osteoporosis COMPARISON: None FINDINGS: Using L1-4, the bone mineral density of the spine is 0.988 g/cm2, corresponding to T-score of -0.5. Using the left hip, the bone mineral density of the femoral neck is 0.624 g/cm2, corresponding to a T-score of -2.0. Using the right hip, the bone mineral density of the femoral neck is 0.607 g/cm?, corresponding to a T-score of -2.2. NOTE: T-score: Standard deviation compared with peak bone mass of young adult mean. *Following the recommendations of the International Society of Bone densitometry, classification of hip BMD is based on the lower of two T-scores; total hip or femoral neck. IMPRESSION: Diminished bone mineral density of the bilateral hips consistent with osteopenia. Normal bone mineral density of the lumbar spine although this is likely artificially elevated secondary to bony sclerosis. Reviewed, Interpreted and Dictated by Juancarlos Krishna MD Transcribed by Kaylan Rossi Authenticated and [facility]
== END 2024-06-29 23:59 | disposition home or self-care (01) ==
LOC: RAD 08:45
PROVIDERS: PCP Family Medicine; Visit Provider Family Medicine
DX: M81.0 Age-related osteoporosis without current pathological fracture (principal)
CPT/HCPCS: 77080

== ENCOUNTER 2024-08-08 10:53 | Day surgery (SDC) | payer MEDICAID, SELFPAY ==
[2024-08-08 11:09] VITALS: BP 127/89; PULSE 91; RESP 16; TEMP 36.2; O2SAT 98; BMI 33.5
[2024-08-08] MEDS: LACTATED RINGERS 1000ML 1,000 ML 50 ML IV (11:31)
--- NOTE | 2024-08-08 11:45 | P.HP_ITS ---
History of Present Illness *Admission Date: 08/08/24 *Reason for visit:: Bright red rectal bleeding, change in bowel habits *History of present illness: Mrs. Lara is a 59-year-old female who is here for diagnostic colonoscopy. The patient has had the new onset of some bright red rectal bleeding. She has had worsening constipation over the last year. The examination is deemed medically necessary for diagnostic colonoscopy. The patient has been seen, interviewed and examined prior to the procedure by both myself and the anesthesia provider. [facility] Disclaimer: The information contained in this section may have been updated after the patient was seen, as this information can be updated by other users. Medical History Osteoporosis Acute maxillary sinusitis Arachnoid cyst of posterior cranial fossa Hearing loss Hyperkalemia ETD (eustachian tube dysfunction) Right chronic serous otitis media Parotid gland enlargement Tear of supraspinatus tendon LV dysfunction Abnormal echocardiogram Abnormal electrocardiogram [ECG] [EKG] Coronary artery disease Former smoker Paroxysmal A-fib Stenosis of carotid artery Rotator cuff strain Lymphoma Chronic pain DDD (degenerative disc disease), cervical Colon cancer screening Breast tumor Degenerative disc disease, cervical Degenerative disc disease, lumbar Lymphedema of left upper extremity Subarachnoid cyst Surgical History H/O parotidectomy (~06/2023) History of cardiac catheterization History of bladder surgery History of lumpectomy of left breast Family History Other Family history of cancer Family history of heart disease Social History (Updated 08/08/24 @ 11:20 by Raina Babin RN) Smoking Status: Former smoker second hand exposure: No alcohol intake: never substance use type: denies use current occupational status: retired Travel in the last 8 weeks?: None household members: spouse housing: house current occupational exposures/hazards: No caffeine: Yes Have you lived/traveled outside US in past 30 days?: No Contact w/someone who lives/traveled outside US past 30 days?: No Exposure to someone with infectious disease in past 14 days?: No Do you have a fever (greater than 100.4 F or 38 C)?: No Have you tested positive for COVID-19?: No Exposed to someone with COVID-19 in past 14 days?: No Do you have a sore throat?: No Do you have a cough?: No Do you have any weakness?: No Are you experiencing any nausea/vomitting?: No Do you have any diarrhea?: No Are you experiencing any unusual bleeding?: No Do you have any muscle aches/pain?: No Do you have any abdominal pain?: No Are you experiencing loss of taste or smell?: No Other Medical History Have you received the Flu Vaccine for this season: Yes Have you received the Pneumonia Vaccine: Yes Review of Systems Review of Systems Review of systems (narrative): Negative *Cardiovascular Comments: Negative *Gastrointestinal Comments: Negative *Genitourinary Comments: Negative *Musculoskeletal Comments: Negative *Neurologic Comments: Negative Meds Home Medications and Allergies Home Medications ?Medication ?Instructions ?Recorded ?Confirmed ?Type latanoprost 0.005 % eye drops 2 drp ophthalmic (eye) DAILY 04/25/23 08/08/24 History pentosan polysulfate sodium 100 mg See Rx Instructions .Route 12/14/23 08/08/24 Rx capsule ([place]miron) .COMPLEX #60 caps calcium 600 mg (as 1 tab PO DAILY . #90 tabs 12/27/23 08/08/24 Rx carbonate)-vitamin D3 10 mcg (400 unit) tablet (Calcium with Vitamin D) ergocalciferol (vitamin D2) 1,250 See Rx Instructions .Route 12/27/23 08/08/24 Rx mcg (50,000 unit) capsule (Vitamin .COMPLEX . #14 caps D2) cholecalciferol (vitamin D3) 25 See Rx Instructions .Route 01/25/24 08/08/24 Rx mcg (1,000 unit) tablet .COMPLEX #30 tabs furosemide 40 mg tablet See Rx Instructions .Route 02/02/24 08/08/24 Rx .COMPLEX #90 tabs apixaban 5 mg tablet (Eliquis) See Rx Instructions .Route 02/15/24 08/08/24 Rx .COMPLEX #180 tabs metoprolol succinate 100 mg See Rx Instructions .Route 04/09/24 08/08/24 Rx tablet,extended release 24 hr .COMPLEX #90 tabs clonazepam 1 mg tablet 1 mg PO Q8H PRN anxiety #90 tabs 05/14/24 08/08/24 Rx methenamine 81.6 mg-sod phos 40.8 1 tab PO QID PRN bladder 05/23/24 08/08/24 Rx mg-methylene blue 0.12mg-hyos pain/spasm #60 tabs tablet plecanatide 3 mg tablet (Trulance) 3 mg PO DAILY constipation #30 tabs 06/05/24 08/08/24 Rx hydroxyzine pamoate 25 mg capsule See Rx Instructions .Route 06/22/24 08/08/24 Rx .COMPLEX #90 caps cyclobenzaprine 10 mg tablet See Rx Instructions .Route 07/16/24 08/08/24 Rx .COMPLEX #90 tabs hydrocodone 10 mg-acetaminophen 1 tab PO Q4-6H PRN pain #90 tabs 07/20/24 08/08/24 Rx 325 mg tablet sodium,potassium,mag sulfates 17.5 See Rx Instructions PO .COMPLEX 07/25/24 08/08/24 Rx gram-3.13 gram-1.6 gram oral soln #354 mL (Suprep Bowel Prep Kit) peg 3350-electrolytes 236 240 ml PO Q10M colonscopy #4,000 mL 07/27/24 08/08/24 Rx gram-22.74 gram-6.74 gram-5.86 gram solution (Golytely) alendronate 70 mg tablet 70 mg PO WEEKLY 08/08/24 08/08/24 History aspirin 81 mg tablet,delayed 81 mg PO DAILY 08/08/24 08/08/24 History release atorvastatin 20 mg tablet 20 mg PO DAILY 08/08/24 08/08/24 History New Prescriptions to Start Prescriptions: Allergies Allergy/AdvReac Type Severity Reaction Status Date / Time Penicillins Allergy Intermediate I-RASH; Verified 08/08/24 11:14 JOINTS ACHE Exam Data for Last 24 hours Vital signs and Labs for Last 24 Hours: Temp Pulse Resp BP Pulse Ox O2 Del Method 97.1 F L 91 H 16 127/89 98 Room Air 08/08/24 11:09 08/08/24 11:09 08/08/24 11:09 08/08/24 11:09 08/08/24 11:09 08/08/24 11:09 I & O for Last 24 hours: Intake & Output 08/05/24 08/06/24 08/07/2408/08/25 23:59 23:59 23:59 23:59 Weight 195 lb *Routine HEENT Exam Head: Present normocephalic Eye: Present EOMI and PERRL ENT: Present mucous membranes moist *Routine Neck Exam Neck: Present supple *Routine Respiratory Exam Respiratory: Present CTA bilaterally *Routine Cardiovascular Exam Cardiovascular: Present RRR *Routine Abdominal Exam Abdominal: Present soft and normoactive bowel sounds; Absent tenderness *Routine Rectal Exam Rectal:: deferred *Routine Genitalia Exam Genitalia:: deferred *Routine Extremities Exam Extremities: Absent cyanosis, clubbing or edema *Routine Skin Exam Skin: Present warm; Absent rash *Routine Neurological Exam Neurological: Present alert and oriented X3 Assessment and Plan *Assessment and plan (1) Bright red rectal bleeding: Status: Acute Category: Medical Code(s): K62.5 - Hemorrhage of anus and rectum (2) Change in bowel habits: Status: Acute Category: Medical Code(s): R19.4 - Change in bowel habit (3) Constipation: Status: Acute Category: Medical Code(s): K59.00 - Constipation, unspecified (4) Bilateral lower abdominal discomfort: Status: Acute Category: Medical Code(s): R10.31 - Right lower quadrant pain; R10.32 - Left lower quadrant pain Plan A/P: 1. Bright red rectal bleeding and change in bowel habits with constipation is the preprocedural diagnosis. The patient will be anesthetized/sedated using MAC sedation. The patient has been seen and examined. Cardiac and lung assessment prior to the examination is stable. Proceed with planned diagnostic colonoscopy.
--- NOTE | 2024-08-08 11:47 | EXP.ANES.CKL ---
[facility] Disclaimer: The information contained in this section may have been updated after the patient was seen, as this information can be updated by other users. Medical History Osteoporosis Acute maxillary sinusitis Arachnoid cyst of posterior cranial fossa Hearing loss Hyperkalemia ETD (eustachian tube dysfunction) Right chronic serous otitis media Parotid gland enlargement Tear of supraspinatus tendon LV dysfunction Abnormal echocardiogram Abnormal electrocardiogram [ECG] [EKG] Coronary artery disease Former smoker Paroxysmal A-fib Stenosis of carotid artery Rotator cuff strain Lymphoma Chronic pain DDD (degenerative disc disease), cervical Colon cancer screening Breast tumor Degenerative disc disease, cervical Degenerative disc disease, lumbar Lymphedema of left upper extremity Subarachnoid cyst Surgical History H/O parotidectomy (~06/2023) History of cardiac catheterization History of bladder surgery History of lumpectomy of left breast Family History Other Family history of cancer Family history of heart disease Social History (Updated 08/08/24 @ 11:20 by Raina Babin RN) Smoking Status: Former smoker second hand exposure: No alcohol intake: never substance use type: denies use current occupational status: retired Travel in the last 8 weeks?: None household members: spouse housing: house current occupational exposures/hazards: No caffeine: Yes Have you lived/traveled outside US in past 30 days?: No Contact w/someone who lives/traveled outside US past 30 days?: No Exposure to someone with infectious disease in past 14 days?: No Do you have a fever (greater than 100.4 F or 38 C)?: No Have you tested positive for COVID-19?: No Exposed to someone with COVID-19 in past 14 days?: No Do you have a sore throat?: No Do you have a cough?: No Do you have any weakness?: No Are you experiencing any nausea/vomitting?: No Do you have any diarrhea?: No Are you experiencing any unusual bleeding?: No Do you have any muscle aches/pain?: No Do you have any abdominal pain?: No Are you experiencing loss of taste or smell?: No [facility] Anesthesia Checklist Patient Identification Patient Identification: Arm Band Structural Data Admitted From: Home Planned Operative Procedure/s: Colonoscopy Consent for Planned Operative Procedure(s) Verified: Yes Verified Documents: Surgical Consent and History and Physical NPO Status Verified Time NPO: 00:00 Additional verifications Anesthesia Reactions: No Hx Blood Transfusions: No Blood Transfusion Reaction: No Airway Assessment Mallampati Score:: Class II C-Spine Mobility Assessed: Yes TMJ Mobility Assessed: Yes Dentition: Good Dentition Neurological Assessment Level of Consciousness: Awake, Alert and Appropriate Anesthesia Plan Anesthesia Risk discussed: Yes Anesthesia Plan: Verified ASA Class: III Anesthesia Type: MAC
--- NOTE | 2024-08-08 12:03 | HMH.PROCNOTE ---
[facility] Procedure Note Date: 08/08/24 Time: 12:22 Procedure Note:: Colonoscopy Procedure Report: Colonoscopy with cold snare polypectomy and monopolar ablation/coagulation of internal hemorrhoids Endoscopist: James Crane II, MD Referring physician: Ildefonso Hale MD Date of Procedure: August 08, 2024 Equipment: Olympus 190 variable stiffness pediatric colonoscope Sedation: MAC sedation Indication: Mrs. Lara is a 59-year-old female who is here for diagnostic colonoscopy due to the new onset of bright red rectal bleeding with her bowel movements. She has had the new onset of constipation over the last year with some straining. She does get some bloating and lower abdominal discomfort. She reports no weight loss or family history of colon cancer. Her last colonoscopy was 15 to 20 years ago and she had a single polyp removed. She does state that this was a very unpleasant experience because she was still awake when this was performed. Procedure: Prior to the procedure, a history and physical exam was performed, and patient's medications and allergies were reviewed. The risks, benefits and alternatives of the sedation and procedure were discussed with the patient. All questions were answered and informed consent was obtained. The patient was brought to the procedure room. Patient identification and proposed procedure were verified by the physician and the nurse. The patient was placed in a left lateral decubitus position and the scope was passed under direct vision. Throughout the procedure, the patient's blood pressure, pulse, and oxygen saturations were monitored continuously. The colonoscopy was accomplished without difficulty. The patient tolerated the procedure well. Findings: On digital rectal examination there was normal rectal tone. There were no external hemorrhoids. The colonoscope was introduced through the anal canal to the rectum and advanced to the cecum. The ileocecal valve and appendiceal orifice were identified. The scope was advanced a short distance into the ileum which appeared grossly normal. The scope was then withdrawn into the colon. There was a single 4 mm polyp in the ascending colon removed via cold snare polypectomy. The remaining cecum, ascending and transverse colon and mucosa were grossly normal. There were few shallow mildly scattered diverticuli throughout the distal descending and sigmoid colon (LEFT colon). The rectum itself was normal. Upon retroflexion within the rectum there were grade 1-2 internal hemorrhoids. 3 columns of hemorrhoids were ablated/coagulated using monopolar ablation/forced coagulation to destruction. The preparation was excellent throughout with [place] Preparation Score of 9. The cecal time was 12 minutes. Impression: 1. Diminutive ascending colon polyp (4 mm) 2. Mild left-sided diverticulosis 3. Grade 1-2 internal hemorrhoids status post monopolar ablation/coagulation Plan: I do feel that her bleeding is related to the internal hemorrhoids. I am going to recommend that she begin a fiber bowel regimen (combined MiraLAX plus psyllium). I will follow-up the polyp histology and recommend repeat surveillance colonoscopy again in 7 to 10 years based upon the pathology.
[2024-08-08 12:28] VITALS: BP 102/55; PULSE 74; RESP 16; TEMP 36.4; O2SAT 92
[2024-08-08 12:38] VITALS: BP 103/61; PULSE 72; RESP 16; O2SAT 96
[2024-08-08 12:48] VITALS: BP 142/90; PULSE 76; RESP 16; O2SAT 96
[2024-08-08 12:56] VITALS: BP 150/86; PULSE 71; RESP 16; O2SAT 99
== END 2024-08-08 12:57 | disposition home or self-care (01) ==
PROVIDERS: PCP Family Medicine; Visit Provider Internal Medicine Gastroenterology
PROC: 0DJD8ZZ Inspection of Lower Intestinal Tract, Via Natural or Artificial Opening Endoscopic (ICD-10-PCS; CPT 45378; principal; 2024-08-08 12:30)
DX: K62.5 Hemorrhage of anus and rectum (principal); D12.2 Benign neoplasm of ascending colon; K57.31 Diverticulosis of large intestine without perforation or abscess with bleeding; K64.0 First degree hemorrhoids; K59.00 Constipation, unspecified; R19.4 Change in bowel habit; R10.32 Left lower quadrant pain; Z87.891 Personal history of nicotine dependence; Z79.899 Other long term (current) drug therapy; Z79.82 Long term (current) use of aspirin; Z88.0 Allergy status to penicillin
CPT/HCPCS: 45385; 46930; J7120

== ENCOUNTER 2024-09-17 11:35 | Outpatient (CLI) | payer MEDICAID, SELFPAY ==
[2024-09-17 20:22] LABS: Alanine Aminotransferase 23 U/L (12-78); Albumin Level 4.4 g/dl (3.5-5.0); Albumin/Globulin Ratio 1.3 (1.1-1.8); Alkaline Phosphatase 72 U/L (38-126); Anion Gap 16.9 mEq/L (5-15); Aspartate Amino Transferase 31 U/L (14-36); Bilirubin,Total 0.5 mg/dl (0.2-1.3); Blood Urea Nitrogen 19 mg/dl (7-17); Calcium 9.6 mg/dl (8.4-10.2); Carbon Dioxide 32 mmol/L (22.0-30.0); Chloride 95 mmol/L (98-107); Cholesterol 177 mg/dl (140-200); Creatinine,Serum 1.00 mg/dl (0.52-1.04); Estimated Glomerular Filt Rate 56 ml/min (>60); GFR (African American) 68 ML/MIN (>60); Globulin 3.5 g/dL (1.3-3.2); Glucose 88 mg/dl (74-100); HDL Cholesterol 66 mg/dl (40-60); Potassium 4.9 mmoL/L (3.5-5.1); Sodium 139 mmol/L (136-145); Total Protein,Serum 7.9 g/dl (6.3-8.2); Triglycerides 129 mg/dl (30-150)
--- OUTSIDE RECORDS SUMMARY | 2024-09-18 07:40 | XMS_ITS | Clinical Summary ---
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 Name Role Phone Jessica Coy RN Unavailable Conditions or Problems Problem Name Problem Code Onset Date Status Entry Date Provider Comment Standard Description Annotate Abscess, salivary gland 09983654 (SNOMED CT) 07/02 Active 07/02 Margy Brian Abscess of salivary gland Acute parotitis, right 335545895 (SNOMED CT) 07/02 Active 07/02 Margy Brian Acute sialoadenitis Neutrophilic leukemoid reaction D72.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 Provider CEFTRIAXONE SODIUM 2 GM SOLR Rocephin 2G IV [id number] LIU 07/06 ceftriaxone [id number] Jessica Coy RN HYDROXYZINE PAMOATE 25 MG CAPS Take 1 capsule by mouth once a day hydroxyzine pamoate 32990172590 Louisa Minor pentosan polysulfate (ELMIRON) 100 MG capsule Take 1 capsule by mouth twice a day ELMIRON Louisa Minor apixaban (ELIQUIS) 5 MG tablet tablet Take 1 tablet by mouth twice a day 07/26 ELIQUIS Louisa Minor HYDROCODONE-ACETAM INOPHEN 10-325 MG TABS Take 1 tablet by mouth every eight hours as needed hydrocodone-aceta minophen 17427007737 Louisa Minor CYCLOBENZAPRINE HCL 10 MG TABS Take 1 tablet by mouth three times a day as needed cyclobenzaprine 23527009482 Louisa Minor FLUTICASONE PROPIONATE 50 MCG/ACT SUSP 2 spray into both nostrils once a day as directed fluticasone propionate 72128814264 Louisa Minor METOPROLOL SUCCINATE ER 100 MG [id number] Take 1 tablet by mouth once a day metoprolol succinate 25409944580 Louisa Minor LATANOPROST 0.005 % SOLN Administer 1 drop into both eyes every night latanoprost 20170306614 Louisa Peña ATORVASTATIN CALCIUM 20 MG TABS Take 1 tablet by mouth once a day atorvastatin 77084868611 Louisa Pompa GOODSENSE ASPIRIN 81 MG CHEW Chew 1 tablet once a day aspirin 96122786332 Louisa Minor Ergocalciferol (VITAMIN D2 PO) Take 26798 unit by mouth once a week VITAMIN D2 PO Louisa Minor Meth-Hyo-M Bl-Na Phos-Ph Devonte (Ustell) 120 MG capsule Take 0.12 mg by mouth three times a day as needed Ustell Louisa Minor Calcium Carbonate-Vitamin D 500-5 MG-MCG tablet Take by mouth Calcium Carbonate-Vitamin D 500-5 MG-MCG tablet Louisa Minor ALENDRONATE SODIUM 70 MG TABS Take 1 tablet by mouth once a week alendronate 00379470780 Louisa Minor FUROSEMIDE 40 MG TABS Take 1 tablet by mouth once a day as needed furosemide 26332195396 Louisa Minor CLONAZEPAM 1 MG TABS Take 1 tablet by mouth three times a day clonazepam 49331649768 Louisa Minor metronidazole tablet by mouth metronidazole tablet Louisa Minor CEFTRIAXONE SODIUM 2 GM SOLR Rocephin 2G IV [id number] LIU 07/06 ceftriaxone 70669538140 Jessica Coy RN pentosan polysulfate (ELMIRON) 100 MG capsule Take 1 capsule by mouth 2 (Two) Times a Day. 07/06 ELMIRON QIE qieuser METRONIDAZOLE 500 MG TABS Take 1 tablet by mouth 3 (Three) Times a Day for 9 days. 07/05 metronidazole 39686051427 QIE qieuser METOPROLOL SUCCINATE ER 100 MG [id number] Take 1 tablet by mouth Daily. 07/06 metoprolol succinate 04040666098 QIE qieuser Meth-Hyo-M Bl-Na Phos-Ph Devonte (Ustell) 120 MG capsule Take 0.12 mg by mouth 3 (Three) Times a Day As Needed (bladder spasm). 07/06 Ustell QIE qieuser LATANOPROST 0.005 % SOLN Administer 1 drop to both eyes Every Night. 07/06 latanoprost 02915163008 QIE qieuser HYDROXYZINE PAMOATE 25 MG CAPS Take 1 capsule by mouth Daily. 09/11 hydroxyzine pamoate 19874813006 QIE qieuser HYDROCODONE-ACETAM INOPHEN 10-325 MG TABS Take 1 tablet by mouth Every 8 (Eight) Hours As Needed for Moderate Pain. 07/06 hydrocodone-aceta minophen 39623319430 QIE qieuser FUROSEMIDE 40 MG TABS Take 1 tablet by mouth Daily As Needed (edema). 07/06 furosemide 42405420555 QIE qieuser FLUTICASONE PROPIONATE 50 MCG/ACT SUSP 2 sprays into the nostril(s) as directed by provider Daily. 09/11 fluticasone propionate 04958032763 QIE qieuser Ergocalciferol (VITAMIN D2 PO) Take 50,000 Units by mouth 1 (One) Time Per Week. 07/06 VITAMIN D2 PO QIE qieuser CYCLOBENZAPRINE HCL 10 MG TABS Take 1 tablet by mouth 3 (Three) Times a Day As Needed for Muscle Spasms. 07/06 cyclobenzaprine 59354487169 QIE qieuser CLONAZEPAM 1 MG TABS Take 1 tablet by mouth 3 (Three) Times a Day. 09/11 clonazepam 12315251178 QIE qieuser cefTRIAXone 2,000 mg in sodium chloride 0.9 % 100 mL IVPB Infuse 2,000 mg into a venous catheter Daily for 9 doses. Indications: Infection of the Skin and/or Soft Tissue 07/06 cefTRIAXone 2,000 mg in sodium chloride 0.9 % 100 mL IVPB QIE qieuser Calcium Carbonate-Vitamin D 500-5 MG-MCG tablet Take by mouth. 07/06 Calcium Carbonate-Vitamin D 500-5 MG-MCG tablet QIE qieuser ATORVASTATIN CALCIUM 20 MG TABS Take 1 tablet by mouth Daily. 07/06 atorvastatin 59804583076 QIE qieuser GOODSENSE ASPIRIN 81 MG CHEW Chew 1 tablet Daily. 07/06 aspirin 41987090513 QIE qieuser apixaban (ELIQUIS) 5 MG tablet tablet Take 1 tablet by mouth 2 (Two) Times a Day for 30 days. 07/26 ELIQUIS QIE qieuser ALENDRONATE SODIUM 70 MG TABS Take 1 tablet by mouth Every 7 (Seven) Days. 07/06 alendronate 04606050442 QIE qieuser CEFTRIAXONE SODIUM 2 GM SOLR Rocephin 2G IV [id number]/[facility] 07/05 ceftriaxone 40210418859 Jessica Coy RN CEFTRIAXONE SODIUM 2 GM SOLR 2 gms IV Q 24 hrs/[facility] 06/29 ceftriaxone 41437083870 Frannie Singh RN Medications Administered No information available. Allergies, Adverse Reactions, Alerts Allergy Name Reaction Description Start Date Severity Statu s Provider PENICILLIN G POTASSIUM Moderate Active Keyonna Castrejon Results Date Name Value Unit Range Flag Description Chart Maintenance: lab resul CRP 6.8 mg/dL C reactive pr otein [Mass/volume] in Serum or Plasma ALK PHOS 55 U/L Alkaline dean sphatase [Enzymatic activity/volume] in Blood SGPT (ALT) 40 U/L Alanine aminotransferase [Enzymatic activity/volume] in Serum or Plasma SGOT (AST) 45 U/L Aspartate aminotransferase [Enzymatic activity/volume] in Serum or Plasma POTASSIUM 2.8 mmol/L Potassium [Moles/volume] in Serum or Plasma SODIUM 140 mmol/L Sodium [Moles /volume] in Serum or Plasma CREATININE 0.7 mg/dL Creatinine [Mass/volume] in Serum or Plasma BUN 4 mg/dL Urea nitrogen [Mass/volume] in Serum or Plasma GLUCOSE SER 134 mg/dL Glucose [ Mass/volume] in Serum or Plasma LYMPHS % 14.8 % Lymphocytes/ 100 leukocytes in Blood by Automated count PMN % 79.9 % Neutrophils/1 00 leukocytes in Blood by Automated count PLATELETS 391 10*3/mm3 Platelets [#/volume] in Blood by Automated count HCT 28.1 % Hematocrit [V olume Fraction] of Blood by Automated count HGB 9 g/dL Hemoglobin [Mass/volume] in Blood RBC 2.8 10*6/mm3 Erythrocytes [#/volume] in Blood by Automated count WBC 14.5 10*3/mm3 Leukocytes [ #/volume] in Blood by Automated count Office Visit: Office Visit: 6 - HFU VAPE_USE Never Tobacco smok ing status ORALTOBACUSE Never Tobacco smoking status SMOK STATUS Former smoker Tob acco smoking status MEDS REVIEW Done Documenta tion of current medications (procedure) Plan of Care No information available. Procedures No information available. Vital Signs Date Name Value Unit Description BMI (Body Mass Index) 30.15 kg/m2 Bod y Mass Index (Ratio) Body Temperature 98.3 [degF] temperat ure E&M BP Diastolic 75 mm[Hg] blood pressu re, diastolic BP Systolic 112 mm[Hg] blood pressur e, systolic Heart Rate 81 /min pulse rate Height 65 [in_us] height E&M Respiratory Rate 16 /min respirat ory rate E&M Weight Measured 181.2 [lb_av] weight E& M Weight Measured 181.2 [lb_av] weight E& M Immunizations No information available. Advance Directives Directive Description Start Date NO ADVANCED DIRECTIVES AT THIS TIME 2023
--- OUTSIDE RECORDS SUMMARY | 2024-09-18 07:40 | XMS_ITS | Clinical Summary ---
Author Organization Healthcare Address [address] [place] [address] Care Team Providers Care Mail Handler Sorter Name Role Phone Unavailable Primary Care Provider Unavailabl e Family History Medical History Relation Name Comments Arthritis Father Cardiac disorder Father Hypertension Father Osteoporosis Father Anemia Mother Cardiac disorder Mother Hypertension Mother Osteoporosis Mother Other cancer Mother Thyroid disease Mother Cardiac disorder Other 1 Hypertension Other 2 Other cancer Other 3 Osteoporosis Other 4 Thyroid disease Other 5 Relation Name Status Comments Father Mother Other 1 Other 2 Other 3 Other 4 Other 5 Social History Tobacco Use Types Packs/Day Years Used Date Smoking Tobacco: Former Comments Unknown Sex and Gender Information Value Date Recorded Sex Assigned at Not on file Legal Sex Female 8:37 PM EDT Gender Identity Not on file Sexual Orientation Not on file Last Filed Vital Signs Vital Sign Reading Time Taken Comments Blood Pressure 132/93 08/02/2022 1:02 PM EDT Pulse 93 08/02/2022 1:02 PM EDT Temperature - - Respiratory Rate - - Oxygen Saturation - - Inhaled Oxygen Concentration - - Weight 83.5 kg (184 lb) 08/02/2022 1:02 PM EDT Height 152.4 cm (5') 08/02/2022 1:02 PM EDT Body Mass Index 35.94 08/02/2022 1:02 PM EDT Plan of Treatment Health Maintenance Due Date Last Done Comments [facility]-Depression Screening 1965 [facility]-Infant/Child/Adol SDOH Screenings 1965 [facility]- SDOH Screenings 07/04/1981 [facility]-Adult SDOH Screenings 07/04/1981 [facility]-Pap Smear 04/10/1996 04/10/1993, 06/1991, 04/30/1991, Additional history exists [facility]-Cervical Cancer Screening 04/10/1998 [facility]-HPV/Cotest 04/10/1998 04/10/1993, 06/1991, 04/30/1991, Additional history exists CT Colonography 07/04/2008 Colonoscopy 07/04/2008 FIT-DNA 07/04/2008 FIT 07/04/2008 FOBT 07/04/2008 Sigmoidoscopy 07/04/2008 [facility]-Colorectal Cancer Screening 07/04/2008 [facility]-Zoster Vaccines (1 of 2) 07/04/2013 [facility]-Pneumococcal Vaccine: 50+ Years (2 of 2 - PCV) 03/24/2021 03/24/2020 [id number] Vaccine (3 - 2023- season) 2023 12/04/2020, 10/30/2020 [facility]-Influenza Vaccine (#1) 11/12/202401/22, 12/05/2017, 12/15/2016, Additional history exists [facility]-DTaP,Tdap,and Td Vaccines (2 - Td or Tdap) 08/21/2025 08/22/2015 [facility]-RSV Vaccine: 60+ Years or (1 - 1-dose 75+ series) 07/04/2038 [facility]-Breast Cancer Screening Discontinued 03/14, 03/24/2022, 11/22/2019, Additional history exists HPV Vaccines Aged Out No longer eligi ble based on patient's age to complete this topic [facility]-HIB Vaccines Aged Out No longer e ligible based on patient's age to complete this topic [facility]-Hepatitis A Vaccines Aged Out No longer eligible based on patient's age to complete this topic [facility]-IPV Vaccines Aged Out No longer e ligible based on patient's age to complete this topic [facility]-Rotavirus Vaccines Aged Out No lo nger eligible based on patient's age to complete this topic Procedures Procedure Name Priority Date/Time Associated Diagnosis Comments CYTO DATA CONVERSION Routine 04/10/1993 12:00 AM EST from Last 3 Months or Most Recently Relevant to Health Maintenance Results * Cytology (04/10/1993 12:00 AM EST) 04/10/1993 04/14/1993 Narrative SUNQUEST - 04/17/1993 12:00 AM EST [facility] MR #: [id number] [facility] [place] [address] 1965 (Age: 27) FW Collect Date: 04/10/1993 00:00 Receipt Date: 04/14/1993 00:00 Page 1 DEPARTMENT OF PATHOLOGY AND LABORATORY MEDICINE CYTOPATHOLOGY REPORT Email: [email or web address] [phone] * Converted Case * This report may not match the original report format ATTENDING MD/Practitioner: Zara Calix MD Service: Location: Reported: 04/17/1993 00:00 Collected: 04/10/1993 00:00 INTERPRETATION CERVICAL SCRAPE/ENDOCERVICAL SWAB WITHIN NORMAL LIMITS. SATISFACTORY BUT LIMITED BY SPARSE TO NO ENDOCERVICAL CELLS. Electronically Signed Out JESSENIA Otto (ASCP) MD Duncan Pritchett CT (ASCP) Cervical cytology is a screening test primarily for squamous cancers and precursors and has associated false negative and positive results. New technologies such as liquid based sampling may decrease but will not eliminate all false negative results. Regular screening and follow-up of unexplained clinical signs and symptoms are recommended to minimize false negative results. Please see the ASCCP website (www.asccp.org) for followup recommendations. If HPV testing was requested, correlation with the results is suggested (please call Microbiology at [phone] for results). CLINICAL INFORMATION: Menstrual History: {Not Provided} Date of Last Menstrual Period: {Not Provided} SPECIMEN DESCRIPTION: A: CERVICAL/VAGINAL SMEAR, PAP ICD: F: {Not Entered} SNOMED CODES: 1; S5T831 [id number] [id number] In cases where a pathologist has signed out the report, the service has been rendered in part by a resident. The signing pathologist has performed and is responsible for the reported pathologic evaluation. us Historical Provider LAB PATHOLOGY ORDERABLES Final Result SUNQUEST from Last 3 Months or Most Recently Relevant to Health Maintenance Insurance [facility] MEDICAID
== END 2024-09-17 23:59 | disposition home or self-care (01) ==
LOC: LAB.DROPOF 09-18 07:39
PROVIDERS: PCP Family Medicine; Visit Provider Family Medicine
DX: E78.5 Hyperlipidemia, unspecified (principal)
CPT/HCPCS: 80053; 80061

== ENCOUNTER 2024-12-05 08:10 | Outpatient (CLI) | payer MEDICAID, SELFPAY ==
--- NOTE | 2024-12-05 08:30 | MM_ITS ---
PROCEDURE INFORMATION: Exam: MG Bilateral Screening 3D Mammography Exam date and time: 12/05/2024 8:27 AM Age: 59 years old Clinical indication: Screening examination TECHNIQUE: Imaging protocol: Bilateral Screening tomosynthesis and 2D mammography including computer-aided detection (CAD) when performed. COMPARISON: 1. MG MM DIG SCREENING MAMM BI W/CAD 11/29/2023 3:36 PM 2. MG MAMMO SCREENING DIGITAL TOMOSYNTHESIS BILATERAL W CAD 03/24/2022 9:05 AM FINDINGS: MAMMOGRAPHY: Breast composition: There are scattered areas of fibroglandular density. Mass: No suspicious masses. Architectural distortion: Postsurgical changes redemonstrated left breast. Calcifications: No suspicious calcifications. Asymmetric density: None. Skin thickening: None. Axillary adenopathy: None. IMPRESSION: No mammographic evidence of malignancy. Annual screening is recommended unless otherwise clinically indicated. ASSESSMENT: BI-RADS Category 2: Benign.
== END 2024-12-05 23:59 | disposition home or self-care (01) ==
LOC: RAD 08:11
PROVIDERS: PCP Family Medicine; Visit Provider Family Medicine
DX: Z12.31 Encounter for screening mammogram for malignant neoplasm of breast (principal); R92.323 Mammographic fibroglandular density, bilateral breasts; Z98.890 Other specified postprocedural states
CPT/HCPCS: 77063; 77067

== ENCOUNTER 2025-01-09 11:00 | Outpatient (RCR) | payer MEDICAID, SELFPAY ==
--- NOTE | 2024-12-14 17:14 | HMH.OPLYMPH ---
Rehab Lymphedema Evaluation Rehab Lymphedema Evaluation Start: 12/14/24 16:49 Freq: Status: Active Protocol: Document 12/14/24 16:51 ROYA (Rec: 12/14/24 17:13 PHORDIONNE [id number]) E-signed By Hubert Ponce, PT Subjective/History History History This is the initial PT lymphedema eval for Jeannie Lara, 59 yowf who presents with chronic L UE lymphedema secondary to breast cancer with lumpectomy x ~ 25 yrs. She reports this episode has been worse x ~ 3-4 mos. She reports increased heaviness of her L UE which results in difficulty with all ADLs, including dressing. She has a home lymphedema pump which helps with her symptoms typically. She also has compression garments, but they currently don't fit due to her exacerbation of lymphedema. She reports PMH of L RCT tear and she receives regular injections for reducing pain. She also reports intermittent numbness in her L hand, usually worse at night. Subjective Subjective Current pain 0/10, at worst pain is 5/10 in the L UE. Minimal L UE skin dryness and erythema noted. 1/4 TTP noted in the L upper arm. Moderate fibrotic edema palpable throughout L UE. LLIS score: 42 Lymphedema Eval Classification of Lymphedema Secondary Lymphedema Yes: breast cancer Stemmer's sign Stemmer's Sign yes Stage of Lymphedema Lymphedema stages Stage II (Pitting edema, increased fibrosis w/ decreased pitting) Skin Changes Dry Skin Yes Skin Folds Yes Redness Yes Discoloration of Yes Skin Other Changes Yes Pain Scale Pain Scale (0-10) 5 Radiation Therapy Has received no radiation therapy Chemo Therapy Has received chemo no therapy Affected Extremities Areas Affected by Left Upper Extremity,Left Breast,Left Axilla Lymphedema/Edema Upper Extremity Measurements Left MCP Measurement (cm) 19.6 Web Space 22.5 Measurement (cm) Ulnar Styloid 19.9 Process Measurement (cm) 10 cm Proximal to 26.5 Ulnar Styloid Measurement (cm) 20 cm Proximal to 31.4 Ulnar Styloid Measurement (cm) 30 cm Proximal to 38.2 Ulnar Styloid Measurement (cm) 40 cm Proximal to 42.3 Ulnar Styloid Measurement (cm) 50 cm Proximal to 44.2 Ulnar Styloid Measurement (cm) Upper Extremity 244.6 Measurement Total ( cm) Manual Lymphatic Drainage Treatment Area MLD Treatment Area Left Upper Extremity,Abdomen,Left Axilla Wound Problems/Impairments Impairments Problems/ Palpation Tenderness,Impaired Endurance,Impaired Impairmments Lifting,Impaired Dressing,Impaired Shower/Bathing, Impaired Household Care,Impaired Recreational Activities,Increased Edema,Lymphedema Present, Subjective C/O Pain,Impaired Self Care/Self Management Prognosis Rehab Potential Good Comment Skilled therapy is indicated to aid reduction of overall lymphedema in order to assist pt return to improved QOL. Clinical Impression Consistent with Yes Diagnosis Lymphedema Patient Goals Lymphedema Patient Goals Lymphedema Short in 4 wks pt will: Term Patient Goals 1) Reduce fibrotic edema to minimal in L UE 2) Reduce circumferential measurements to L UE by 5 cm Lymphedema Prison in 8 wks pt will: Patient Goals 1) Reduce fibrotic edema to none in L UE 2) Reduce circumferential measurements to L UE by 10 cm 3) Be independent with donning/doffing of compression garments 4) be independent with Lymphedema management via HEP Outpatient Therapy Plan of Care Treatment Plan May Include Therapeutic Exercise Yes Including Home Exercise Program Manual Therapy Yes Techniques Neuromuscular Re- Yes education Therapeutic Yes Activities to Return to Previous Functional/Work Level ADL/Self Care Yes Education Orthotics/Bracing/ Yes Splinting Manual Lymphatic Yes Drainage Eval/Re-Eval Yes Frequency Times per week 2 Duration Number of Weeks 8 Addendums This patient is a No candidate for social or vocational rehab ? Patient/Guardian Yes verbally acknowledges understanding of treatment program and consents to further treatment? Patient/Guardian Yes verbally acknowledges understanding of diagnosis, prognosis and goals for treatment? Eval Complexity PT Charges 05345 - Moderate Complexity PHYSICIAN CERTIFICATION: I certify the specified therapy services for Jeannie Lara are required, authorized, and reviewed every 30 days.
== END 2025-01-09 23:59 | disposition home or self-care (01) ==
LOC: PT 11:00
PROVIDERS: Visit Provider Family Medicine
DX: I89.0 Lymphedema, not elsewhere classified (principal)
CPT/HCPCS: 97140; 97162

== ENCOUNTER 2025-01-30 11:00 | Outpatient (RCR) | payer MEDICAID, SELFPAY ==
--- NOTE | 2025-01-16 13:02 | HMH.RHREAS ---
Rehab Reassessment Rehab OP Re-assessment Start: 01/16/25 11:51 Freq: Status: Active Protocol: Document 01/16/25 12:49 NAZIADIONNE (Rec: 01/16/25 12:59 PHORDIONNE [id number]) E-signed By Hubert Ponce, PT Rehab Re-assessment Subjective Subjective Pt reports she is no longer having numbness in her fingers and has no c/o pain in her L UE this date. She does reports feeling fullness in her breast, axilla, and upper arm on the L side. Objective Objective Notes Circumferential Measurements: L UE total is 235.9 cm which is -8.7 cm since IE. Pain: 0/10 in L UE this date TTP: 0/4 L UE this date Edema: No pitting edema, MODERATE fibrotic edema throughout L UE, axilla, and breast. LLIS: 39 Assessment Progress Assessment Progressing as Expected Assessment Notes Pt has been present for 3 treatment sessions since her initial evaluation. Pt has shown significant decrease in overall edema based on circumferential measurements. She does continue to have difficulty with certain ADLs , especially dressing, and needs further independence with home management of her lymphedema symptoms. Skilled therapy remains indicated to address these issues in order to aid pt improvement in overall QOL. Lymphedema Patient Goals Lymphedema Short in 4 wks pt will: Term Patient Goals 1) Reduce fibrotic edema to minimal in L UE 2) Reduce circumferential measurements to L UE by 10 cm Lymphedema Debone Supervisor in 8 wks pt will: Patient Goals 1) Reduce fibrotic edema to none in L UE 2) Reduce circumferential measurements to L UE by 20 cm 3) Be independent with donning/doffing of compression garments 4) be independent with Lymphedema management via HEP Plan Plan Updated POC sent to provider for their continued input and approval. Continued pt treatment may include any or all of the following interventions in order to improve functional outcomes and aid pt improvement in QOL: Frequency of Therapy 2 x/wk Duration of Therapy 8 wks Therapeutic Exercise Yes Including Home Exercise Program Manual Therapy Yes Techniques Neuromuscular Re- Yes education Therapeutic Yes Activities to Return to Previous Functional/Work Level ADL/Self Care Yes Education Orthotics/Bracing/ Yes Splinting Manual Lymphatic Yes Drainage Eval/Re-Eval Yes Time and Billing Re-Eval Time 17 Re-Eval Billing 0 Units Charge for PT No reassessment? PHYSICIAN CERTIFICATION: I certify the specified therapy services for Jeannie Lara are required, authorized, and reviewed every 30 days.
== END 2025-01-30 23:59 | disposition home or self-care (01) ==
LOC: PT 11:00
PROVIDERS: PCP Family Medicine; Visit Provider Family Medicine
DX: I89.0 Lymphedema, not elsewhere classified (principal)
CPT/HCPCS: 97140

== ENCOUNTER 2025-02-21 09:37 | Outpatient (CLI) | payer MEDICAID, SELFPAY ==
[2025-02-21 10:15] LABS: Hematocrit 41.0 % (37.0-47.0); Hemoglobin 13.1 g/dL (12.2-16.2); Immature Granulocytes % 0.6 %; Mean Corpuscular HGB Conc 32.0 g/dL (31.8-35.4); Mean Corpuscular Hemoglobin 29.2 pg (27.0-31.2); Mean Corpuscular Volume 91.5 fl (81-99); Nucleated Red Blood Cells % 0 %; Platelet Count 313 K/mm3 (142-424); Red Blood Count 4.48 M/mm3 (4.20-5.40); Red Cell Distribution Width-SD 46.2 fL; White Blood Count 10.7 K/mm3 (4.8-10.8)
[2025-02-21 10:36] LABS: Albumin Level 4.4 g/dl (3.5-5.0); Chloride 100 mmol/L (98-107); Potassium 4.3 mmoL/L (3.5-5.1); Sodium 144 mmol/L (136-145)
[2025-02-21 10:38] LABS: Blood Urea Nitrogen 17 mg/dl (7-17); Creatinine,Serum 1.00 mg/dl (0.52-1.04); Estimated Glomerular Filt Rate 56 ml/min (>60); GFR (African American) 68 ML/MIN (>60)
[2025-02-21 10:39] LABS: Alanine Aminotransferase 20 U/L (12-78); Albumin/Globulin Ratio 1.2 (1.1-1.8); Alkaline Phosphatase 74 U/L (38-126); Anion Gap 17.3 mEq/L (5-15); Aspartate Amino Transferase 27 U/L (14-36); Bilirubin,Total 0.6 mg/dl (0.2-1.3); Calcium 9.6 mg/dl (8.4-10.2); Carbon Dioxide 31 mmol/L (22.0-30.0); Globulin 3.7 g/dL (1.3-3.2); Glucose 116 mg/dl (74-100); Total Protein,Serum 8.1 g/dl (6.3-8.2)
== END 2025-02-21 23:59 | disposition home or self-care (01) ==
LOC: LAB 09:38
PROVIDERS: PCP Family Medicine; Visit Provider Internal Medicine Medical Oncology
DX: C82.90 Follicular lymphoma, unspecified, unspecified site (principal)
CPT/HCPCS: 36415; 80053; 83615; 85025

== ENCOUNTER 2025-02-26 13:35 | Outpatient (CLI) | payer MEDICAID, SELFPAY ==
--- OUTSIDE RECORDS SUMMARY | 2025-02-26 13:39 | XMS_ITS | Clinical Summary ---
Author Organization Healthcare Address [address] [place] [address] Care Team Providers Care Crepe Box Tender Name Role Phone Unavailable Primary Care Provider [...] (2 of 2 - PCV) 03/24/2021 03/24/2020 [id number] Vaccine (3 - season) 2024 12/04/2020, 10/30/2020 [facility]-Influenza Vaccine (#1) 11/12/202401/22, 12/05/2017, 12/15/2016, Additional history exists [facility]-DTaP,Tdap,and Td Vaccines (2 - Td or Tdap) 08/21/2025 08/22/2015 [facility]-RSV Vaccine: 60+ Years or (1 - 1-dose 75+ series) 07/04/2038 [facility]-Breast Cancer Screening Discontinued 03/14, 03/24/2022, 11/22/2019, Additional history exists HPV Vaccines (No Doses Required) Completed [facility]-HIB Vaccines Aged Out No longer e [...] Narrative SUNQUEST - 04/17/1993 12:00 AM EST [facility] MR #: [id number] [facility] [place] [address] 1965 (Age: 27) FW Collect Date: 04/10/1993 00:00 Receipt Date: 04/14/1993 00:00 Page 1 DEPARTMENT OF PATHOLOGY AND LABORATORY MEDICINE CYTOPATHOLOGY REPORT Email: [email or web address] [phone] * Converted Case * This report may [...] results is suggested (please call Microbiology at [phone] for results). CLINICAL INFORMATION: Menstrual History: {Not Provided} Date of Last Menstrual Period: {Not Provided} SPECIMEN DESCRIPTION: A: CERVICAL/VAGINAL SMEAR, PAP ICD: F: {Not Entered} SNOMED CODES: 1; Y0F690 [id number] [id number] In cases where a pathologist has signed out the report, the service has been rendered in part by a resident. The signing pathologist has performed and is responsible for the reported pathologic evaluation. us Historical Provider LAB PATHOLOGY ORDERABLES Fin al Result [employer] from Last 3 Months or Most Recently Relevant to Health Maintenance Insurance [employer] MEDICA[employer]
--- OUTSIDE RECORDS SUMMARY | 2025-02-26 13:39 | XMS_ITS | Clinical Summary ---
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 Provider CEFTRIAXONE SODIUM 2 GM SOLR Rocephin 2G IV [id number] LIU 07/06 ceftriaxone [id number] Luz Marina Adorno RN HYDROXYZINE PAMOATE 25 MG CAPS Take 1 capsule by mouth once a day hydroxyzine pamoate [id number] Louisa Minor pentosan polysulfate (ELMIRON) 100 MG capsule Take 1 capsule by mouth twice a day ELMIRON Louisa Minor apixaban (ELIQUIS) 5 MG tablet tablet Take 1 tablet by mouth twice a day 07/26 ELIQUIS Louisa Minor HYDROCODONE-ACETAM INOPHEN 10-325 MG TABS Take 1 tablet by mouth every eight hours as needed hydrocodone-aceta minophen 31331040532 Louisa Minor CYCLOBENZAPRINE HCL 10 MG TABS Take 1 tablet by mouth three times a day as needed cyclobenzaprine 22939025080 Louisa Minor FLUTICASONE PROPIONATE 50 MCG/ACT SUSP 2 spray into both nostrils once a day as directed fluticasone propionate 47743943256 Louisa Peña METOPROLOL SUCCINATE ER 100 MG [id number] Take 1 tablet by mouth once a day metoprolol succinate 74215976714 Louisa Minor LATANOPROST 0.005 % SOLN Administer 1 drop into both eyes every night latanoprost 37678517837 Louisa Peña ATORVASTATIN CALCIUM 20 MG TABS Take 1 tablet by mouth once a day atorvastatin 65237393588 Louisa Pompa GOODSENSE ASPIRIN 81 MG CHEW Chew 1 tablet once a day aspirin 61033952972 Louisa Minor Ergocalciferol (VITAMIN D2 PO) Take 51101 unit by mouth once a week VITAMIN D2 PO Louisa Minor Meth-Hyo-M Bl-Na Phos-Ph Devonte (Ustell) 120 MG capsule Take 0.12 mg by mouth three times a day as needed Ustell Lousia Minor Calcium Carbonate-Vitamin D 500-5 MG-MCG tablet Take by mouth Calcium Carbonate-Vitamin D 500-5 MG-MCG tablet Louisa Minor ALENDRONATE SODIUM 70 MG TABS Take 1 tablet by mouth once a week alendronate 53543922306 Louisa Minor FUROSEMIDE 40 MG TABS Take 1 tablet by mouth once a day as needed furosemide 07927832788 Louisa Minor CLONAZEPAM 1 MG TABS Take 1 tablet by mouth three times a day clonazepam 25229200046 Louisa Minor metronidazole tablet by mouth metronidazole tablet Louisa Minor CEFTRIAXONE SODIUM 2 GM SOLR Rocephin 2G IV [id number] Cheri [facility] 07/06 ceftriaxone 80260903947 [facility] IGNACIO pentosan polysulfate (ELMIRON) 100 MG capsule Take 1 capsule by mouth 2 (Two) Times a Day. 07/06 ELMIRON QIE qieuser METRONIDAZOLE 500 MG TABS Take 1 tablet by mouth 3 (Three) Times a Day for 9 days. 07/05 metronidazole 77135942898 QIE qieuser METOPROLOL SUCCINATE ER 100 MG [id number] Take 1 tablet by mouth Daily. 07/06 metoprolol succinate 07094812759 QIE qieuser Meth-Hyo-M Bl-Na Phos-Ph Devonte (Ustell) 120 MG capsule Take 0.12 mg by mouth 3 (Three) Times a Day As Needed (bladder spasm). 07/06 Ustell QIE qieuser LATANOPROST 0.005 % SOLN Administer 1 drop to both eyes Every Night. 07/06 latanoprost 24366197812 QIE qieuser HYDROXYZINE PAMOATE 25 MG CAPS Take 1 capsule by mouth Daily. 09/11 hydroxyzine pamoate 00507117647 QIE qieuser HYDROCODONE-ACETAM INOPHEN 10-325 MG TABS Take 1 tablet by mouth Every 8 (Eight) Hours As Needed for Moderate Pain. 07/06 hydrocodone-aceta minophen 72543127909 QIE qieuser FUROSEMIDE 40 MG TABS Take 1 tablet by mouth Daily As Needed (edema). 07/06 furosemide 92376302902 QIE qieuser FLUTICASONE PROPIONATE 50 MCG/ACT SUSP 2 sprays into the nostril(s) as directed by provider Daily. 09/11 fluticasone propionate 45915082335 QIE qieuser Ergocalciferol (VITAMIN D2 PO) Take 50,000 Units by mouth 1 (One) Time Per Week. 07/06 VITAMIN D2 PO QIE qieuser CYCLOBENZAPRINE HCL 10 MG TABS Take 1 tablet by mouth 3 (Three) Times a Day As Needed for Muscle Spasms. 07/06 cyclobenzaprine 78571466413 QIE qieuser CLONAZEPAM 1 MG TABS Take 1 tablet by mouth 3 (Three) Times a Day. 09/11 clonazepam 89684160545 QIE qieuser cefTRIAXone 2,000 mg in sodium [...] 1 tablet by mouth Daily. 07/06 atorvastatin 44838440884 QIE qieuser GOODSENSE ASPIRIN 81 MG CHEW Chew 1 tablet Daily. 07/06 aspirin 55809288352 QIE qieuser apixaban (ELIQUIS) 5 MG tablet tablet Take 1 tablet by mouth 2 (Two) Times a Day for 30 days. 07/26 ELIQUIS QIE qieuser ALENDRONATE SODIUM 70 MG TABS Take 1 tablet by mouth Every 7 (Seven) Days. 07/06 alendronate 12850215127 QIE qieuser CEFTRIAXONE SODIUM 2 GM SOLR Rocephin 2G IV [id number]/[facility] 07/05 ceftriaxone 02047862075 Luz Marina Adorno RN CEFTRIAXONE SODIUM 2 GM SOLR 2 gms IV Q 24 hrs/[facility] 06/29 ceftriaxone 30321921084 Frannie Singh RN Medications Administered No information available. Allergies, Adverse Reactions, Alerts Allergy Name Reaction Description Start Date Severity Statu s Provider PENICILLIN G POTASSIUM Moderate Active Keyonna Castrejon Results Date Name Value Unit Range Flag Description Chart Maintenance: lab resul CRP 6.8 mg/dL C reactive pr otein [Mass/volume] in Serum or Plasma ALK PHOS 55 U/L Alkaline dena sphatase [Enzymatic activity/volume] in Blood SGPT (ALT) [...]
--- OUTSIDE RECORDS SUMMARY | 2025-02-26 13:39 | XMS_ITS | Clinical Summary ---
Author Organization [facility] Address [address] [place] [address] Care Team Providers Care Prep Person Name Role Phone Tatianna Howard Primary Care Provider [phone] Allergies Active Allergy Reactions Criticality Noted Date Comments Penicillins Rash Low 04/22/2016 Medications metoprolol succinate XL (TOPROL-XL) 100 MG 24 hr tablet Take 1 tablet by mouth Daily. Active cyclobenzaprine (FLEXERIL) 10 MG tablet Take 1 tablet by mouth 3 (Three) Times a Day As Needed for Muscle Spasms. Active alendronate (FOSAMAX) 70 MG tablet Take 1 tablet by mouth Every 7 (Seven) Days. Active aspirin 81 MG chewable tablet Chew 1 tablet Daily. Active atorvastatin (LIPITOR) 20 MG tablet Take 1 tablet by mouth Daily. Active Calcium Carbonate-Vitami n D 500-5 MG-MCG tablet Take by mouth. Activ e clonazePAM (KlonoPIN) 1 MG tablet Take 1 tablet by mouth 3 (Three) Times a Day. Active Ergocalciferol (VITAMIN D2 PO) Take 50,000 Units by mouth 1 (One) Time Per Week. Active fluticasone (FLONASE) 50 MCG/ACT nasal spray 2 sprays into the nostril(s) as directed by provider Daily. Active furosemide (LASIX) 40 MG tablet Take 1 tablet by mouth Daily As Needed (edema). Active HYDROcodone-acet aminophen (NORCO) 10-325 MG per tablet Take 1 tablet by mouth Every 8 (Eight) Hours As Needed for Moderate Pain. Active hydrOXYzine pamoate (VISTARIL) 25 MG capsule Take 1 capsule by mouth Daily. Active latanoprost (XALATAN) 0.005 % ophthalmic solution Administer 1 drop to both eyes Every Night. Active Meth-Hyo-M Bl-Na Phos-Ph Devonte (Ustell) 120 MG capsule Take 0.12 mg by mouth 3 (Three) Times a Day As Needed (bladder spasm). Active pentosan polysulfate (ELMIRON) 100 MG capsule Take 1 capsule by mouth 2 (Two) Times a Day. Active Active Problems Problem Noted Date Diagnosed Date Malignant neoplasm of left breast 06/17/2023 Obesity (BMI 30-39.9) 06/17/2023 Atrial fibrillation 06/17/2023 Overview (06/17/2023): New dx per pt and hasn't even started her a/c yet. Takes metoprolol NHL (non-Hodgkin's lymphoma) 06/17/2023 Lymphedema 06/17/2023 Overview (06/17/2023): LUE HNP (herniated nucleus pulposus), cervical 04/14 Cervical radiculopathy 02/17/2017 Subarachnoid cyst 04/23/2016 Vertigo 04/23/2016 Resolved Problems Problem Noted Date Diagnosed Date Resolved Date Parotid abscess 06/20/2023 06/28/2023 Parotid mass 06/17/2023 06/28/2023 Family History Medical History Relation Name Comments No Known Problems Daughter 1 No Known Problems Daughter 2 Ovarian cancer Mother age unknown Breast cancer Neg Hx Relation Name Status Comments Daughter 1 Alive Daughter 2 Alive Mother Social History Tobacco Use Types Packs/Day Years Used Date Smoking Tobacco: Former Cigarettes Smokeless Tobacco: Never Tobacco Cessation:Counseling Given: Yes Alcohol Use Standard Drinks/Week Comments Not Currently 0 (1 standard drink = 0.6 oz pur e alcohol) Rare [facility] Utilities Answer Date Recorded In the past 12 months has th e electric, gas, oil, or water company threatened to shut off services in your home? No 06/20/2023 AUDIT-C Answer Date Recorded Q1: How often do you have a drink containing alcohol? Never 06/17/2023 Q2: How many drinks containi ng alcohol do you have on a typical day when you are drinking? Patient does not drink Q3: How often do you have si x or more drinks on one occasion? Never 06/17/2023 Overall Financial Resource Strain (CARDIA) Answe r Date Recorded How hard is it for you to pa y for the very basics like food, housing, medical care, and heating? Not very hard 06/20/2023 [facility] - Occupational Stress Questionnaire Answer Date Recorded Do you feel stress - tense, restless, nervous, or anxious, or unable to sleep at night because your mind is troubled all the time - these days? Not at all 06/20/2023 Exercise Vital Sign Answer Date Recorde d On average, how many days pe r week do you engage in moderate to strenuous exercise (like a brisk walk)? 5 days 06/20/2023 On average, how many minutes do you engage in exercise at this level? 30 min 06/20/2023 Hunger Vital Sign Answer Date Recorded Within the past 12 months, y ou worried that your food would run out before you got the money to buy more. Never true 06/20/19 24 Within the past 12 months, t he food you bought just didn't last and you didn't have money to get more. Never true 06/20/2023 PRAPARE - Transportation Answer Date Re corded In the past 12 months, has l ack of transportation kept you from medical appointments or from getting medications? No 10/2023 In the past 12 months, has l ack of transportation kept you from meetings, work, or from getting things needed for daily living? No 06/20/2023 Abuse Screen Answer Date Recorded Feels Unsafe at Home or Work/School no 06/17/2023 Feels Threatened by Someone no 07/2023 Does Anyone Try to Keep You From Having Contact with Others or Doing Things Outside Your Home? no 06/17/2023 Physical Signs of Abuse Present no 06/17/2023 Housing Stability Answer Date Recorded Current Living Arrangements home 10/2023 Potentially Unsafe Housing Conditions none 06/20/2023 Family and Community Support Answer Molina e Recorded If for any reason you need h elp with day-to-day activities such as bathing, preparing meals, shopping, managing finances, etc., do you get the help you need? I get all the help I need 06/20/2023 How often do you feel lonely or isolated from those around you? Never 06/20/2023 Employment Answer Date Recorded Do you want help finding or keeping work or a job? I do not need or want help 06/20/2023 Disabilities Answer Date Recorded Difficulty Concentrating, Remembering or Making Decisions no 06/17/2023 Difficulty Managing Errands Independently no 06/17/2023 Education Answer Date Recorded Do you want help with school or training? For example, starting or completing job training or getting a high school diploma, GED or equivalent No 06/20/2023 Preferred Language Irish 06/20/2023 PHQ-2 Answer Date Recorded Retired PHQ-9: Brief Depression Severity Measure Score 0 06/20/2023 Comments No Sex and Gender Information Value Date Recorded Sex Assigned at Not on file Legal Sex Female 12:35 PM EDT Gender Identity Not on file Sexual Orientation Not on file Last Filed Vital Signs Vital Sign Reading Time Taken Comments Blood Pressure 152/90 06/28/2023 7:00 AM EDT Pulse 99 06/28/2023 7:00 AM EDT Temperature 36.4 C (97.6 F) 06/28/2023 7:00 AM EDT Respiratory Rate 20 06/28/2023 7:00 AM EDT Oxygen Saturation 96% 06/28/2023 6:00 AM EDT Inhaled Oxygen Concentration - - Weight 82.6 kg (182 lb 1.6 oz) 06/24/2023 7:16 A M EDT Height 165.1 cm (5' 5 ) 06/24/2023 7:16 AM EDT Body Mass Index 30.3 06/24/2023 7:16 AM EDT Plan of Treatment Health Maintenance Due Date Last Done Comments Annual Gynecologic Pelvic an d Breast Exam 1965 ZOSTER VACCINE (1 of 2) 07/04/1982 COLOGUARD 07/04/2008 COLON CANCER SCREENING 5 YEA R SIGMOIDOSCOPY 07/04/2008 COLONOSCOPY 07/04/2008 COLORECTAL CANCER SCREENING 07/04/2008 CT COLONOGRAPHY 07/04/2008 FECAL OCCULT BLOOD TEST 07/04/2008 FIT Testing (1 year) 07/04/2008 ANNUAL PHYSICAL 02/10/2017 HEPATITIS C SCREENING 02/10/2017 Pneumococcal Vaccine 50+ (2 of 2 - PCV) 03/24/2021 03/24/2020 MAMMOGRAM 03/24/2024 03/24/2022, 11/12, 12/16/2017, Additional history exists INFLUENZA VACCINE 10/12/2024 01/23/2020, , 12/15/2016, Additional history exists TDAP/TD VACCINES (2 - Td or Tdap) 08/21/2025 016 Procedures Procedure Name Priority Date/Time Associated Diagnosis Comments MAMMO SCREENING DIGITAL TOMOSYNTHESIS BILATERAL W CAD Routine 03/24/2022 9:26 AM EST Visit for screening mammogram from Last 3 Months or Most Recently Relevant to Health Maintenance Results * Mammo Screening Digital Tomosynthesis Bilateral With CAD (03/24/2022 9:26 AM EST) Anatomical Region Laterality Modality Breast N/A Mammography 04/01/2022 3:19 PM EST Impressions 04/01/2022 3:21 PM EST No findings suspicious for malignancy. ACR BI-RADS CATEGORY: 1, NEGATIVE RECOMMENDATION: Yearly mammogram, yearly clinical breast exam, and encourage self breast awareness. CAD was used. The standard false negative rate of mammography is between 10% and 25%. Complex patterns or increased breast density will markedly elevate the false negative rate of mammography. A letter, in lay terminology, with the results of this exam will be mailed to the patient. If there is a palpable area of concern, biopsy should be considered regardless of imaging findings. This report was finalized on 04/01/2022 3:21 PM by Farhana Stokes MD. Narrative 04/01/2022 3:21 PM EST ROUTINE DIGITAL SCREENING MAMMOGRAM WITH TOMOSYNTHESIS HISTORY: Routine screening. IMAGE COMPARISON: Extending to 89y. TECHNIQUE: Low dose full field digital breast tomosynthesis imaging was performed with 2D and 3D acquisitions consisting of bilateral CC and MLO views. FINDINGS: There are scattered fibroglandular densities. The fibroglandular pattern appears stable. There is no mass, worrisome microcalcifications, or architectural distortion to suggest development of malignancy. us Debbi Rodriges MD IMG MAMMOGRAPHY ORDERABLE S Final Result from Last 3 Months or Most Recently Relevant to Health Maintenance Insurance [facility] MEDICAID Advance Directives * CPR (Attempt to Resuscitate) (Latest Code Status on File) Date Activated Date Inactivated Comments 06/17/2023 6:50 PM 06/28/2023 2:53 PM Question Answer Comments Code Status (Patient has no pulse and is not breathing): CPR (Attempt to Resuscitate) Medical Interventions (Patie nt has pulse or is breathing): Full Support Level Of Support Discussed With: Patient Care Teams Prep Person Relationship Specialty Start Date End Date Tatianna Howard PA PCP - General Physician Heavy Media Operator 04/21/16
--- NOTE | 2025-02-26 14:00 | CT_ITS ---
FINAL REPORT TECHNIQUE: Thin section axial images are obtained through the abdomen and pelvis after intravenous contrast. Reconstruction images were obtained from the axial data. Exam was performed using dose reduction techniques. CLINICAL HISTORY: Lymphoma COMPARISON: 03/01/2023 FINDINGS: LIVER: Homogeneous. No focal lesion. GALLBLADDER/BILIARY SYSTEM: Gallbladder is mildly distended, similar to the prior study. No gallstones. No biliary dilatation. SPLEEN: Unremarkable. PANCREAS: Unremarkable. ADRENALS: Unremarkable. KIDNEYS/URETERS/BLADDER: No hydronephrosis, renal mass, or renal stone. Unremarkable urinary bladder. GI TRACT: No small bowel obstruction or dilatation. Normal appendix. Moderate to large amount of retained stool. PELVIC ORGANS: Uterus unremarkable for age. LYMPH NODES/RETROPERITONEUM/MESENTERY: No lymphadenopathy. No abdominal aortic aneurysm. ABDOMINAL WALL: The abdominal wall is intact. FREE FLUID: No ascites. BONES: No acute osseous abnormality. IMPRESSION: No acute abnormality of the abdomen or pelvis. Reviewed, Interpreted and Dictated by Traci Alvarado MD Transcribed by Chikis Hampton Authenticated and [facility]
--- NOTE | 2025-02-26 14:00 | CT_ITS ---
FINAL REPORT TECHNIQUE: Thin section axial images were obtained from the thoracic inlet through the upper abdomen after intravenous contrast injection. Reconstruction images were obtained from the axial data. Exam was performed using dose reduction technique. CLINICAL HISTORY: Lymphoma COMPARISON: 06/17/2023 FINDINGS: There is no mediastinal, hilar, or axillary lymphadenopathy. There is no pleural or pericardial effusion. Changes of emphysema are noted. There is evidence of prior granulomatous disease. Lungs are otherwise clear. No acute osseous abnormality. IMPRESSION: No acute intrathoracic abnormality. Reviewed, Interpreted and Dictated by Traci Alvarado MD Transcribed by Chikis Hampton Authenticated and [facility]
[2025-02-26] MEDS: IOPAMIDOL-370 (76%);100ML BOTTLE 75 ML IV (14:10)
[2025-02-26] MEDS: SODIUM CHLORIDE 0.9% 10ML SYR (RAD ONLY) 10 ML IV (14:10)
== END 2025-02-26 23:59 | disposition home or self-care (01) ==
LOC: RAD 13:37
PROVIDERS: PCP Family Medicine; Visit Provider Internal Medicine Medical Oncology
DX: C82.90 Follicular lymphoma, unspecified, unspecified site (principal)
CPT/HCPCS: 71260; 74177; Q9967